=== PATIENT | male | born 1940 | race Caucasian/White ===

== ENCOUNTER 2016-07-31 13:30 | Inpatient (IN) | payer MEDICARE, OTHER ==
[~2016-07-31] VITALS: Ht 175.3 cm; Wt 94.3 kg
[2016-07-31] VITALS (17 sets, daily range): BP systolic 104–137; BP diastolic 43–94; BMI 30.2
--- NOTE | 2016-07-31 00:45 | NUR ---
ASSISTED PT TO BEDSIDE COMMODE. GAIT STEADY. MODERATE AMOUNT OF LIQUID BROWN/MAROON STOOL. FEW CLOTS. WILL CONTINUE TO MONITOR.
[2016-07-31 14:35] LABS: BASOPHILS 0.3 % (0.0-2.0); EOSINOPHILS 0.5 % (0-7); IMMATURE GRANULOCYTES 0.2 % (0-5); LYMPHOCYTES 7.8 % (15-50); MCH 29.3 pg (26.0-34.0); MCHC 32.2 g/dL (31.0-37.0); MEAN PLATELET VOLUME 11.2 fL (7.4-10.4); MONOCYTES 7.1 % (2-11); NEUTROPHILS 84.1 % (40-80); PLATELET COUNT 126 10x3/uL (130-400); RDW 16.4 % (11.5-14.5); WBC 8.8 10x3/uL (4.8-10.8)
[2016-07-31 14:45] LABS: HEMOGLOBIN 3.9 g/dL (13.5-17.5); RBC 1.33 10x6/uL (4.20-6.10)
[2016-07-31 14:46] LABS: HEMATOCRIT 12.1 % (42.0-54.0)
[2016-07-31 14:52] LABS: APPEARANCE CLEAR (CLEAR); BILIRUBIN NEGATIVE (NEGATIVE); COLOR YELLOW (YELLOW); GLUCOSE NEGATIVE (NEGATIVE); KETONE NEGATIVE (NEGATIVE); LEUKOCYTE ESTERASE NEGATIVE (NEGATIVE); NITRITE NEGATIVE (NEGATIVE); PROTEIN TRACE mg/dL (NEGATIVE); SPECIFIC GRAVITY 1.015 (1.005-1.020); UROBILINOGEN NORMAL (NORMAL)
[2016-07-31 14:54] LABS: ALBUMIN 2.8 g/dL (3.4-5.0); ANION GAP 20.2 mmol/L (8-16); BILIRUBIN - TOTAL 0.22 mg/dL (0.2-1.3); CALCIUM 8.6 mg/dL (8.5-10.1); CARBON DIOXIDE 16.5 mmol/L (21.0-32.0); CREATININE - SERUM 5.4 mg/dL (0.6-1.3); POTASSIUM - SERUM 4.7 mmol/L (3.5-5.1); PROTEIN - SERUM 4.7 g/dL (6.4-8.2)
[2016-07-31 15:00] LABS: APTT 26.8 SECONDS (22.8-39.4); INR 1.24 (0.85-1.17); PROTIME 15.5 SECONDS (11.6-15.0)
[2016-07-31] MEDS ORDERED: BAYER CHEWABLE81 MG PO (16:27)
[2016-07-31] MEDS ORDERED: NORVASC5 MG PO (16:27)
[2016-07-31] MEDS ORDERED: ZYLOPRIM300 MG PO (16:27)
[2016-07-31] MEDS ORDERED: DIPHEDRYL25 MG PO (16:29)
[2016-07-31] MEDS ORDERED: FLUTICASONE PRO16 GM NASAL (16:31)
[2016-07-31] MEDS ORDERED: GABAPENTIN100 MG PO (16:32)
[2016-07-31] MEDS ORDERED: HCTZ25 MG PO (16:33)
[2016-07-31] MEDS ORDERED: COZAAR100 MG PO (16:34)
[2016-07-31] MEDS ORDERED: SAW PALMETTO450 MG PO (16:34)
[2016-07-31] MEDS ORDERED: HYTRIN1 MG PO (16:35)
--- NOTE | 2016-07-31 19:30 | NUR ---
ASSESSMENT COMPLETE. NSR SHOWING ON MONITOR. RR CLEAR; EQUAL; NON LABORED. PT FULL ROM. PAINTER PLATE STRENGTH EQUAL. PALE DISCOLORATION TO MUCOUS MEMBRANES. PT HAS BLOOD INFUSING. FISTUAL TO LEFT FOREARM; BRUIT AND THRILL PRESENT. PIV TO RIGHT WRIST; 18 GAUGE; PATENT. PT INCONTINENT OF URINE. PT ABLE TO MAKE POSITION CHANGES INDEPENDENTLY. AAO. ANSWERS QUESTIONS APPROPRIATELY.
--- NOTE | 2016-07-31 22:00 | NUR ---
ASSISTED PT ON BEDPAN. SMALL AMOUNT LIQUID MAROON STOOL; FEW SMALL CLOTS. PT CLEANED; LINENS CHANGED.
--- NOTE | 2016-07-31 22:50 | NUR ---
PT ASSISTED TO BEDPAN. SCANT AMOUNT OF MAROON STOOL; WITH FEW CLOTS.
--- NOTE | 2016-07-31 23:20 | NUR ---
REASSESSMENT COMPLETE. NO CHANGES FROM PREVIOUS ASSESSMENT. CALL LIGHT IN REACH. WILL CONTINUE TO MONITOR.
[2016-08-01] VITALS (26 sets, daily range): BP systolic 123–161; BP diastolic 50–79; Ht 175.3 cm; Wt 94.3 kg
--- NOTE | 2016-08-01 00:45 | NUR ---
ASSISTED PT TO BEDSIDE COMMODE; GAIT STEADY. MODERATE AMOUNT OF LIQUID BROWN/MAROON STOOL; FEW CLOTS. WILL CONTINUE TO MONITOR.
[2016-08-01 00:52] LABS: HEMOGLOBIN 5.6 g/dL (13.5-17.5)
--- NOTE | 2016-08-01 01:30 | NUR ---
HGB 5.6. HCT 17.0. ORDERS TO TRANSFUSE 2 UNITS. 1ST UNIT OF 2 PRBC STARTED.
--- NOTE | 2016-08-01 03:15 | NUR ---
REASSESSMENT COMPLETE. NO CHANGES FROM PREVIOUS ASSESSMENT. WILL CONTINUE TO MONITOR.
--- NOTE | 2016-08-01 04:00 | NUR ---
2ND UNIT OF PRBC STARTED. VSS. NO SIGNS OF REACTION. WILL CONTINUE TO MONITOR.
[2016-08-01 08:28] LABS: BASOPHILS 0.2 % (0.0-2.0); EOSINOPHILS 0.8 % (0-7); IMMATURE GRANULOCYTES 0.2 % (0-5); LYMPHOCYTES 14.6 % (15-50); MCH 29.8 pg (26.0-34.0); MCHC 35.2 g/dL (31.0-37.0); MEAN PLATELET VOLUME 10.5 fL (7.4-10.4); MONOCYTES 9.9 % (2-11); NEUTROPHILS 74.3 % (40-80); WBC 8.9 10x3/uL (4.8-10.8)
--- NOTE | 2016-08-01 08:39 | NUR ---
Is the patient Alert and Oriented? Yes 0 * How many steps to enter\exit or inside your home? 1 0 * PCP DR. ZULETA 0 * Pharmacy [facility] ON [facility]. 0 * Preadmission Environment Home with Family 0 * ADLs Independent 0 * Equipment None 0 * List name and contact numbers for known caregivers / representatives who currently or will assist patient after discharge: SPOUSE: HUE BATISTA [phone] * Community resources currently utilized None 0 * Additional services required to return to the preadmission environment? No 0 * Can the patient safely return to the preadmission environment? Yes 0 * Has this patient been hospitalized within the prior 30 days at any hospital? No PATIENT IS AWAKE AND ALERT. HE STATES HE LIVES AT HOME WITH HIS , HUE. SHE WILL BE AVAILABLE TO DRIVE HIM HOME AT DISCHARGE. PATIENT STATES HE WAS INDEPENDENT IN ALL ADLS PRIOR TO ADMIT. PATIENT STATES HIS PCP IS DR ZULETA. HE GETS HIS MEDS FROM [facility] [address]. HE DENIES USE OF ANY DME. PATIENT DENIES EVER HAVING HOME HEALTH CARE. THERE IS ONLY 1 STEP TO ENTER HIS HOME. NO DISCHARGE NEEDS IDENTIFIED AT THIS TIME.
[2016-08-01 08:44] LABS: ANION GAP 17.9 mmol/L (8-16); CALCIUM 9.1 mg/dL (8.5-10.1); CARBON DIOXIDE 18.4 mmol/L (21.0-32.0); CREATININE - SERUM 4.8 mg/dL (0.6-1.3); MAGNESIUM - SERUM 2.2 mg/dL (1.8-2.4); PHOSPHOROUS 4.1 mg/dL (2.5-4.9); POTASSIUM - SERUM 4.3 mmol/L (3.5-5.1)
[2016-08-01 09:02] LABS: HEMATOCRIT 21.6 % (42.0-54.0); HEMOGLOBIN 7.6 g/dL (13.5-17.5); RBC 2.55 10x6/uL (4.20-6.10)
[2016-08-01 09:03] LABS: MCV 84.7 fL (80.0-100.0); PLATELET COUNT 98 10x3/uL (130-400)
[2016-08-01 10:32] LABS: PLATELET ESTIMATE DECREASED
--- NOTE | 2016-08-01 11:15 | NUR ---
EGD COMPLETE BY DR SCOTT, DISCUSSED TRANSFUSION PARAMETERS.
[2016-08-01 16:07] LABS: CREATININE - URINE 35.6 mg/dL (30-125); PROTEIN - URINE 45.5 mg/dL (0.0-11.9)
[2016-08-01 16:23] LABS: HEMATOCRIT 25.3 % (42.0-54.0); HEMOGLOBIN 8.4 g/dL (13.5-17.5)
--- NOTE | 2016-08-01 19:30 | NUR ---
ASSESSMENT COMPLETE. RR CLEAR. PT AAO. PT FULL ROM; MOVES INDEPENDENTLY. DENIES PAIN. RADIAL AND PEDAL PULSES PALPATED. PERRLA. VSS. CALL LIGHT IN REACH. SEE FLOW SHEET FOR DETAILS.
--- NOTE | 2016-08-01 21:45 | NUR ---
PT WATCHING TV. DENIES ANY FURTHER NEEDS AT THIS TIME. CALL LIGHT IN REACH. VSS. WILL CONTINUE TO MONITOR.
--- NOTE | 2016-08-01 23:05 | NUR ---
REASSESSMENT COMPLETE. NO CHANGES FROM PREVIOUS ASSESSMENT. CALL LIGHT IN REACH. WILL CONTINUE TO MONITOR.
[2016-08-02] VITALS (16 sets, daily range): BP systolic 129–165; BP diastolic 43–88
--- NOTE | 2016-08-02 00:40 | NUR ---
COMPLETE BEDBATH. ISBELL CARE. COMPLETE LINEN CHANGE. PT AMBULATED TO BEDSIDE COMMODE; GAIT STEADY; SLIGHT WEAKNESS IN LOWER EXTREMITIES. WILL CONTINUE TO MONITOR.
--- NOTE | 2016-08-02 03:00 | NUR ---
REASSESSMENT COMPLETE. NO CHANGES FROM PREVIOUS ASSESSMENT. CALL LIGHT IN REACH. VSS. NO DISTRESS NOTED. SEE FLOW SHEET FOR DETAILS. WILL CONTINUE TO MONITOR.
[2016-08-02 04:35] LABS: BASOPHILS 0.2 % (0.0-2.0); EOSINOPHILS 1.9 % (0-7); HEMATOCRIT 24.5 % (42.0-54.0); HEMOGLOBIN 8.3 g/dL (13.5-17.5); IMMATURE GRANULOCYTES 0.3 % (0-5); LYMPHOCYTES 16.1 % (15-50); MCH 28.7 pg (26.0-34.0); MCHC 33.9 g/dL (31.0-37.0); MCV 84.8 fL (80.0-100.0); MEAN PLATELET VOLUME 10.7 fL (7.4-10.4); MONOCYTES 10.1 % (2-11); NEUTROPHILS 71.4 % (40-80); PLATELET COUNT 92 10x3/uL (130-400); RBC 2.89 10x6/uL (4.20-6.10); RDW 16.9 % (11.5-14.5); WBC 8.8 10x3/uL (4.8-10.8)
[2016-08-02 04:46] LABS: ANION GAP 16.3 mmol/L (8-16); CALCIUM 9.2 mg/dL (8.5-10.1); CARBON DIOXIDE 18.5 mmol/L (21.0-32.0); CREATININE - SERUM 3.9 mg/dL (0.6-1.3); MAGNESIUM - SERUM 2.1 mg/dL (1.8-2.4); PHOSPHOROUS 3.5 mg/dL (2.5-4.9); POTASSIUM - SERUM 3.8 mmol/L (3.5-5.1)
--- NOTE | 2016-08-02 07:15 | NUR ---
REPORT RECIEVED FROM WINDOWS DESKTOP ENGINEER NURSE. PT RESTING IN BED QUIETLY. NO S/SX OF ACUTE DISTRESS NOTED AT THIS TIME. CALL LIGHT IN REACH. BED IN LOW POSITION. ASSESSMENT COMPLETE PER FLOWSHEET.
[2016-08-02 08:28] LABS: HEMATOCRIT 26.3 % (42.0-54.0); HEMOGLOBIN 8.8 g/dL (13.5-17.5)
--- NOTE | 2016-08-02 08:30 | NUR ---
ASSISTED TO BSC. SMALL AMOUNT OF FORMED DARK STOOL NOTED. NO SIGNS OF ACTIVE BLEEDING.
--- NOTE | 2016-08-02 11:00 | NUR ---
ASSISTED TO BSC. MOD AMOUNT OF DARK STOOL NOTED. WILL CONT TO ASSESS FOR SIGNS OF BLEEDING.
--- NOTE | 2016-08-02 12:00 | NUR ---
ASSISTED TO SIDE OF BED FOR MEAL TRAY. DENIES FURTHER NEEDS. CALL LIGHT IN REACH. BED ALARM ON.
--- NOTE | 2016-08-02 13:45 | NUR ---
DR. SCOTT AT BEDSIDE. ORDER RECIEVED TO TRANSFER TO THE FLOOR.
--- NOTE | 2016-08-02 15:30 | NUR ---
PATIENT RECEIVED TO FLOOR FROM ICU VIA WHEELCHAIR. NO SIGNS OF DISTRESS NOTED. SITTING UP IN CHAIR ALERT WITH FAMILY PRESENT. ORIENTED TO ROOM. DENIES NEEDS. CALL LIGHT IN REACH.
--- NOTE | 2016-08-02 18:15 | NUR ---
SITTING UP IN CHAIR AT BEDSIDE ALERT. DENIES NEEDS. FAMILY PRESENT. CALL LIGHT IN REACH.
[2016-08-02 22:22] LABS: HEMATOCRIT 24.8 % (42.0-54.0); HEMOGLOBIN 8.5 g/dL (13.5-17.5)
[2016-08-03] VITALS: BP 150/63
--- NOTE | 2016-08-03 01:52 | NUR ---
EYES CLOSED. RESP EVEN AND UNLABORED. CL IN REACH. AT BEDSIDE.
--- NOTE | 2016-08-03 03:15 | NUR ---
RN NOTE: PT LYING ON RIGHT SIDE WITH EYES CLOSED AND EASY RESPIRATIONS. ISBELL CATHETER DRAINING TO GRAVITY WITY YELLOW URINE IN COLLECTION BAG. FAMILY MEMBER AT BEDSIDE. SIDE RAILS UP X2 FOR SAFETY.
[2016-08-03 04:00] VITALS: BP 160/86
--- NOTE | 2016-08-03 05:49 | NUR ---
AROUSES EASILY. NO COMPLAINTS VOICED. CL IN REACH. AT BEDSIDE
[2016-08-03 06:01] LABS: APTT 27.9 SECONDS (22.8-39.4); BASOPHILS 0.3 % (0.0-2.0); EOSINOPHILS 3.7 % (0-7); HEMATOCRIT 24.6 % (42.0-54.0); HEMOGLOBIN 8.3 g/dL (13.5-17.5); IMMATURE GRANULOCYTES 0.1 % (0-5); INR 1.12 (0.85-1.17); LYMPHOCYTES 18.1 % (15-50); MCH 29.2 pg (26.0-34.0); MCHC 33.7 g/dL (31.0-37.0); MCV 86.6 fL (80.0-100.0); MEAN PLATELET VOLUME 10.4 fL (7.4-10.4); MONOCYTES 13.3 % (2-11); NEUTROPHILS 64.5 % (40-80); PLATELET COUNT 110 10x3/uL (130-400); PROTIME 14.3 SECONDS (11.6-15.0); RBC 2.84 10x6/uL (4.20-6.10); RDW 16.8 % (11.5-14.5); WBC 7.6 10x3/uL (4.8-10.8)
[2016-08-03 06:35] LABS: % SATURATION 8 % (15-55); IRON 28 ug/dl (35-150); TOTAL IRON BIND CAPACITY 314 ug/dl (260-445); UNSAT IRON BIND CAPACITY 286 ug/dl (150-375)
[2016-08-03 06:44] LABS: ANION GAP 14.7 mmol/L (8-16); CALCIUM 9.1 mg/dL (8.5-10.1); CARBON DIOXIDE 19.8 mmol/L (21.0-32.0); CREATININE - SERUM 3.3 mg/dL (0.6-1.3); PHOSPHOROUS 3.8 mg/dL (2.5-4.9); POTASSIUM - SERUM 3.5 mmol/L (3.5-5.1)
[2016-08-03 06:45] LABS: MAGNESIUM - SERUM 1.8 mg/dL (1.8-2.4)
[2016-08-03] MEDS ORDERED: PROCRIT/EP10000 UNIT SC (08:18)
[2016-08-03] MEDS ORDERED: PROTONIX40 MG PO (08:19)
[2016-08-03 08:30] VITALS: BP 153/68
--- NOTE | 2016-08-03 09:45 | NUR ---
D/C ISBELL CATHETER. PATIENT TOLERATED WELL. EMPTIED 1800ML FROM ISBELL CATHETER.
--- NOTE | 2016-08-03 10:50 | NUR ---
CM REASSESSMENT NOTE: PATIENT IS DISCHARGING HOME TODAY WITH [facility] / PT AND PATIENTS SIGNED THE EBONY FORM. PATIENTS WALKER IS BEING DELIVERED TO HOSPITAL BEFORE DISCHARGE. PATIENTS WILL DRIVE HIM HOME AT DISCHARGE.
[2016-08-03 12:28] VITALS: BP 112/71
--- NOTE | 2016-08-04 08:17 | DS ---
PATIENT:Tien BATISTA :36 MEDICAL RECORD: [id number] DISCHARGE SUMMARY ADMISSION DATE: 07/31/16 DISCHARGE DATE: 08/03/16 DATE OF ADMISSION: 07/31/2016 DATE OF DISCHARGE: 08/03/2016 ADMISSION DIAGNOSES: Acute to acute gastrointestinal bleed, [id number] renal failure. DISCHARGE DIAGNOSES: Acute gastrointestinal bleed, zxmih-eq-ttenush renal failure. HOSPITAL COURSE: The patient was admitted to the Emergency Room, was hypotensive. Hemoglobin was 3.9, hematocrit 12.1, BUN was 117, creatinine was 5.4. The patient was hypotensive. He was admitted to the ICU. GI, Dr. Watson consulted and nephrology was consulted. The patient was typed and crossed and transfused a total of 6 units packed red blood cells. Underwent EGD, no significant findings. Renal function normalized with fluids and transfusion. H&H has been stable for 48 hours. The patient is anxious to go home. Vital signs are stable. Temperature 98.4, heart rate 66, respirations 18, blood pressure 160/86, O2 sat 96% room air. He is alert, oriented, no distress. H&H is significantly improved. Again, has remained stable for 48 hours. Presently at 8.3 and 24.6. The patient has been cleared for discharge by GI and nephrology. He will follow up in the clinic in 1 week and he will return immediately to the Emergency Room with worsening symptoms. DISCHARGE MEDICATIONS: Per med rec. Please see chart for further details of this case, also referred to agree with assessment by consulting physicians. TRANSINT:[id number] Voice Confirmation ID: [id number] DOCUMENT ID: [id number] CHRISTY CONTRERAS DO at 0817 CC: [id number] DICTATION DATE: 08/03/16826 [employer] OPERATIONS SUPERINTENDENT: 08/03/16 2317 DIS IN 08/03/16 [place] [id number] [place] [id number]
== END 2016-08-03 14:08 | disposition home health service (06) | DRG 377 ==
LOC: D.ER 13:30 → EDBD 13:30 → D.MS 15:46 → D.ICU 15:46 → D.MS 08-02 15:38
PROVIDERS: Emergency Medicine; Family Medicine; Internal Medicine Gastroenterology; Internal Medicine Nephrology; ADMIT Family Medicine
PROC: 0DJ08ZZ Inspection of Upper Intestinal Tract, Via Natural or Artificial Opening Endoscopic (ICD-10-PCS; principal; 2016-08-01 11:00)
DX: K92.2 Gastrointestinal hemorrhage, unspecified (principal); N17.0 Acute kidney failure with tubular necrosis; N18.4 Chronic kidney disease, stage 4 (severe); D62 Acute posthemorrhagic anemia; I12.9 Hypertensive chronic kidney disease with stage 1 through stage 4 chronic kidney disease, or unspecified chronic kidney disease; Z87.891 Personal history of nicotine dependence

== ENCOUNTER 2018-10-18 07:20 | Inpatient (IN) | payer MEDICARE, OTHER ==
[2018-10-18] VITALS (8 sets, daily range): BP systolic 93–145; BP diastolic 45–82; BMI 26.7
[~2018-10-18 07:20] MED LIST: BAYER CHEWABLE81 MG PO; COZAAR100 MG PO; DIPHEDRYL25 MG PO; FLUTICASONE PRO16 GM NASAL; GABAPENTIN100 MG PO; HCTZ25 MG PO; HYTRIN1 MG PO; NORVASC5 MG PO; PROCRIT/EP10000 UNIT SC; PROTONIX40 MG PO; SAW PALMETTO450 MG PO; ZYLOPRIM300 MG PO
[2018-10-18 07:52] LABS: APPEARANCE CLEAR (CLEAR); BACTERIA FEW /hpf (NONE SEEN); BILIRUBIN NEGATIVE (NEGATIVE); COLOR YELLOW (YELLOW); EPITHELIAL CELLS 0-5 /hpf (0-5); GLUCOSE NEGATIVE (NEGATIVE); KETONE NEGATIVE (NEGATIVE); MUCUS <1+ /lpf (NONE SEEN); NITRITE NEGATIVE (NEGATIVE); PROTEIN 2+ mg/dL (NEGATIVE); RED CELLS - URINE OCC /hpf (0-5); SPECIFIC GRAVITY 1.015 (1.005-1.020); UROBILINOGEN NORMAL (NORMAL); WHITE CELLS - URINE OCC /hpf (0-5)
[2018-10-18 07:53] LABS: GRANULAR CAST RARE /lpf (NONE SEEN)
[2018-10-18 07:55] LABS: BASOPHILS 0.2 % (0-2); EOSINOPHILS 0.4 % (0-7); HEMATOCRIT 28.5 % (42.0-54.0); HEMOGLOBIN 9.1 g/dL (13.5-17.5); IMMATURE GRANULOCYTES 0.2 % (0-5); LYMPHOCYTES 10.6 % (15-50); MCHC 31.9 g/dL (31.0-37.0); MCV 87.7 fL (80.0-100.0); MEAN PLATELET VOLUME 10.1 fL (7.4-10.4); NEUTROPHILS 77.6 % (40-80); PLATELET COUNT 123 10x3/uL (130-400); RBC 3.25 10x6/uL (4.20-6.10); RDW 15.5 % (11.5-14.5); WBC 10.4 10x3/uL (4.8-10.8)
[2018-10-18 08:10] LABS: ALBUMIN 3.5 g/dL (3.4-5.0); ANION GAP 19.5 mmol/L (8-16); BILIRUBIN - TOTAL 0.58 mg/dL (0.2-1.3); CALCIUM 9.8 mg/dL (8.5-10.1); CARBON DIOXIDE 23.8 mmol/L (21.0-32.0); CREATININE - SERUM 6.7 mg/dL (0.6-1.3); POTASSIUM - SERUM 3.3 mmol/L (3.5-5.1); PROTEIN - SERUM 7.3 g/dL (6.4-8.2)
[2018-10-18] MEDS ORDERED: LASIX80 MG PO (08:17)
[2018-10-18] MEDS ORDERED: SODIUM BICARBO650 MG PO (08:17)
[2018-10-18] MEDS ORDERED: BAYER CHEWABLE81 MG PO (08:18)
[2018-10-18] MEDS ORDERED: VITAMIN D250000 UNIT PO (08:18)
[2018-10-18] MEDS ORDERED: ZYLOPRIM300 MG PO (08:19)
[2018-10-18] MEDS ORDERED: NORVASC5 MG PO (08:19)
[2018-10-18] MEDS ORDERED: ULTRAM50 MG PO (08:20)
[2018-10-18] MEDS ORDERED: ROCALTROL0.25 MCG PO (08:20)
[2018-10-18] MEDS ORDERED: [UNRECOGNIZED DRUG - CODE] PO (08:21)
[2018-10-18] MEDS ORDERED: BIOFREEZE118 ML TOPICAL (08:21)
--- NOTE | 2018-10-18 09:46 | NUR ---
PT RESTING WITH EYES CLOSED, AT BEDSIDE.
--- NOTE | 2018-10-18 11:50 | NUR ---
NEW PATIENT ADMIT TO ROOM ACCOMPANIED BY . PATIENT TO ROOM VIA AND HOSPITAL PERSONNEL. PATIENT CHANGED INTO GOWN , NON SLIP SOCKS AND RESTING IN BED. PATIENT AND FAMILY ORIENTED TO ROOM, TV,AND CALL LIGHT. PATIENT IS STABLE AND VSS. NO ACUTE DISTRESS NOTED. PT ON RA. IV 20G SL TO RT WRIST. WILL PROCEED WITH PLAN OF CARE. BED IN LOW POSITION SR UP X 2 AND CALL LIGHT IN REACH.
--- NOTE | 2018-10-18 14:35 | NUR ---
PATIENT LAYING IN BED WITH EYES CLOSED AND BREATHING EVENLY. AT BS. WILL CONTINUE TO MONITOR. SR UP X 2 BED IN LOW POSITION AND CALL LIGHT IN REACH.
--- NOTE | 2018-10-18 17:30 | NUR ---
PER V/O DR MCCORMACK, BLADDER SCAN PATIENT. IF MORE THAN 300 CC'S, PLACE ISBELL CATHETER. SCANNED PATIENT WITH 264. DR MCCORMACK STILL ON UNIT AND REPORTED RESULTS. INSTRUCTED TO HAVE PUBLIC TRANSIT TROLLEY DRIVER REPEAT DURING SHIFT AND FOLLOW SAME ORDER. WILL GIVE INSTRUCTIONS IN PUBLIC TRANSIT TROLLEY DRIVER.
--- NOTE | 2018-10-18 19:33 | NUR ---
RECEIVED REPORT, WILL ASSUME CARE OF PT, AT BEDSIDE, BED IS LOW, SRX2, CALL LIGHT IN REACH, WILL CONTINUE PLAN OF CARE
--- NOTE | 2018-10-18 21:19 | NUR ---
PM MEDS GIVEN, PROVIDED URINAL FOR I&O, PROVIDED ICE WATER, CALL LIGHT IN REACH, WILL CONTINUE PLAN OF CARE
[2018-10-19] VITALS: BP 134/57
--- NOTE | 2018-10-19 02:52 | NUR ---
I have reviewed this patient and I concur with the Shift Assessment completed by the Licensed Practical Nurse today this shift.
[2018-10-19 04:00] VITALS: BP 94/58
[2018-10-19 05:54] LABS: BASOPHILS 0.1 % (0-2); EOSINOPHILS 0.6 % (0-7); HEMATOCRIT 27.4 % (42.0-54.0); HEMOGLOBIN 8.8 g/dL (13.5-17.5); IMMATURE GRANULOCYTES 0.3 % (0-5); LYMPHOCYTES 7.9 % (15-50); MCH 27.8 pg (26.0-34.0); MCHC 32.1 g/dL (31.0-37.0); MCV 86.7 fL (80.0-100.0); MEAN PLATELET VOLUME 11.4 fL (7.4-10.4); MONOCYTES 10.5 % (2-11); NEUTROPHILS 80.6 % (40-80); PLATELET COUNT 130 10x3/uL (130-400); RBC 3.16 10x6/uL (4.20-6.10); RDW 15.2 % (11.5-14.5)
[2018-10-19 06:23] LABS: ALBUMIN 3.1 g/dL (3.4-5.0); ANION GAP 18.6 mmol/L (8-16); BILIRUBIN - TOTAL 0.57 mg/dL (0.2-1.3); CALCIUM 9.6 mg/dL (8.5-10.1); CARBON DIOXIDE 25.5 mmol/L (21.0-32.0); CREATININE - SERUM 6.7 mg/dL (0.6-1.3); MAGNESIUM - SERUM 1.8 mg/dL (1.8-2.4); POTASSIUM - SERUM 3.1 mmol/L (3.5-5.1); PROTEIN - SERUM 7.1 g/dL (6.4-8.2)
--- NOTE | 2018-10-19 07:48 | NUR ---
PT RESTING IN BED WITH AT BEDSIDE, SHIFT ASSESSMENT PERFORMED. PT STATES HIS NAME AND WITHOUT HESITATION, BUT WHEN ASKED THE YEAR HE STATES IT IS 1921. HIS TELLS HIM NO AND ASKS AGAIN WHAT YEAR IT IS. THE PT STATES 1921 ONCE AGAIN. THE PT STATES HE IS IN [place] AND AT A HOSPITAL. NURSE ADVISED THE PT THAT HE WAS IN [place] AT [facility]. THE PT LOOKS CONFUSED AND NURSE ASKED PT IF HE REMEMBERS BEING IN [place]. THE PT SHAKES HIS HEAD NO. THE IS CONCERNED AND STATES THE PT HAS BEEN CONFUSED BUT NOT THIS BAD. WILL DISCUSS WITH MD. AM MEDICATIONS GIVEN ORDERED. PT TOLERATED WELL. CALL LIGHT WITHIN REACH. WILL CONT TO FOLLOW POC
[2018-10-19 08:00] VITALS: BP 149/61
[2018-10-19 12:00] VITALS: BP 140/57
--- NOTE | 2018-10-19 12:20 | NUR ---
PT RESTING IN BED, AT BEDSIDE. DENIES ANY NEEDS AT THIS TIME, WILL CONT TO FOLLOW POC
--- NOTE | 2018-10-19 16:25 | NUR ---
CALLED WITH PT BLADDER SCAN RESULTS. PT HAD 248 IN HIS BLADDER. PER PLACE ISBELL CATHETER. CALLED RAND BUTTER AND OBTAINED KUDAY CATHETER SINCE THE PT PROSTATE IS ENLARGED ON IMAGING. 16FR KUDAY ISBELL CATHETER INSERTED X1 ATTEMPT. PT TOLERATED WELL. WILL CONT TO FOLLOW POC
[2018-10-19 16:30] VITALS: BP 138/62
--- NOTE | 2018-10-19 19:28 | NUR ---
RECEIVED REPORT, WILL ASSUME CARE OF PT, SLEEPING, NO DISTRESS NOTICED AT THIS TIME, AT BEDSIDE, BED IS LOW, SRX2, CALL LIGHT IN REACH, WILL CONTINUE PLAN OF CARE
[2018-10-19 20:18] VITALS: BP 118/59
[2018-10-20] VITALS (7 sets, daily range): BP systolic 126–147; BP diastolic 62–73
--- NOTE | 2018-10-20 00:45 | NUR ---
I have reviewed this patient and I concur with the Shift Assessment completed by the Licensed Practical Nurse today this shift.
--- NOTE | 2018-10-20 01:00 | NUR ---
PT COMPLAINS OF PAIN, GAVE TRAMADOL ORDERED
[2018-10-20 06:34] LABS: BASOPHILS 0.2 % (0-2); EOSINOPHILS 0.7 % (0-7); HEMATOCRIT 26.8 % (42.0-54.0); HEMOGLOBIN 8.8 g/dL (13.5-17.5); IMMATURE GRANULOCYTES 0.7 % (0-5); LYMPHOCYTES 8.3 % (15-50); MCH 28.2 pg (26.0-34.0); MCHC 32.8 g/dL (31.0-37.0); MCV 85.9 fL (80.0-100.0); MEAN PLATELET VOLUME 12.1 fL (7.4-10.4); MONOCYTES 9.6 % (2-11); NEUTROPHILS 80.5 % (40-80); PLATELET COUNT 145 10x3/uL (130-400); RBC 3.12 10x6/uL (4.20-6.10); RDW 15.2 % (11.5-14.5); WBC 12.5 10x3/uL (4.8-10.8)
[2018-10-20 06:43] LABS: ANION GAP 19.3 mmol/L (8-16); BILIRUBIN - TOTAL 0.52 mg/dL (0.2-1.3); CALCIUM 9.5 mg/dL (8.5-10.1); CARBON DIOXIDE 25.7 mmol/L (21.0-32.0); CREATININE - SERUM 6.2 mg/dL (0.6-1.3); MAGNESIUM - SERUM 1.6 mg/dL (1.8-2.4); PROTEIN - SERUM 6.5 g/dL (6.4-8.2)
--- NOTE | 2018-10-20 08:30 | NUR ---
PT RESTING IN BED, SHIFT ASSESSMENT PERFORMED. AT BEDSIDE. HEMATURIA NOTED IN ISBELL CATHETER. ASKED PT IF THE CATHETER HURTS, PT STATES IT HURTS A LITTLE AND THE STATED THAT THE PT GOT UP TO THE COMMODE AND FORGOT TO CARRY THE BAG. DENIES NEEDS AT THIS TIME. CALL LIGHT WITHIN REACH. WILL CONT TO FOLLOW POC
--- NOTE | 2018-10-20 12:30 | NUR ---
PT RESTING IN BED, DENIES ANY NEEDS AT THIS TIME. CALL LIGHT WITHIN REACH. WILL CONT TO FOLLOW POC
--- NOTE | 2018-10-20 18:13 | NUR ---
PT RESTING IN BED, AT BEDSIDE. DENIES ANY NEEDS AT THIS TIME. WILL CONT TO FOLLOW POC
--- NOTE | 2018-10-20 20:08 | NUR ---
EVENING ROUNDS COMPLETED. REPORT RECEIVED. PT SITTING UP IN BED WITH EYES OPEN, RR EVEN AND UNLABORED. AT BEDSIDE. INTRODUCED SELF TO PT. PT DENIES FURTHER NEEDS AT THIS TIME. CALL LIGHT IN REACH. WILL CTM.
--- NOTE | 2018-10-21 01:42 | NUR ---
I have reviewed this patient and I concur with the Shift Assessment completed by the Licensed Practical Nurse today this shift.
[2018-10-21 03:45] VITALS: BP 134/68
[2018-10-21 06:27] LABS: BASOPHILS 0.2 % (0-2); EOSINOPHILS 1.8 % (0-7); HEMATOCRIT 26.9 % (42.0-54.0); HEMOGLOBIN 8.7 g/dL (13.5-17.5); IMMATURE GRANULOCYTES 0.2 % (0-5); LYMPHOCYTES 7.6 % (15-50); MCH 28.2 pg (26.0-34.0); MCHC 32.3 g/dL (31.0-37.0); MCV 87.1 fL (80.0-100.0); MEAN PLATELET VOLUME 12.2 fL (7.4-10.4); MONOCYTES 9.4 % (2-11); NEUTROPHILS 80.8 % (40-80); PLATELET COUNT 158 10x3/uL (130-400); RBC 3.09 10x6/uL (4.20-6.10); RDW 15.3 % (11.5-14.5); WBC 12.5 10x3/uL (4.8-10.8)
[2018-10-21 06:34] LABS: ANION GAP 18.6 mmol/L (8-16); BILIRUBIN - TOTAL 0.46 mg/dL (0.2-1.3); CALCIUM 9.4 mg/dL (8.5-10.1); CARBON DIOXIDE 25.7 mmol/L (21.0-32.0); CREATININE - SERUM 5.7 mg/dL (0.6-1.3); MAGNESIUM - SERUM 1.8 mg/dL (1.8-2.4); PHOSPHOROUS 7.2 mg/dL (2.5-4.9); POTASSIUM - SERUM 3.3 mmol/L (3.5-5.1); PROTEIN - SERUM 6.4 g/dL (6.4-8.2)
--- NOTE | 2018-10-21 07:23 | NUR ---
ALERT AND ORIENTED TO SELF. LUNGS CLEAR BILATERALLY IN ALL RODRIGUEZ. HEART SOUNDS S1 AND S2 HEARD IN ALL RODRIGUEZ. BOWEL SOUNDS ACTIVE X 4. STATES LAST HAD 2 BMS THURSDAY 10/19. SKIN INTACT WITHOUT REDNESS. IV TO RIGHT WRIST PATENT WITHOUT REDNESS. DENIES PAIN. DENIES NEEDS. BED LOW. FALL PRECAUTIONS IN PLACE. CALL ARAUJO AND PERSONAL ITEMS IN REACH. WILL CONTINUE TO MONITOR.
[2018-10-21 07:55] VITALS: BP 137/69
--- NOTE | 2018-10-21 09:00 | NUR ---
MEDICATIONS GIVEN WITHOUT DIFFICULTY. AT BEDSIDE. DENIES NEEDS.
--- NOTE | 2018-10-21 11:01 | NUR ---
SLEEPING. AT BEDSIDE.
[2018-10-21 12:06] VITALS: BP 139/68
--- NOTE | 2018-10-21 12:11 | NUR ---
LUNCH AT BEDSIDE. ADJUSTED IN BED PER STAFF. DENIES NEEDS.
--- NOTE | 2018-10-21 13:59 | NUR ---
RESTING IN BED. DENIES NEEDS.
[2018-10-21 16:30] VITALS: BP 111/60
--- NOTE | 2018-10-21 17:34 | NUR ---
DINNER AT BEDSIDE. DENIES NEEDS.
--- NOTE | 2018-10-21 18:16 | NUR ---
RESTING IN BED. DENIES NEEDS.
--- NOTE | 2018-10-21 19:20 | NUR ---
RECEIVED REPORT, WILL ASSUME CARE OF PT, SLEEPING, AT BEDSIDE, BED IS LOW, SRX2, CALL LIGHT IN REACH, WILL CONTINUE PLAN OF CARE
[2018-10-21 21:24] VITALS: BP 133/67
[2018-10-22 00:36] VITALS: BP 146/66
--- NOTE | 2018-10-22 05:29 | NUR ---
I have reviewed this patient and I concur with the Shift Assessment completed by the Licensed Practical Nurse today this shift.
--- NOTE | 2018-10-22 05:30 | NUR ---
I have reviewed this patient and I concur with the Shift Assessment completed by the Licensed Practical Nurse today this shift.
[2018-10-22 05:37] VITALS: BP 135/69
[2018-10-22 05:43] LABS: BASOPHILS 0.1 % (0-2); EOSINOPHILS 3.5 % (0-7); HEMATOCRIT 27.5 % (42.0-54.0); HEMOGLOBIN 8.8 g/dL (13.5-17.5); IMMATURE GRANULOCYTES 0.4 % (0-5); LYMPHOCYTES 7.3 % (15-50); MCV 87.6 fL (80.0-100.0); MEAN PLATELET VOLUME 10.6 fL (7.4-10.4); MONOCYTES 8.6 % (2-11); NEUTROPHILS 80.1 % (40-80); PLATELET COUNT 140 10x3/uL (130-400); RBC 3.14 10x6/uL (4.20-6.10); RDW 15.3 % (11.5-14.5); WBC 10.7 10x3/uL (4.8-10.8)
[2018-10-22 06:03] LABS: ALBUMIN 2.8 g/dL (3.4-5.0); ANION GAP 17.5 mmol/L (8-16); BILIRUBIN - TOTAL 0.52 mg/dL (0.2-1.3); CALCIUM 9.6 mg/dL (8.5-10.1); CARBON DIOXIDE 26.7 mmol/L (21.0-32.0); CREATININE - SERUM 5.4 mg/dL (0.6-1.3); MAGNESIUM - SERUM 1.8 mg/dL (1.8-2.4); POTASSIUM - SERUM 3.2 mmol/L (3.5-5.1); PROTEIN - SERUM 7.1 g/dL (6.4-8.2)
--- NOTE | 2018-10-22 07:45 | NUR ---
ALERT AND ORIENTED TO SELF WITH CONFUSION. LUNGS CLEAR BILATERALLY IN ALL RODRIGUEZ. HEART SOUNDS S1 AND S2 HEARD IN ALL RODRIGUEZ. BOWEL SOUNDS ACTIVE X 4. IV TO RIGHT WRIST PATENT WITHOUT REDNESS. LEFT AV FISTULA PATENT. ISBELL IN PLACE WITH HEMATURIA. STATES PATIENT TRIED TO PULL OUT ISBELL LAST NIGHT. NO SWELLING OR SIGNS OF TRAUMA NOTED. DENIES PAIN. DENIES NEEDS. BED LOW. CALL ARAUJO AND PERSONAL ITEMS IN REACH. WILL CONTINUE TO MONITOR.
[2018-10-22 07:56] VITALS: BP 132/61
--- NOTE | 2018-10-22 10:12 | NUR ---
RESTING IN BED. AT BEDSIDE. DENIES PAIN. DENIES NEEDS.
--- NOTE | 2018-10-22 11:59 | NUR ---
LUNCH AT BEDSIDE. AT BEDSIDE. DENIES NEEDS.
[2018-10-22 12:03] VITALS: BP 124/76
[2018-10-22 13:39] VITALS: BMI 27.1
[2018-10-22 14:11] LABS: HEPATITIS C ANTIBODY 0.1 S/CO RAT (0.0-0.9)
--- NOTE | 2018-10-22 15:13 | NUR ---
Rehab Note- Acute Inpatient Rehab prescreen order received. The patient has a pending PT Eval- will await & see the patient's functional mobililty. Will continue to follow. Thank you for this referral! Rae Keenan RN CLinical Liaison, [facility] Rehab
--- NOTE | 2018-10-22 15:39 | NUR ---
RESTING IN BED. AT BEDSIDE. DENIES NEEDS.
--- NOTE | 2018-10-22 15:54 | MORECARE ---
CASE MANAGEMENT DISCHARGE SUMMARY PATIENT: Tien BATISTA UNIT: [id number] ADM DATE: 10/18/18 AGE: 77 : 38 SEX: M ROOM[facility]BED: D.[facility] AUTHOR: NISHANT VICK PHYSICIAN: REFERRING PHYSICIAN: PAO PATEL MD DATE OF SERVICE: 10/22/18 Discharge Plan Patient Name: Tien BATISTA Facility: [facility]:[place] : 1940 Planned Disposition: Inpatient Rehab Anticipated Discharge Date: 10/23/18 Discharge Date: Expected LOS: 5 Initial Reviewer: [email or web address] Initial Review Date: 10/22/2018 Generated: 10/22/18 4:54 pm DCPIA - Discharge Planning Initial Assessment Updated by ASPEN: Ambrosio Lynn on 10/22/18 3:51 pm * Is the patient Alert and Oriented? Yes * How many steps to enter\exit or inside your home? * PCP DR. ZULETA * [facility]acy [facility] [address] * Preadmission Environment Home with Family * ADLs Independent * Equipment Walker * Other Equipment NO MEDICAL EQUIPMENT PROVIDER PREFERENCE * List name and contact numbers for known caregivers / representatives who currently or will assist patient after discharge: HUE BATISTA, SPOUSE, * Verbal permission to speak to the caregivers and representatives has been obtained from the patient. Yes * Community resources currently utilized None * Please name any agencies selected above. NONE * Additional services required to return to the preadmission environment? Yes * Can the patient safely return to the preadmission environment? Yes * Has this patient been hospitalized within the prior 30 days at any hospital? No Coverage Notice Reviewer: [id number] - Ambrosio Lynn Notice Issued Date-Time: 10/22/2018 15:40 Notice Type: IM Discharge Notice Notice Delivered To: Family Member Relationship to Patient: Spouse Caster Investment Casting Name: HUE BATISTA Delivery Method: HAND - Hand Delivered Nadine Days: Prior Verbal Notification: Recipient Understood Notice: Yes Recipient Signature: Yes Med Rec Note Co-signed by Attending: Coverage Notice Comment: Patient Name: Tien BATISTA Page [id number] at 1554 All edits/amendments must be made on the electronic document DICTATION DATE: 10/22/181552 SALES SUPPORT ASSOCIATE: KIMBERLY 10/22/181552 RPT#: [id number] DC DATE: STATUS: ADM IN [facility] [address] [place] [address] END OF REPORT
[2018-10-22 15:55] VITALS: BP 141/63
--- NOTE | 2018-10-22 16:03 | MORECARE ---
CASE MANAGEMENT DISCHARGE SUMMARY PATIENT: Tien BATISTA UNIT: [id number] ADM DATE: 10/18/18 AGE: 77 : 38 SEX: M ROOM/BED: D.2139 AUTHOR: NICANORDOC PHYSICIAN: REFERRING PHYSICIAN: PAO PATEL MD DATE OF SERVICE: 10/22/18 Discharge Plan Patient Name: Tien BATISTA [facility] [facility] 1940 Planned Disposition: Inpatient Rehab Anticipated Discharge Date: 10/23/18 Discharge Date: Expected LOS: 5 Initial Reviewer: [email or web address] Initial Review Date: 10/22/2018 Generated: 10/22/18 5:03 pm Comments DCP- Discharge Planning Updated by [email or web address]: Ambrosio Lynn on 10/22/18 2:[address] Patient Name: Tien BATISTA Admission Status: ER Accout number: [id number] Admission Date: 10-18-2018 : 1940 Admission Diagnosis: Attending: PABLO PATEL Current LOS: 4 Anticipated DC Date: 10-23-2018 Planned Disposition: Inpatient Rehab Primary Insurance: MEDICARE A & B PLANNED EXTERNAL PROVIDER: [facility] INPATIENT REHAB Discharge Planning Comments: CM RECEIVED ORDER FOR INPATIENT REHAB PRESCREENING. CM MET WITH PT AND SPOUSE IN ROOM TO DISCUSS DISCHARGE PLANNING AND NEEDS. Tien BATISTA provided verbal consent to discuss current and ongoing needs with/in the presence of: SPOUSE, JOESharifa. PT REPORTS LIVING AT HOME INDEPENDENTLY WITH SPOUSE; PT REPORTS SHE HELPS PT WASH HIS BACK AT HOME, PT HAS OTHERWISE BEEN INDEPENDENT UNTIL GETTING SICK. PT HAS WALKER WITH NO MEDICAL EQUIPMENT PROVIDER PREFERNECE. PT HAS NO OUTSIDE SERVICES ASSISTING IN THE HOME. CM DISCUSSED AVAILABILITY OF HOME HEALTH, REHAB SERVICES AND MEDICAL EQUIPMENT. PT AND SPOUSE WOULD CONSIDER REHAB AT [place], NO WHERE ELSE, WITH PLAN TO DISCHARGE HOME WITH SPOUSE AFTER REHAB. IMPORTANT MESSAGE FROM MEDICARE PROVIDED AND EXPLAINED. PT AND SPOUSE WOULD LIKE TO CONSIDER REHAB AT [facility]. CM WAITING PHYSICAL THERAPY EVALUATION AND INPATIENT REHAB PRESCREENING RESULTS FROM [facility] INPATIENT REHAB. Associate Juvenile Court Judge: Ambrosio Lynn DCPIA - Discharge Planning Initial Assessment Updated by [email or web address]: Ambrosio Lynn on 10/22/18 3:51 pm * Is the patient Alert and Oriented? Yes * How many steps to enter\exit or inside your home? * PCP DR. ZULETA * Pharmacy [facility] [address] * Preadmission Environment Home with Family * ADLs Independent * Equipment Walker * Other Equipment NO MEDICAL EQUIPMENT PROVIDER PREFERENCE * List name and contact numbers for known caregivers / representatives who currently or will assist patient after discharge: HUE BATISTA, SPOUSE, * Verbal permission to speak to the caregivers and representatives has been obtained from the patient. Yes * Community resources currently utilized None * Please name any agencies selected above. NONE * Additional services required to return to the preadmission environment? Yes * Can the patient safely return to the preadmission environment? Yes * Has this patient been hospitalized within the prior 30 days at any hospital? No Coverage Notice Reviewer: [id number] - Ambrosio Castañedawell Notice Issued Date-Time: 10/22/2018 15:40 Notice Type: IM Discharge Notice Notice Delivered To: Family Member Relationship to Patient: Spouse Plaster Patternmaker Name: HUE BATISTA Delivery Method: HAND - Hand Delivered Nadine Days: Prior Verbal Notification: Recipient Understood Notice: Yes Recipient Signature: Yes Med Rec Note Co-signed by Attending: Coverage Notice Comment: Last DP export: 10/22/18 2:54 p Patient Name: Tien BATISTA Page [phone] at 1603 All edits/amendments must be made on the electronic document DICTATION DATE: 10/22/181601 HEALTH CARE AIDE: KIMBERLY 10/22/18 160 RPT#: [id number] DC DATE: STATUS: ADM IN [facility] [address] [place] [address] END OF REPORT
--- NOTE | 2018-10-22 17:21 | NUR ---
DINNER AT BEDSIDE. AT BEDSIDE. DENIES NEEDS.
--- NOTE | 2018-10-22 18:14 | NUR ---
RESTING IN BED. DENIES PAIN. DENIES NEEDS.
--- NOTE | 2018-10-22 19:02 | NUR ---
PT IN BED RESTING QUIETLY. AT BEDSIDE.
[2018-10-22 20:28] VITALS: BP 141/66
[2018-10-23 00:14] VITALS: BP 151/77
[2018-10-23 04:46] VITALS: BP 148/81
[2018-10-23 06:10] LABS: BASOPHILS 0 % (0-2); EOSINOPHILS 0 % (0-7); HEMATOCRIT 28.4 % (42.0-54.0); IMMATURE GRANULOCYTES 0.4 % (0-5); LYMPHOCYTES 4.2 % (15-50); MCHC 31.7 g/dL (31.0-37.0); MCV 88.2 fL (80.0-100.0); MEAN PLATELET VOLUME 11.5 fL (7.4-10.4); MONOCYTES 5.7 % (2-11); NEUTROPHILS 89.7 % (40-80); PLATELET COUNT 162 10x3/uL (130-400); RBC 3.22 10x6/uL (4.20-6.10); RDW 15.4 % (11.5-14.5)
[2018-10-23 06:40] LABS: ALBUMIN 3.1 g/dL (3.4-5.0); ANION GAP 20.6 mmol/L (8-16); BILIRUBIN - TOTAL 0.42 mg/dL (0.2-1.3); CARBON DIOXIDE 24.7 mmol/L (21.0-32.0); CREATININE - SERUM 5.2 mg/dL (0.6-1.3); PHOSPHOROUS 6.2 mg/dL (2.5-4.9); POTASSIUM - SERUM 3.3 mmol/L (3.5-5.1); PROTEIN - SERUM 6.9 g/dL (6.4-8.2)
[2018-10-23 08:15] VITALS: BP 104/74
[2018-10-23 11:40] VITALS: BP 130/67
[2018-10-23 15:24] VITALS: BP 136/70
--- NOTE | 2018-10-23 16:27 | NUR ---
Rehab Note- Continue to follow at this time. The is having gross hematuria and requiring hitchcock irrigation d/t clots and causing urinary obstruction. Will continue to follow at this time. Thank you for this referral! Rae Keenan RN Clinical Liaision, [facility] Rehab
--- NOTE | 2018-10-23 19:28 | NUR ---
PT IN BED. AT BEDSIDE. PT DENIES NEEDS AT THIS TIME.
[2018-10-23 22:50] VITALS: BP 107/65
[2018-10-24 05:14] VITALS: BP 118/66
[2018-10-24 06:33] LABS: BASOPHILS 0.1 % (0-2); EOSINOPHILS 1.4 % (0-7); HEMATOCRIT 27.1 % (42.0-54.0); HEMOGLOBIN 8.7 g/dL (13.5-17.5); IMMATURE GRANULOCYTES 0.3 % (0-5); LYMPHOCYTES 8.3 % (15-50); MCH 28.3 pg (26.0-34.0); MCHC 32.1 g/dL (31.0-37.0); MCV 88.3 fL (80.0-100.0); MEAN PLATELET VOLUME 11.4 fL (7.4-10.4); MONOCYTES 10.6 % (2-11); NEUTROPHILS 79.3 % (40-80); PLATELET COUNT 167 10x3/uL (130-400); RBC 3.07 10x6/uL (4.20-6.10); RDW 15.7 % (11.5-14.5); WBC 10.4 10x3/uL (4.8-10.8)
[2018-10-24 06:52] LABS: ANION GAP 15.6 mmol/L (8-16); CALCIUM 10.3 mg/dL (8.5-10.1); CARBON DIOXIDE 26.5 mmol/L (21.0-32.0); CREATININE - SERUM 5.5 mg/dL (0.6-1.3); POTASSIUM - SERUM 3.1 mmol/L (3.5-5.1)
[2018-10-24 07:27] VITALS: BP 123/72
--- NOTE | 2018-10-24 07:32 | NUR ---
ROUNDING DONE WITH PATIENT NEEDING TO USE THE RESTROOM PAST ISBELL CATH REMOVAL. ASSISTED PATIENT TO RESTROOM WITH URINAL TO VOID, UNABLE TO GO. ISEBLL CATH WAS JUST REMOVED AT 0630. AT BEDSIDE. ON ROOM AIR. RIGHT WIRST PIV SEEN WITH SALINE LOCK. RESE. LEFT ARM WITH AVF, + BRUIT AND THRILL. ON EP, K+ IS 3.1, WILL COVER WITH ORAL SUPPLEMENTS.
--- NOTE | 2018-10-24 08:24 | NUR ---
PATIENT HAS USED URINAL TO VOID 100 CC.
[2018-10-24 11:10] VITALS: BP 123/68
--- NOTE | 2018-10-24 12:40 | NUR ---
RE-DRAW OF POTASSIUM WITH RESULTS OF 3.5. WOULD COVER WITH ADDITIONAL ORAL SUPPLEMENT BUT WAS STARTED ON ORAL TODAY.
--- NOTE | 2018-10-24 13:48 | NUR ---
BLADDER SCAN DONE ORDERED PER DR MCCORMACK. [address] MCCORMACK WANTS ME TO SCAN AGAIN AT [phone] THEN [address] JOEL.
--- NOTE | 2018-10-24 14:04 | NUR ---
Nutrition follow-up: Diet: Renal PO intake 75-100% of meals Labs reviewed Wt:210# RDN following.
[2018-10-24 15:22] VITALS: BP 135/62
--- NOTE | 2018-10-24 15:33 | NUR ---
ASSSITED PATIENT TO BATHROOM TO VOID AGAIN. POST VOID BLADDER SCAN SHOWS 33 ML.
--- NOTE | 2018-10-24 19:20 | NUR ---
PT SEEMS CONFUSED NOT FOLLOWING COMANDS WELL. LUNGS CLEAR BOWEL SOUNDS X4 AND NO BLADDER DISTENTION. BED IS LOW AND LOCKED IV PATENT AT 75/HR IS WITH PT AND DENIES NEEDS AT THIS TIME
[2018-10-24 20:00] VITALS: BP 135/75
--- NOTE | 2018-10-25 00:38 | NUR ---
ASSESTED TO STAND AND USE URINAL...PT WAS NOT ABLE TO FOLLOW COMANDS BUT SUCESSFULLY VOIDED 150 CC
[2018-10-25 04:30] VITALS: BP 122/69
--- NOTE | 2018-10-25 04:33 | NUR ---
I have reviewed this patient and I concur with the Shift Assessment completed by the Licensed Practical Nurse today this shift.
--- NOTE | 2018-10-25 07:33 | NUR ---
ROUNDING DONE WITH AT BEDSIDE. ISAÍAS MAT ALARM IS ON. PATIENT IS CONFUSED BUT ALERT. ON ROOM AIR. RIGHT WRIST PIV SEEN WITH D5W INFUSING AT 75 CC/HR. RESE. LEFT ARM WITH AVF, + BRUIT AND THRILL. ON EP, NO LAB VALUSE BACK YET. WILL MONITOR.
[2018-10-25 08:18] LABS: BASOPHILS 0.2 % (0-2); HEMATOCRIT 28.4 % (42.0-54.0); IMMATURE GRANULOCYTES 0.4 % (0-5); LYMPHOCYTES 7.5 % (15-50); MCHC 31.7 g/dL (31.0-37.0); MCV 88.5 fL (80.0-100.0); MEAN PLATELET VOLUME 10.8 fL (7.4-10.4); MONOCYTES 11.1 % (2-11); NEUTROPHILS 78.8 % (40-80); PLATELET COUNT 175 10x3/uL (130-400); RBC 3.21 10x6/uL (4.20-6.10); RDW 15.4 % (11.5-14.5)
[2018-10-25 08:30] VITALS: BP 143/78
[2018-10-25 08:38] LABS: ANION GAP 17.1 mmol/L (8-16); CALCIUM 9.8 mg/dL (8.5-10.1); CARBON DIOXIDE 24.3 mmol/L (21.0-32.0); CREATININE - SERUM 5.9 mg/dL (0.6-1.3); PHOSPHOROUS 6.3 mg/dL (2.5-4.9); POTASSIUM - SERUM 3.4 mmol/L (3.5-5.1)
--- NOTE | 2018-10-25 10:28 | NUR ---
DR MCCORMACK HERE TO SEE PATIENT AND . HE REQUESTS A BLADDER SCAN TO BE DONE. DONE WITH RESIDUAL OF 24 ML. AWAITING NEW ORDERS.
--- NOTE | 2018-10-25 11:18 | NUR ---
[address] WITH NO DIFFICULTY. RETURN OF 100 CC CLEAR YELLOW URINE.
--- NOTE | 2018-10-25 11:38 | NUR ---
LARGE BRUISE SEEN TO LEFT HIP AREA, THIS WAS ALSO THERE YESTERDAY DURING ASSESSMENT.
[2018-10-25 12:30] VITALS: BP 129/90
--- NOTE | 2018-10-25 13:51 | NUR ---
COMPLETE BATH AND LINEN CHANGE DONE WITH SHAVE. ISAÍAS MAT ALARM IS ON AND IN USE. AT BEDSIDE.
--- NOTE | 2018-10-25 14:07 | NUR ---
RESULTS OF POTASSIUM REDRAW IS 4.3. NO NEED FOR FURTHER COVER TODAY OF SUPPLEMENTS.
[2018-10-25 16:30] VITALS: BP 156/82
--- NOTE | 2018-10-25 19:25 | NUR ---
WAKE BUT CONFUSED ...NOT ANSWERING QUESTIONS PICKING SOME AT AIR WITH FINGERS... ABD DISTENDED BUT BOWEL SOUNDS X4 NO BLADDER DISTENSION...ISBELL IN PLACE TO GRAVITY ...BED IS LOW AND LOCKED FAMILY ARE PRESENT WITH PT AND ISAÍAS ALARM IS ON
[2018-10-25 20:08] VITALS: BP 131/72
--- NOTE | 2018-10-25 21:05 | NUR ---
I have reviewed this patient and I concur with the Shift Assessment completed by the Licensed Practical Nurse today this shift.
[2018-10-26 00:45] VITALS: BP 138/79
[2018-10-26 03:37] LABS: BASOPHILS 0.1 % (0-2); EOSINOPHILS 1.1 % (0-7); HEMOGLOBIN 8.9 g/dL (13.5-17.5); IMMATURE GRANULOCYTES 0.4 % (0-5); LYMPHOCYTES 6.1 % (15-50); MCHC 31.8 g/dL (31.0-37.0); MCV 88.1 fL (80.0-100.0); MEAN PLATELET VOLUME 10.8 fL (7.4-10.4); MONOCYTES 12.5 % (2-11); NEUTROPHILS 79.8 % (40-80); PLATELET COUNT 186 10x3/uL (130-400); RBC 3.18 10x6/uL (4.20-6.10); RDW 15.6 % (11.5-14.5); WBC 10.4 10x3/uL (4.8-10.8)
[2018-10-26 03:43] LABS: ANION GAP 18.2 mmol/L (8-16); CARBON DIOXIDE 23.2 mmol/L (21.0-32.0); POTASSIUM - SERUM 4.4 mmol/L (3.5-5.1)
[2018-10-26 03:49] VITALS: BP 146/76
--- NOTE | 2018-10-26 07:05 | NUR ---
REC'D PT LYING IN BED WITH AT BEDSIDE. PT IS CONTINOUSLY CONFUSED. PT IS BED BOUND AT THIS TIME. RESP EVEN AND UNLABORED LUNG SOUNDS COARSE BILATERAL. PT AWAKENS EASILY TO VERBAL STIMULI, AND DRIFTING QUICKLY OFF TO SLEEP. PT REPORTS PT MORE CONFUSED TODAY. PT INCONTINENT OF BOWEL AND HAS INDWELLING ISBELL CATH PATENT AND INTACT AT THIS TIME WITH CLEAR YELLOW URINE IN ISBELL BAG. SKIN PINK WARM AND DRY WITH GOOD TURGOR. WILL CONTINUE TO MONITOR
[2018-10-26 08:31] VITALS: BP 144/81
[2018-10-26 11:30] VITALS: BP 110/65
[2018-10-26 16:34] VITALS: BP 134/74
--- NOTE | 2018-10-26 18:25 | NUR ---
REPORTED PT DAUGHTER- MANDO HYLTON'S CONCERNS TO AT THIS TIME, PHONE NUMBER [phone] GIVEN TO HIM FOR HIM TO MAKE CONTACT WITH HER.
--- NOTE | 2018-10-26 18:55 | NUR ---
AWAKE WITH FAMILY PRESENT BED LOW AND LOCKED SRX2 AND CALL LIGHT IS IN PLACE LCTA IV TO RT FA PATENT INFUSINF AT 50/HR...BOWEL SOUNDS X4 AND ISBELL TO GRAVITY WITH LITTLE URIN PRESENT..BED ALARM FUNCTIONING
[2018-10-26 20:14] VITALS: BP 117/75
[2018-10-27 03:49] VITALS: BP 134/76
--- NOTE | 2018-10-27 04:26 | NUR ---
I have reviewed this patient and I concur with the Shift Assessment completed by the Licensed Practical Nurse today this shift.
[2018-10-27 04:45] LABS: BASOPHILS 0.1 % (0-2); EOSINOPHILS 1.2 % (0-7); HEMATOCRIT 28.2 % (42.0-54.0); HEMOGLOBIN 8.8 g/dL (13.5-17.5); IMMATURE GRANULOCYTES 0.4 % (0-5); LYMPHOCYTES 4.6 % (15-50); MCH 27.5 pg (26.0-34.0); MCHC 31.2 g/dL (31.0-37.0); MCV 88.1 fL (80.0-100.0); MEAN PLATELET VOLUME 10.8 fL (7.4-10.4); NEUTROPHILS 81.7 % (40-80); PLATELET COUNT 193 10x3/uL (130-400); RDW 15.6 % (11.5-14.5); WBC 10.6 10x3/uL (4.8-10.8)
[2018-10-27 05:00] LABS: ANION GAP 19.7 mmol/L (8-16); CALCIUM 10.1 mg/dL (8.5-10.1); CREATININE - SERUM 6.3 mg/dL (0.6-1.3); POTASSIUM - SERUM 4.7 mmol/L (3.5-5.1)
[2018-10-27 05:01] LABS: PHOSPHOROUS 8.1 mg/dL (2.5-4.9)
[2018-10-27 10:00] VITALS: BP 165/70
--- NOTE | 2018-10-27 14:00 | NUR ---
ALERT AND ORIENTED X4. REQUESTING CASE MANAGEMENT. NOTIFY ANISA WITH CASE MANAGEMENT PATIENT REQUEST. DENIES ANY FURTHER NEEDS. DENIES SOB OR PAIN. CONTINUE PLAN OF CARE AND SAFETY PRECAUTIONS.
--- NOTE | 2018-10-27 17:00 | NUR ---
CONFUSED. SPEECH GARBLED. SPOUSE AT BEDSIDE REQUESTING UPDATE ON WHEN DIALYSIS WILL BE. INFORM SPOUSE DIALYSIS NURSE IN ICU GIVING TREATMENT. AFTER TREATMENT COMPLETE NURSE WILL INITIATE DIALYSIS ON PATIENT. ISBELL DRAINING BY GRAVITY. DENIES ANY FURTHER NEEDS. CONTINUE PLAN OF CARE AND SAFETY PRECAUTIONS.
[2018-10-27 17:14] VITALS: BP 147/87
[2018-10-27 19:55] VITALS: BP 129/63
--- NOTE | 2018-10-27 20:00 | NUR ---
RECIEVED BEDSIDE REPORT. VSS, ALERT BUT CONFUSED. @ BESIDE. STATES DR. GARCIA WANTED PT TO HAVE DIALYSIS IN THE ROOM. DR. GARCIA STATES IT IS FINE TO HAVE DIALYSIS DONE IN DIALYSIS UNIT. PT CURRENTLY OUT FOR DIALYSIS. WILL CPOC.
[2018-10-27 23:49] VITALS: BP 127/88
[2018-10-28 03:43] VITALS: BP 139/72
[2018-10-28 05:56] LABS: BASOPHILS 0.2 % (0-2); EOSINOPHILS 1.3 % (0-7); HEMATOCRIT 28.3 % (42.0-54.0); IMMATURE GRANULOCYTES 0.4 % (0-5); MCH 27.9 pg (26.0-34.0); MCHC 31.8 g/dL (31.0-37.0); MCV 87.6 fL (80.0-100.0); MEAN PLATELET VOLUME 10.7 fL (7.4-10.4); MONOCYTES 5.7 % (2-11); NEUTROPHILS 85.4 % (40-80); PLATELET COUNT 197 10x3/uL (130-400); RBC 3.23 10x6/uL (4.20-6.10); RDW 15.6 % (11.5-14.5); WBC 10.2 10x3/uL (4.8-10.8)
[2018-10-28 07:38] VITALS: BP 138/74
[2018-10-28 07:54] LABS: ANION GAP 18.8 mmol/L (8-16); CALCIUM 9.5 mg/dL (8.5-10.1); CARBON DIOXIDE 23.3 mmol/L (21.0-32.0); CREATININE - SERUM 4.8 mg/dL (0.6-1.3); POTASSIUM - SERUM 4.1 mmol/L (3.5-5.1)
[2018-10-28 11:56] VITALS: BP 116/67
--- NOTE | 2018-10-28 15:30 | NUR ---
TAKEN TO DIALYSIS VIA BED. CONTINUE PLAN OF CARE AND SAFETY PRECAUTIONS.
--- NOTE | 2018-10-28 19:10 | NUR ---
PT AROUSES EASILY LUNGS CLEAR AND SKIN WARM AND DRY BANDAGE COVERS FISTULA BED IS LOW AND LOCKED SR X2 STAYING AT BED SIDE ISBELL TO GRAVITY.
[2018-10-28 20:00] VITALS: BP 116/60
[2018-10-29] VITALS: BP 136/73
--- NOTE | 2018-10-29 03:34 | NUR ---
REPORTED TO ME SPO2 84...I CHECKED ANOTHER FINGER AND IT WAS 90...RESP A BIT SHALLOW BUT NOT USEING ACCESSORY MUSCLES AIR FLOW IN LUNGS CLEAR 02 AT 2L APPLIED AND SPO2 UP TO 95%..SKIN WARM AND DRY
[2018-10-29 04:00] VITALS: BP 123/72
[2018-10-29 06:36] LABS: ALBUMIN 2.6 g/dL (3.4-5.0); ANION GAP 16.6 mmol/L (8-16); BILIRUBIN - TOTAL 0.44 mg/dL (0.2-1.3); CALCIUM 9.3 mg/dL (8.5-10.1); CARBON DIOXIDE 26.9 mmol/L (21.0-32.0); CREATININE - SERUM 4.1 mg/dL (0.6-1.3); PHOSPHOROUS 6.7 mg/dL (2.5-4.9); POTASSIUM - SERUM 4.5 mmol/L (3.5-5.1); PROTEIN - SERUM 6.7 g/dL (6.4-8.2)
[2018-10-29 06:58] LABS: HEMATOCRIT 27.7 % (42.0-54.0); HEMOGLOBIN 9.2 g/dL (13.5-17.5); LYMPHOCYTES 6.6 % (15-50); MCH 29.8 pg (26.0-34.0); MCHC 33.2 g/dL (31.0-37.0); NEUTROPHILS 78.4 % (40-80); PLATELET COUNT 193 10x3/uL (130-400); RBC 3.09 10x6/uL (4.20-6.10); RDW 15.7 % (11.5-14.5); WBC 9.2 10x3/uL (4.8-10.8)
[2018-10-29 07:09] LABS: MCV 89.6 fL (80.0-100.0)
[2018-10-29 07:54] VITALS: BP 132/64
[2018-10-29 11:55] VITALS: BP 113/62
--- NOTE | 2018-10-29 16:47 | NUR ---
LETHARGIC. AROUSES TO DEEP STIMULI. TAKEN TO DIALYSIS VIA BED. CONTINUE PLAN OF CARE AND SAFETY PRECAUTIONS.
--- NOTE | 2018-10-29 19:25 | NUR ---
BROUGHT UP FROM DIALYSIS PT IS AWAKE SPEAK IS NON COHERANT. SKIN WARM AND DRY LCTA IV SL BANDAGE TI FISTULA INTACT TO ROOM IS THERE AND CALL LIGHT IS IN PLACE
[2018-10-29 20:00] VITALS: BP 118/56
[2018-10-30] VITALS: BP 138/75
--- NOTE | 2018-10-30 02:38 | NUR ---
I have reviewed this patient and I concur with the Shift Assessment completed by the Licensed Practical Nurse today this shift.
[2018-10-30 04:00] VITALS: BP 144/69
[2018-10-30 05:21] LABS: BASOPHILS 0.1 % (0-2); EOSINOPHILS 0.7 % (0-7); HEMATOCRIT 27.5 % (42.0-54.0); HEMOGLOBIN 8.9 g/dL (13.5-17.5); MCH 28.4 pg (26.0-34.0); MCHC 32.4 g/dL (31.0-37.0); MCV 87.9 fL (80.0-100.0); MEAN PLATELET VOLUME 10.8 fL (7.4-10.4); MONOCYTES 13.6 % (2-11); NEUTROPHILS 78.6 % (40-80); PLATELET COUNT 203 10x3/uL (130-400); RBC 3.13 10x6/uL (4.20-6.10); RDW 15.4 % (11.5-14.5); WBC 9.7 10x3/uL (4.8-10.8)
[2018-10-30 05:54] LABS: ALBUMIN 2.7 g/dL (3.4-5.0); ANION GAP 12.6 mmol/L (8-16); BILIRUBIN - TOTAL 0.47 mg/dL (0.2-1.3); CALCIUM 9.4 mg/dL (8.5-10.1); CARBON DIOXIDE 27.6 mmol/L (21.0-32.0); CREATININE - SERUM 3.9 mg/dL (0.6-1.3); POTASSIUM - SERUM 4.2 mmol/L (3.5-5.1); PROTEIN - SERUM 6.6 g/dL (6.4-8.2)
--- NOTE | 2018-10-30 07:52 | NUR ---
REPORT RECEIVED. WILL CONTINUE WITH POC. PT CURRENTLY LYING SEMI FOWLERS. CALL LIGHT W/I REACH. PT IS RESTING AT THIS TIME. FAMILY AT BEDSIDE. RR EVEN AND UNLABORED ON 2L 02. D5NS INFUSING @50ML/HR VIA R.FOR PIV. NO S/S OF DISTRESS NOTED. WILL CTM.
[2018-10-30 07:55] LABS: APPEARANCE SL CLDY (CLEAR); COLOR YELLOW (YELLOW); GLUCOSE NEGATIVE (NEGATIVE); KETONE NEGATIVE (NEGATIVE); NITRITE NEGATIVE (NEGATIVE); PROTEIN 3+ mg/dL (NEGATIVE); SPECIFIC GRAVITY 1.025 (1.005-1.020); UROBILINOGEN NORMAL (NORMAL)
[2018-10-30 07:56] LABS: BACTERIA MODERATE /hpf (NONE SEEN); BILIRUBIN NEGATIVE (NEGATIVE); EPITHELIAL CELLS 0-5 /hpf (0-5); GRANULAR CAST RARE /lpf (NONE SEEN); MUCUS <1+ /lpf (NONE SEEN); WHITE CELLS - URINE 0-5 /hpf (0-5)
[2018-10-30 08:07] VITALS: BP 145/77
[2018-10-30 11:59] VITALS: BP 126/65
--- NOTE | 2018-10-30 13:41 | NUR ---
Nutrition follow-up: Visited with pts ; pt sound asleep. reports she has been trying to force feed pt because he is just not eating. Noted speech path recommend puree with honey thick liquids. Pt still with very poor po intake. Pt in dialysis at this time. Labs reviewed Wt: 187# May need to consider nutrition support (NGT vs PEG tube placement) and TF started. Nepro at goal rate of 50 ml/hr RDN following.
--- NOTE | 2018-10-30 14:08 | NUR ---
I have reviewed this patient and I concur with the Shift Assessment completed by the Licensed Practical Nurse today this shift.
--- NOTE | 2018-10-30 19:28 | NUR ---
RPEORT RECIEVED AND ROUNDING COMPLETE. PT LAYING IN BED, AND SON AT BEDSIDE. PT HAS RIGHT FOREARM PIV RUNNING, NO S/SX OF INFILTRATION OR INFECTION. PT IS WEARING NC AND RECEIVING O2 AT 2L. PT AND FAMILY STATES NO NEEDS AT THIS TIME. CALL LIGHT WITHIN REACH AND BED IN LOWEST POSITION.
[2018-10-30 20:00] VITALS: BP 127/71
[2018-10-31] VITALS: BP 148/68
--- NOTE | 2018-10-31 02:40 | NUR ---
I have reviewed this patient and I concur with the Shift Assessment completed by the Licensed Practical Nurse today this shift.
[2018-10-31 04:00] VITALS: BP 132/72
--- NOTE | 2018-10-31 04:20 | NUR ---
PT LAYING IN BED EYES CLOSED BREATHING EVEN AND UNLABORED, NO S/SX OF DISTRESS. AT BED SIDE. CALL LIGHT WITHIN REACH BED IN LOWEST POSITION AND LOCKED.
[2018-10-31 05:22] LABS: BASOPHILS 0.2 % (0-2); EOSINOPHILS 0.4 % (0-7); HEMATOCRIT 29.6 % (42.0-54.0); HEMOGLOBIN 9.2 g/dL (13.5-17.5); IMMATURE GRANULOCYTES 0.9 % (0-5); LYMPHOCYTES 4.8 % (15-50); MCH 27.5 pg (26.0-34.0); MCHC 31.1 g/dL (31.0-37.0); MCV 88.6 fL (80.0-100.0); MEAN PLATELET VOLUME 10.2 fL (7.4-10.4); MONOCYTES 12.6 % (2-11); NEUTROPHILS 81.1 % (40-80); PLATELET COUNT 201 10x3/uL (130-400); RBC 3.34 10x6/uL (4.20-6.10); RDW 15.4 % (11.5-14.5)
[2018-10-31 05:49] LABS: ALBUMIN 2.8 g/dL (3.4-5.0); ANION GAP 15.4 mmol/L (8-16); BILIRUBIN - TOTAL 0.68 mg/dL (0.2-1.3); CALCIUM 9.8 mg/dL (8.5-10.1); CARBON DIOXIDE 27.2 mmol/L (21.0-32.0); CREATININE - SERUM 3.8 mg/dL (0.6-1.3); POTASSIUM - SERUM 4.6 mmol/L (3.5-5.1)
[2018-10-31 07:34] VITALS: BP 124/69
--- NOTE | 2018-10-31 11:14 | NUR ---
Rehab Note- The patient is too low at this time for acute inpatient rehab, unable to tolerate sitting at side of bed due to being too lethargic. The patient has to be able to tolerate the required 3hrs/day of therapy per Medicare guidelines. Thank you for this referral! Rae Keenan RN CLinical Liaison, [facility] Rehab
[2018-10-31 11:52] VITALS: BP 144/67
[2018-10-31 16:22] VITALS: BP 136/68
--- NOTE | 2018-10-31 19:17 | NUR ---
PT IN BED RESTING. SON AT BEDSIDE. NO ACUTE DISTRESS NOTED AT THIS TIME.
[2018-10-31 20:00] VITALS: BP 106/65
[2018-11-01] VITALS: BP 120/71
[2018-11-01 04:00] VITALS: BP 116/59
[2018-11-01 05:40] LABS: BASOPHILS 0.1 % (0-2); EOSINOPHILS 0.3 % (0-7); HEMATOCRIT 29.7 % (42.0-54.0); HEMOGLOBIN 9.2 g/dL (13.5-17.5); IMMATURE GRANULOCYTES 0.7 % (0-5); LYMPHOCYTES 5.2 % (15-50); MCH 27.5 pg (26.0-34.0); MCV 88.7 fL (80.0-100.0); MEAN PLATELET VOLUME 10.8 fL (7.4-10.4); NEUTROPHILS 82.7 % (40-80); PLATELET COUNT 226 10x3/uL (130-400); RBC 3.35 10x6/uL (4.20-6.10); RDW 15.5 % (11.5-14.5); WBC 13.1 10x3/uL (4.8-10.8)
[2018-11-01 05:56] LABS: CARBON DIOXIDE 25.8 mmol/L (21.0-32.0); POTASSIUM - SERUM 4.8 mmol/L (3.5-5.1)
[2018-11-01 06:13] LABS: ALBUMIN 2.8 g/dL (3.4-5.0); BILIRUBIN - TOTAL 0.68 mg/dL (0.2-1.3); CALCIUM 9.8 mg/dL (8.5-10.1); CREATININE - SERUM 4.8 mg/dL (0.6-1.3); PROTEIN - SERUM 6.8 g/dL (6.4-8.2)
--- NOTE | 2018-11-01 07:45 | NUR ---
REPORT RECEIVED. WILL CONTINUE WITH POC. PT CURRENTLY LYING SEMI FOWLERS. CALL LIGHT W/I REACH. FAMILY AT BEDSIDE. RR EVEN AND UNLABORED ON 2L 02. D5NS INFUSING @25ML/HR VIA R.FOR PIV. NO S/S OF DISTRESS NOTED. PT DENIES ANY NEEDS. WILL CTM.
[2018-11-01 08:12] VITALS: BP 122/50
--- NOTE | 2018-11-01 11:31 | NUR ---
CALLED AND SPOKE WITH HEAVEN FROM DIALYSIS WHO STATED THAT SHE DID USE THE UPPER LEFT ARM FOR AN ACCESS. PT WAS CONCERENED BECAUSE THERE WAS A BANDAGE ON HIS UPPER LEFT ARM. HEAVEN STATED THAT THE FISUTLA IN THE PT LOWER LEFT ARM WAS RED AND SWOLLEN THEREFORE EXPLAINING WHY THEY WENT SOMEWHERE ELSE. REASSURED THE FAMILY THAT IT WAS NORMAL FOR A PT TO BE AT A HIGHER RISK FOR BLEEDING EVEN THOUGH THE UPPER LEFT ARM WAS C/D/I WITH NO S/S OF HEMATOMA OR OTHER ISSUE. WILL CTM.
--- NOTE | 2018-11-01 11:49 | NUR ---
PT TAKEN TO DIALYSIS. WILL CTM.
[2018-11-01 12:12] VITALS: BP 122/67
--- NOTE | 2018-11-01 12:12 | MORECARE ---
CASE MANAGEMENT DISCHARGE SUMMARY PATIENT: Tien BATISTA UNIT: [id number] ADM DATE: 10/18/18 AGE: 78 : 38 SEX: M ROOM/BED: D.2131 AUTHOR: NISHANT VICK PHYSICIAN: REFERRING PHYSICIAN: PAO PATEL MD DATE OF SERVICE: 11/01/18 Discharge Plan Patient Name: Tien BATISTA [facility] [facility] 1940 Planned Disposition: Inpatient Rehab Anticipated Discharge Date: 11/01/18 Discharge Date: Expected LOS: 14 Initial Reviewer: [id number] Initial Review Date: 10/22/2018 Generated: 11/01/18 1:12 pm Comments DCP- Discharge Planning Updated by [email or web address]: Ambrosio Lynn on 11/01/18 11:[address] Patient Name: Tien BATISTA Encounter No: [id number] : 1940 Primary Insurance: MEDICARE A & B Anticipated DC Date: 11-01-2018 Planned Disposition: Inpatient Rehab External Planned Provider: [facility] DCP follow-up note: CM MET WITH PT AND SPOUSE IN ROOM TO DISCUSS DISCHARGE NEEDS AND PLANNING. CM REVIEWED THERAPY NOTES AND DISCUSSED ORDER FOR OUTPATIENT DIALYSIS CLINIC ARRANGMENT AND NEED FOR [facility]. PT'S SPOUSE IS HOPEFUL THAT SINCE THEY WILL BE DOING DIALYSIS 3 DAYS WEEKLY INSTEAD OF DAILY, AND THEY HAVE SLOWED ON THE NIGHTTIME MEDICATION, THAT PT WILL BE MORE ABLE TO PARTICIPATE IN THERAPY AND CAN GO TO INPATIENT REHAB AT [place]. CM MENTIONED [facility] SECOND OPTION, PT'S SPOUSE WANTS PT TO BE CONSIDERED FOR INPATIENT REHAB AT [place]. CM SPOKE TO JACY RASCON WHO ADVISED THAT IN THE MORNING MEETING, REHAB MENTIONED THEY ARE STILL EVALUATING PT FOR REHAB ADMISSION. CM WAITING MEDICAL STABILITY, OUTPATIENT DIALYSIS UNIT ARRANGEMENT WELL ADMISSION DETERMINATION FROM [facility]. GEORGE Hensley DCP- Discharge Planning Updated by [id number]: Ambrosio Lynn on 10/22/18 2:[address] Patient Name: Tien BATISTA Admission Status: ER Accout number: [id number] Admission Date: 10-18-2018 : 1940 Admission Diagnosis: Attending: PABLO PATEL Current LOS: 4 Anticipated DC Date: 10-23-2018 Planned Disposition: Inpatient Rehab Primary Insurance: MEDICARE A & B PLANNED EXTERNAL PROVIDER: [facility] Discharge Planning Comments: CM RECEIVED ORDER FOR INPATIENT REHAB PRESCREENING. CM MET WITH PT AND SPOUSE IN ROOM TO DISCUSS DISCHARGE PLANNING AND NEEDS. Tien BATISTA provided verbal consent to discuss current and ongoing needs with/in the presence of: SPOUSE, HUE. PT REPORTS LIVING AT HOME INDEPENDENTLY WITH SPOUSE; PT REPORTS SHE HELPS PT WASH HIS BACK AT HOME, PT HAS OTHERWISE BEEN INDEPENDENT UNTIL GETTING SICK. PT HAS WALKER WITH NO MEDICAL EQUIPMENT PROVIDER PREFERNECE. PT HAS NO OUTSIDE SERVICES ASSISTING IN THE HOME. CM DISCUSSED AVAILABILITY OF HOME HEALTH, REHAB SERVICES AND MEDICAL EQUIPMENT. PT AND SPOUSE WOULD CONSIDER REHAB AT [place], NO WHERE ELSE, WITH PLAN TO DISCHARGE HOME WITH SPOUSE AFTER REHAB. IMPORTANT MESSAGE FROM MEDICARE PROVIDED AND EXPLAINED. PT AND SPOUSE WOULD LIKE TO CONSIDER REHAB AT [facility]. CM WAITING PHYSICAL THERAPY EVALUATION AND INPATIENT REHAB PRESCREENING RESULTS FROM [facility] INPAT[facility]. Gas Line Servicer: Ambrosio Lynn DCPIA - Discharge Planning Initial Assessment Updated by [id number]: Ambrosio Lynn on 10/22/18 3:51 pm * Is the patient Alert and Oriented? Yes * How many steps to enter\exit or inside your home? * PCP DR. ZULETA * Pharmacy [facility] [address] * Preadmission Environment Home with Family * ADLs Independent * Equipment Walker * Other Equipment NO MEDICAL EQUIPMENT PROVIDER PREFERENCE * List name and contact numbers for known caregivers / representatives who currently or will assist patient after discharge: HUE BATISTA, SPOUSE, * Verbal permission to speak to the caregivers and representatives has been obtained from the patient. Yes * Community resources currently utilized None * Please name any agencies selected above. NONE * Additional services required to return to the preadmission environment? Yes * Can the patient safely return to the preadmission environment? Yes * Has this patient been hospitalized within the prior 30 days at any hospital? No Coverage Notice Reviewer: [id number] - Ambrosio Lynn Notice Issued Date-Time: 10/22/2018 15:40 Notice Type: IM Discharge Notice Notice Delivered To: Family Member Relationship to Patient: Spouse Program Services Assistant Name: HUE BATISTA Delivery Method: HAND - Hand Delivered Nadine Days: Prior Verbal Notification: Recipient Understood Notice: Yes Recipient Signature: Yes Med Rec Note Co-signed by Attending: Coverage Notice Comment: Last DP export: 10/22/18 3:03 p Patient Name: Tien BATISTA Page [id number] at 1212 All edits/amendments must be made on the electronic document DICTATION DATE: 11/01/18 121 HOSPITAL ADMISSIONS OFFICER: KIMBERLY 11/01/18 1211 RPT#: [id number] DC DATE: STATUS: ADM IN [facility] [address] [place] [address] END OF REPORT
--- NOTE | 2018-11-01 12:21 | MORECARE ---
CASE MANAGEMENT DISCHARGE SUMMARY PATIENT: Tien BATISTA UNIT: [id number] ADM DATE: 10/18/18 AGE: 78 : 38 SEX: M ROOM/BED: D.2131 AUTHOR: NISHANT VICK PHYSICIAN: REFERRING PHYSICIAN: PAO PATEL MD DATE OF SERVICE: 11/01/18 Discharge Plan Patient Name: Tien BATISTA [facility] [facility] 1940 Planned Disposition: Inpatient Rehab Anticipated Discharge Date: 11/01/18 Discharge Date: Expected LOS: 14 Initial Reviewer: [id number] Initial Review Date: 10/22/2018 Generated: 11/01/18 1:21 pm Comments DCP- Discharge Planning Updated by [email or web address]: Ambrosio Lynn on 11/01/18 11:[address] Patient Name: Tien BATISTA Encounter No: [id number] : 1940 Primary Insurance: MEDICARE A & B Anticipated DC Date: 11-01-2018 Planned Disposition: Inpatient Rehab External Planned Provider: [facility] DCP follow-up note: CM MET WITH PT AND SPOUSE IN ROOM TO DISCUSS DISCHARGE NEEDS AND PLANNING. CM REVIEWED THERAPY NOTES AND DISCUSSED ORDER FOR OUTPATIENT DIALYSIS CLINIC ARRANGMENT AND NEED FOR [facility] D[facility]. PT'S SPOUSE IS HOPEFUL THAT SINCE THEY WILL BE DOING DIALYSIS 3 DAYS WEEKLY INSTEAD OF DAILY, AND THEY HAVE SLOWED ON THE NIGHTTIME MEDICATION, THAT PT WILL BE MORE ABLE TO PARTICIPATE IN THERAPY AND CAN GO TO INPATIENT REHAB AT [place]. CM MENTIONED [facility] FACILITY REHAB SECOND OPTION, PT'S SPOUSE WANTS PT TO BE CONSIDERED FOR INPATIENT REHAB AT [place]. CM SPOKE TO RN ALE RASCON WHO ADVISED THAT IN THE MORNING MEETING, REHAB MENTIONED THEY ARE STILL EVALUATING PT FOR REHAB ADMISSION. CM LEFT MESSAGE FOR ESTHELA OF PATIENT PATHWAYS, NOTIFYING OF ORDER FOR OUTPATIENT DIALYSIS ARRANGEMENT CLINIC. CM WAITING MEDICAL STABILITY, OUTPATIENT DIALYSIS UNIT ARRANGEMENT WELL ADMISSION DETERMINATION FROM [facility]. Ambrosio Lynn CASE MANAGEMENT DCP- Discharge Planning Updated by [id number]: Ambrosio Lynn on 10/22/18 2:[address] Patient Name: Tien BATISTA Admission Status: ER Accout number: [id number] Admission Date: 10-18-2018 : 1940 Admission Diagnosis: Attending: PABLO PATEL Current LOS: 4 Anticipated DC Date: 10-23-2018 Planned Disposition: Inpatient Rehab Primary Insurance: MEDICARE A & B PLANNED EXTERNAL PROVIDER: [facility] Discharge Planning Comments: CM RECEIVED ORDER FOR INPATIENT REHAB PRESCREENING. CM MET WITH PT AND SPOUSE IN ROOM TO DISCUSS DISCHARGE PLANNING AND NEEDS. Tien BATISTA provided verbal consent to discuss current and ongoing needs with/in the presence of: SPOUSE, HUE. PT REPORTS LIVING AT HOME INDEPENDENTLY WITH SPOUSE; PT REPORTS SHE HELPS PT WASH HIS BACK AT HOME, PT HAS OTHERWISE BEEN INDEPENDENT UNTIL GETTING SICK. PT HAS WALKER WITH NO MEDICAL EQUIPMENT PROVIDER PREFERNECE. PT HAS NO OUTSIDE SERVICES ASSISTING IN THE HOME. CM DISCUSSED AVAILABILITY OF HOME HEALTH, REHAB SERVICES AND MEDICAL EQUIPMENT. PT AND SPOUSE WOULD CONSIDER REHAB AT [place], NO WHERE ELSE, WITH PLAN TO DISCHARGE HOME WITH SPOUSE AFTER REHAB. IMPORTANT MESSAGE FROM MEDICARE PROVIDED AND EXPLAINED. PT AND SPOUSE WOULD LIKE TO CONSIDER REHAB AT [facility]. CM WAITING PHYSICAL THERAPY EVALUATION AND INPATIENT REHAB PRESCREENING RESULTS FROM [facility]. Catalyst Supervisor: Ambrosio Lynn DCPIA - Discharge Planning Initial Assessment Updated by [id number]: Ambrosio Lynn on 10/22/18 3:51 pm * Is the patient Alert and Oriented? Yes * How many steps to enter\exit or inside your home? * PCP DR. ZULETA * Pharmacy [facility] [address] * Preadmission Environment Home with Family * ADLs Independent * Equipment Walker * Other Equipment NO MEDICAL EQUIPMENT PROVIDER PREFERENCE * List name and contact numbers for known caregivers / representatives who currently or will assist patient after discharge: HUE BATISTA, SPOUSE, * Verbal permission to speak to the caregivers and representatives has been obtained from the patient. Yes * Community resources currently utilized None * Please name any agencies selected above. NONE * Additional services required to return to the preadmission environment? Yes * Can the patient safely return to the preadmission environment? Yes * Has this patient been hospitalized within the prior 30 days at any hospital? No Coverage Notice Reviewer: [id number] - Ambrosio Lynn Notice Issued Date-Time: 10/22/2018 15:40 Notice Type: IM Discharge Notice Notice Delivered To: Family Member Relationship to Patient: Spouse President Ceo & Founder Name: HUE BATISTA Delivery Method: HAND - Hand Delivered Nadine Days: Prior Verbal Notification: Recipient Understood Notice: Yes Recipient Signature: Yes Med Rec Note Co-signed by Attending: Coverage Notice Comment: Last DP export: 11/01/18 11:12 a Patient Name: Tien BATISTA Page [id number] at 1221 All edits/amendments must be made on the electronic document DICTATION DATE: 11/01/18 122 [facility] DRIVER: KIMBERLY 11/01/18 1220 RPT#: [id number] DC DATE: STATUS: ADM IN [facility] [address] [place] [address] END OF REPORT
--- NOTE | 2018-11-01 13:46 | NUR ---
PT BROUGHT BACK FROM DIALYSIS. DIALYSIS NURSE STATED THAT HE BECAME COMBATIVE WHEN TRYING TO GAIN ACCESS AND WOULD JERK HIS ARM AWAY IN SPITE OF TRYING TO CALM HIM DOWN. PT IS BACK IN THE ROOM. LYING SEMI FOWLERS. CALL LIGHT W/I REACH. WILL CTM.
--- NOTE | 2018-11-01 15:24 | NUR ---
I have reviewed this patient and I concur with the Shift Assessment completed by the Licensed Practical Nurse today this shift.
[2018-11-01 16:30] VITALS: BP 115/64
--- NOTE | 2018-11-01 19:18 | NUR ---
EVENING ROUNDS MADE. PT LAYING IN BED RESTING COMFORTABLY. FAMILY AT BEDSIDE. BREATHING SHALLOW, O2 2L VIA NC. FAMILY DENIES CONCERNS AT THIS TIME. FALL PRECAUTIONS IN PLACE. WILL CTM.
[2018-11-01 20:00] VITALS: BP 124/63
--- NOTE | 2018-11-02 01:03 | NUR ---
DAUGHTER TO NURSES STATION. STATED THAT PT WONT LEAVE NC IN NOSE. DAUGHTER STATES " I WANTED TO LET YOU KNOW BECAUSE I DIDNT KNOW IF IT WAS NECESSARY FOR HIM TO KEEP IT ON" AFTER INFORMING HER THAT IT WAS VERY CRITICAL FOR PT TO KEEP NC ON, CHECK O2 SAT, SAT 85%. ATTEMPTED TO GET PT TO KEEP NC IN PLACE. PT SWUNG ARMS SEVERAL TIMES AND STATED "STOP, IT" AFTER SEVERAL ATTEMPS TO GET PT TO WEAR OXYGEN, INFORMED MY CHARGE NURSE MIRLANDE LOUIE. MIRLANDE STATED TO LET RESPIRATORY KNOW. RESPIRATORY STATED THEY COULDNT DO ANYTHING AT THIS TIME DUE TO PT WAS ONLY ON 2L VIA NC, AND TO JUST TRY TO GET HIM TO WEAR HIS NC. DAUGHTER BACK AT NURSES STATION AND STATED "I HAVE NEVER SEEN HIM LIKE THIS, IS THERE ANYTHING YOU CAN GIVE HIM" I INFORMED DAUGHTER "YOU DIDNT WANT HIM TO HAVE GEODON" AFTER DISCUSSING WITH MY CHARGE NURSE MIRLANDE, PT DAUGHTER STATES SHE WAS OKAY WITH PT HAVE HALF DOSE OF GEODON. UPON ENTERING PT ROOM, ASSISTED BY MARINA LOUIE, PT AGREED TO PUT NC BACK IN NOSE BEFORE TAKING SHOT OF GEODON. PT 02 BACK UP TO 92% AT AFTER REAPPLYING OXYGEN. PT AND FAMILY DENY FURTHER CONCERNS AT THIS TIME. FALL PRECAUTIONS IN PLACE. YELLOW GOWN ON. NON SKID SOCKS ON. BED LOWERED AND LOCKED. CL IN REACH. WILL CTM.
--- NOTE | 2018-11-02 03:22 | NUR ---
I have reviewed this patient and I concur with the Shift Assessment completed by the Licensed Practical Nurse today this shift.
--- NOTE | 2018-11-02 05:07 | NUR ---
PT NOTED TO HAVE NC OFF UPON ENTERING RM. DAUGHTER AT BEDSIDE STATES "HE JUST TOOK THAT OFF" PT WILLINGLY PUT NC BACK ON, SPO2 WNL. DENIES FURTHER CONCERNS AT THIS TIME. FALL PRECAUTIONS IN PLACE. WILL CTM.
[2018-11-02 06:00] VITALS: BP 132/70
--- NOTE | 2018-11-02 07:05 | NUR ---
LYING IN BED. RESP EVEN WITHOUT LABOR O2 ON DAUGHTER AT BEDSIDE STATES HE HAD A ROUGH NIGHT. SAID HE WAS RESTLESS AND TALKING AND MOVING ALL NIGHT LONG. RESPONDS TO VERBAL STIMULI BUT IS GROGGY. CL IN REACH.
[2018-11-02 08:10] VITALS: BP 132/71
[2018-11-02 08:56] LABS: BASOPHILS 0.1 % (0-2); EOSINOPHILS 0.1 % (0-7); HEMATOCRIT 29.3 % (42.0-54.0); HEMOGLOBIN 9.1 g/dL (13.5-17.5); IMMATURE GRANULOCYTES 0.4 % (0-5); LYMPHOCYTES 5.9 % (15-50); MCH 27.8 pg (26.0-34.0); MCHC 31.1 g/dL (31.0-37.0); MCV 89.6 fL (80.0-100.0); MEAN PLATELET VOLUME 11.4 fL (7.4-10.4); MONOCYTES 6.6 % (2-11); NEUTROPHILS 86.9 % (40-80); PLATELET COUNT 219 10x3/uL (130-400); RBC 3.27 10x6/uL (4.20-6.10); RDW 15.5 % (11.5-14.5); WBC 14.2 10x3/uL (4.8-10.8)
[2018-11-02 09:13] LABS: ALBUMIN 2.7 g/dL (3.4-5.0); ANION GAP 16.7 mmol/L (8-16); BILIRUBIN - TOTAL 0.78 mg/dL (0.2-1.3); CALCIUM 9.6 mg/dL (8.5-10.1); CARBON DIOXIDE 25.2 mmol/L (21.0-32.0); CREATININE - SERUM 5.3 mg/dL (0.6-1.3); POTASSIUM - SERUM 4.9 mmol/L (3.5-5.1); PROTEIN - SERUM 6.6 g/dL (6.4-8.2)
--- NOTE | 2018-11-02 09:20 | NUR ---
PO MEDS GIVEN IN PUDDING WITH THICK LIQUIDS ALANA WELL. SWALLOW ON COMMAND. MEPILEX DRESSING APPLIED TO HIS COCCYX AT THIS TIME. T/R Q 2 HOURS AND PRN. FAMILY AT BEDSIDE.
--- NOTE | 2018-11-02 11:00 | NUR ---
TRANSPORTED TO DIALYSIS PER TWO STAFF MEMBERS. HE WAS AWAKING UP MORE AND OPENING HIS EYES. GEODON SHOT WAS NOT GIVEN DUE TO FAMILY AT BEDSIDE DID NOT WANT IT GIVEN HOWEVER THEY WANTED HIS DIALYSIS DONE AND UNDERSTOOD THEY WERE UNABLE TO COMPLETE IT YESTERDAY DUE TO HIS BEHAVIORS. WILL GIVE IT IF DIALYSIS CALLS AND IS UNABLE TO DO DIALYSIS.
--- NOTE | 2018-11-02 14:10 | NUR ---
RETURN FROM DIALYSIS WITH AT BEDSIDE. HE IS AWAKE BUT COOPERATIVE. NOTED TO BE HOARSE. TAKING THICK LIQUIDS WELL. EATING HIS LUNCH WITH ASSIST. NO DISTRESS NOTED. NO BLEEDING NOTED.
[2018-11-02 16:08] VITALS: BP 130/69
--- NOTE | 2018-11-02 19:44 | NUR ---
PT IN BED RESTING QUIELY WITH EYES CLOSED. AND DAUGHTER AT BEDSIDE.
[2018-11-02 20:10] VITALS: BP 101/56
[2018-11-02 23:41] VITALS: BP 116/57
[2018-11-03 03:43] VITALS: BP 134/69
[2018-11-03 06:40] LABS: BASOPHILS 0.2 % (0-2); EOSINOPHILS 0.7 % (0-7); HEMATOCRIT 28.2 % (42.0-54.0); HEMOGLOBIN 8.8 g/dL (13.5-17.5); IMMATURE GRANULOCYTES 0.5 % (0-5); LYMPHOCYTES 6.7 % (15-50); MCH 27.4 pg (26.0-34.0); MCHC 31.2 g/dL (31.0-37.0); MCV 87.9 fL (80.0-100.0); MEAN PLATELET VOLUME 10.9 fL (7.4-10.4); MONOCYTES 10.7 % (2-11); NEUTROPHILS 81.2 % (40-80); PLATELET COUNT 193 10x3/uL (130-400); RBC 3.21 10x6/uL (4.20-6.10); RDW 15.1 % (11.5-14.5); WBC 11.9 10x3/uL (4.8-10.8)
[2018-11-03 06:52] LABS: ALBUMIN 2.6 g/dL (3.4-5.0); ANION GAP 15.8 mmol/L (8-16); BILIRUBIN - TOTAL 0.87 mg/dL (0.2-1.3); CALCIUM 9.1 mg/dL (8.5-10.1); CARBON DIOXIDE 26.7 mmol/L (21.0-32.0); CREATININE - SERUM 4.7 mg/dL (0.6-1.3); POTASSIUM - SERUM 4.5 mmol/L (3.5-5.1); PROTEIN - SERUM 6.5 g/dL (6.4-8.2); VANCOMYCIN - RANDOM 14.4 ug/mL (10.0-20.0)
[2018-11-03 08:28] VITALS: BP 104/54
--- NOTE | 2018-11-03 10:29 | NUR ---
ALERT. ORIENTED X2. SITUATIONAL CONFUSION. PHYSICAL THERAPY INITIATING THERAPY TREATMENT. DENIES ANY NEEDS AT THIS TIME. FAMILY AT BEDSIDE. CONTINUE PLAN OF CARE AND SAFETY PRECAUTIONS.
[2018-11-03 11:18] VITALS: BP 116/58
[2018-11-03 15:45] VITALS: BP 113/51
--- NOTE | 2018-11-03 16:00 | NUR ---
ALERT AND ORIENTED X2. FAMILY AT BEDSIDE. BED BATH AND LINEN CHANGE COMPLETE. ASSIST UP TO BEDSIDE COMMODE FOR BOWEL MOVEMENT.
[2018-11-03 19:49] VITALS: BP 144/63
--- NOTE | 2018-11-03 22:06 | NUR ---
INITIAL ROUNDS COMPLETED AT 1915 HRS. STATES PT HAS C/O CONSTIPATION. [facility]. ASSESSMENT COMPLETED AT 20 10 HRS. VSS. PT ALERT; ORIENTED TO PERSON AND PLACE ONLY. REORIENTED TO SITUATION AND TIME. BRUISE NOTED TO UPPER L FA. L ARM FISTULA WITH GOOD BRUIT AND THRILL. IV TO R FA WITH NS AT TKO. IV PATENT. LUNGS DIMINISHED IN BASES BILAT. O2 3LNC. ISBELL DRAINING SCANT URINE. SCRAPE NOTED TO RAFFY JAIME. MEPILEX TO COCCYX CLEAN AND DRY. PT CURRENTLY RESTING WITH EYES CLOSED. RESP EVEN AND REGULAR. SR UP X2, CALL LIGHT WITHIN REACH AND AT BEDSIDE.
[2018-11-03 23:18] VITALS: BP 116/60
--- NOTE | 2018-11-04 00:09 | NUR ---
PT RESTING WITH EYES CLOSED. RESP EVEN AND REGULAR. AT BEDSIDE. SR UP X2, CALL LIGHT WITHIN REACH.
--- NOTE | 2018-11-04 02:20 | NUR ---
PT RESTING WITH EYES CLOSED. RESP EVEN AND REGULAR. SR UP X2, CALL LIGHT WITHIN REACH AND AT BEDSIDE.
[2018-11-04 04:14] VITALS: BP 108/44; BP 127/66
--- NOTE | 2018-11-04 04:50 | NUR ---
PT REPOSITONED IN BED FOR COMFORT. AT BEDSIDE.
[2018-11-04 06:26] LABS: BASOPHILS 0.2 % (0-2); EOSINOPHILS 0.7 % (0-7); HEMATOCRIT 27.6 % (42.0-54.0); HEMOGLOBIN 8.8 g/dL (13.5-17.5); IMMATURE GRANULOCYTES 0.4 % (0-5); LYMPHOCYTES 5.5 % (15-50); MCH 27.8 pg (26.0-34.0); MCHC 31.9 g/dL (31.0-37.0); MCV 87.3 fL (80.0-100.0); MEAN PLATELET VOLUME 10.8 fL (7.4-10.4); MONOCYTES 11.6 % (2-11); NEUTROPHILS 81.6 % (40-80); PLATELET COUNT 184 10x3/uL (130-400); RBC 3.16 10x6/uL (4.20-6.10); RDW 15.1 % (11.5-14.5); WBC 12.4 10x3/uL (4.8-10.8)
--- NOTE | 2018-11-04 06:34 | NUR ---
VSS THROUGHOUT NIGHT. PT DENIED ANY DISCOMFORT. NEEDS MET; WILL CONTINUE TO MONITOR.
[2018-11-04 06:37] LABS: ALBUMIN 2.5 g/dL (3.4-5.0); ANION GAP 18.1 mmol/L (8-16); BILIRUBIN - TOTAL 0.78 mg/dL (0.2-1.3); CALCIUM 9.2 mg/dL (8.5-10.1); CARBON DIOXIDE 26.4 mmol/L (21.0-32.0); CREATININE - SERUM 5.5 mg/dL (0.6-1.3); PHOSPHOROUS 8.7 mg/dL (2.5-4.9); POTASSIUM - SERUM 4.5 mmol/L (3.5-5.1); PROTEIN - SERUM 6.3 g/dL (6.4-8.2)
[2018-11-04 07:40] VITALS: BP 121/64
[2018-11-04 11:29] VITALS: BP 117/64
--- NOTE | 2018-11-04 12:01 | NUR ---
TAKEN TO DIALYSIS VIA BED.
--- NOTE | 2018-11-04 14:30 | MORECARE ---
CASE MANAGEMENT DISCHARGE SUMMARY PATIENT: Tien BATISTA UNIT: [id number] ADM DATE: 10/18/18 AGE: 78 : 38 SEX: M ROOM/BED: D.2131 AUTHOR: NISHANT VICK PHYSICIAN: REFERRING PHYSICIAN: PAO PATEL MD DATE OF SERVICE: 11/04/18 Discharge Plan Patient Name: [facility]ien BATISTA [facility] [facility] 1940 Planned Disposition: Inpatient Rehab Anticipated Discharge Date: 11/05/18 Discharge Date: Expected LOS: 18 Initial Reviewer: [id number] Initial Review Date: 10/22/2018 Generated: 11/04/18 3:29 pm DCP- Discharge Planning Updated by [id number]: Ambrosio Lynn on 11/01/18 11:[address] Patient Name: Tien BATISTA Encounter No: [id number] : 1940 Primary Insurance: MEDICARE A & B Anticipated DC Date: 11-01-2018 Planned Disposition: Inpatient Rehab External Planned Provider: [facility] INPATIENT RE[facility] DCP follow-up note: CM MET WITH PT AND SPOUSE IN ROOM TO DISCUSS DISCHARGE NEEDS AND PLANNING. CM REVIEWED THERAPY NOTES AND DISCUSSED ORDER FOR OUTPATIENT DIALYSIS CLINIC ARRANGMENT AND NEED FOR CHONIC DIALYSIS. PT'S SPOUSE IS HOPEFUL THAT SINCE THEY WILL BE DOING DIALYSIS 3 DAYS WEEKLY INSTEAD OF DAILY, AND THEY HAVE SLOWED ON THE NIGHTTIME MEDICATION, THAT PT WILL BE MORE ABLE TO PARTICIPATE IN THERAPY AND CAN GO TO INPATIENT REHAB AT [place]. CM MENTIONED NURSING HOME FACILITY REHAB SECOND OPTION, PT'S SPOUSE WANTS PT TO BE CONSIDERED FOR INPATIENT REHAB AT [place]. CM SPOKE TO RN ALE RASCON WHO ADVISED THAT IN THE MORNING MEETING, REHAB MENTIONED THEY ARE STILL EVALUATING PT FOR REHAB ADMISSION. CM LEFT MESSAGE FOR ESTHELA OF [facility], NOTIFYING OF ORDER FOR OUTPATIENT DIALYSIS ARRANGEMENT CLINIC. CM WAITING MEDICAL STABILITY, OUTPATIENT DIALYSIS UNIT ARRANGEMENT WELL ADMISSION DETERMINATION FROM [facility] INPATIENT RE[facility]. Ambrosio Lynn CASE TAMERA DCP- Discharge Planning Updated by [id number]: Ambrosio Lynn on 10/22/18 2:[address] Patient Name: Tien BATISTA Admission Status: ER Accout number: [id number] Admission Date: 10-18-2018 : 1940 Admission Diagnosis: Attending: PABLO PATEL Current LOS: 4 Anticipated DC Date: 10-23-2018 Planned Disposition: Inpatient Rehab Primary Insurance: MEDICARE A & B PLANNED EXTERNAL PROVIDER: [facility] INPATIENT REHAB Discharge Planning Comments: CM RECEIVED ORDER FOR INPATIENT REHAB PRESCREENING. CM MET WITH PT AND SPOUSE IN ROOM TO DISCUSS DISCHARGE PLANNING AND NEEDS. Tien BATISTA provided verbal consent to discuss current and ongoing needs with/in the presence of: SPOUSE, HUE. PT REPORTS LIVING AT HOME INDEPENDENTLY WITH SPOUSE; PT REPORTS SHE HELPS PT WASH HIS BACK AT HOME, PT HAS OTHERWISE BEEN INDEPENDENT UNTIL GETTING SICK. PT HAS WALKER WITH NO MEDICAL EQUIPMENT PROVIDER [facility]ENJ[facility]. PT HAS NO OUTSIDE SERVICES ASSISTING IN THE HOME. CM DISCUSSED AVAILABILITY OF HOME HEALTH, REHAB SERVICES AND MEDICAL EQUIPMENT. PT AND SPOUSE WOULD CONSIDER REHAB AT [place], NO WHERE ELSE, WITH PLAN TO DISCHARGE HOME WITH SPOUSE AFTER REHAB. IMPORTANT MESSAGE FROM MEDICARE PROVIDED AND EXPLAINED. PT AND SPOUSE WOULD LIKE TO CONSIDER REHAB AT [facility]. CM WAITING PHYSICAL THERAPY EVALUATION AND INPATIENT REHAB PRESCREENING RESULTS FROM [facility] INPATIENT RE[facility]. Marketing Operations Assistant: Ambrosio Lynn DCPIA - Discharge Planning Initial Assessment Updated by [id number]: Ambrosio Lynn on 10/22/18 3:51 pm * Is the patient Alert and Oriented? Yes * How many steps to enter\exit or inside your home? * PCP DR. ZULETA * Pharmacy [facility] [address] * Preadmission Environment Home with Family * ADLs Independent * Equipment Walker * Other Equipment NO MEDICAL EQUIPMENT PROVIDER PREFERENCE * List name and contact numbers for known caregivers / representatives who currently or will assist patient after discharge: HUE BATISTA, SPOUSE, * Verbal permission to speak to the caregivers and representatives has been obtained from the patient. Yes * Community resources currently utilized None * Please name any agencies selected above. NONE * Additional services required to return to the preadmission environment? Yes * Can the patient safely return to the preadmission environment? Yes * Has this patient been hospitalized within the prior 30 days at any hospital? No External Providers External Provider: [facility] Next Contact Date: 11/04/2018 Service Request Date: Service Type: Resolution: Reviewer: Comments: Coverage Notice Reviewer: [id number] - Ambrosio Lynn Notice Issued Date-Time: 10/22/2018 15:40 Notice Type: IM Discharge Notice Notice Delivered To: Family Member Relationship to Patient: Spouse Termite Helper Name: HUE BATISTA Delivery Method: HAND - Hand Delivered Nadine Days: Prior Verbal Notification: Recipient Understood Notice: Yes Recipient Signature: Yes Med Rec Note Co-signed by Attending: Coverage Notice Comment: Last DP export: 11/01/18 11:21 a Patient Name: Tien BATISTA Page 58911 at 1430 All edits/amendments must be made on the electronic document DICTATION DATE: 11/04/181428 FIELD REIMBURSEMENT MANAGER: KIMBERLY 11/04/181428 RPT#: [id number] DC DATE: STATUS: ADM IN [facility] [address] [place] [address] END OF REPORT
--- NOTE | 2018-11-04 14:38 | NUR ---
Nutrition follow-up: Diet: Renal PO intake has improved to ~25-50% of most meals Labs reviewed Started dialysis last week +BM RDN following.
--- NOTE | 2018-11-04 15:14 | MORECARE ---
CASE MANAGEMENT DISCHARGE SUMMARY PATIENT: Tien BATISTA UNIT: [id number] ADM DATE: 10/18/18 AGE: 78 : 38 SEX: M ROOM/BED: D.2131 AUTHOR: NICANOR,DOC PHYSICIAN: REFERRING PHYSICIAN: PAO PATEL MD DATE OF SERVICE: 11/04/18 Discharge Plan Patient Name: [facility]ien BATISTA [facility] [facility] 1940 Planned Disposition: Inpatient Rehab Anticipated Discharge Date: 11/05/18 Discharge Date: Expected LOS: 18 Initial Reviewer: [id number] Initial Review Date: 10/22/2018 Generated: 11/04/18 4:13 pm Comments DCP- Discharge Planning Updated by [email or web address]: Ambrosio Lynn on 11/04/18 2:[address] Patient Name: Tien BATISTA Encounter No: [id number] : 1940 Primary Insurance: MEDICARE A & B Anticipated DC Date: 11-05-2018 Planned Disposition: Inpatient Rehab External Planned Provider: : [facility] DCP follow-up note: CM MET WITH PT, SPOUSE AND DAUGHTER IN ROOM. PT SLEPT THROUGH MEETING. CM ADVISED THAT PT HAS BEEN DECLINED BY INPATIENT REHAB AT [facility] DUE TO THEIR EVALUATION THAT PT CANNOT PARTICIPATE FULLY WITH THREE HOURS OF THERAPY PER DAY. CM DISCUSSED [facility] OPTIONS, PROVIDED LOCAL LISTING. PT'S SPOUSE AND DAUGHTER WOULD LIKE TO HAVE PT CONSIDERED BY INPATIENT REHAB AT [facility] AND IF DECLINED THERE ALSO, THEN THEY WILL CONSENT TO REHAB AT THE [facility]. CHOICE LETTER SIGNED. IMPORTANT MESSAGE FROM MEDICARE PROVIDED AND EXPLAINED. PT'S SPOUSE ASKED CM TO SPEAK TO PT'S OTHER DAUGHTER OUT OF STATE VIA PHONE; CM SPOKE TO MANDO HYLTON, . CM PROVIDED SAME UPDATE ABOVE. ALL FAMILY IN AGREEMENT WITH PLAN STATED ABOVE. CM COMPLETED SHU ASSESSMENT IN EVENT PT IS IN NEED OF REHAB AT [facility] AND REQUIRES A SHU ASSESSMENT. CM CALLED CROW OF [facility], , INFORMED OF REHAB EVALUATION. CM FAXED REHAB REFERRAL TO [facility] AT [phone]. CM WAITING ADMISSION DETERMINATION FROM [facility]. IF DECLINED FOR INPATIENT AT [facility], CM WILL REFER PT TO THE [facility] NURSING AND REH[facility]. GEORGE Hensley MANAGEMENT DCP- Discharge Planning Updated by [id number]: Ambrosio Lynn on 11/01/18 11:[address] Patient Name: Tien BATISTA Encounter No: [id number] : 1940 Primary Insurance: MEDICARE A & B Anticipated DC Date: 11-01-2018 Planned Disposition: Inpatient Rehab External Planned Provider: [facility] INPATIENT REH[facility] DCP follow-up note: CM MET WITH PT AND SPOUSE IN ROOM TO DISCUSS DISCHARGE NEEDS AND PLANNING. CM REVIEWED THERAPY NOTES AND DISCUSSED ORDER FOR OUTPATIENT DIALYSIS CLINIC ARRANGMENT AND NEED FOR CHONIC DIALYSIS. PT'S SPOUSE IS HOPEFUL THAT SINCE THEY WILL BE DOING DIALYSIS 3 DAYS WEEKLY INSTEAD OF DAILY, AND THEY HAVE SLOWED ON THE NIGHTTIME MEDICATION, THAT PT WILL BE MORE ABLE TO PARTICIPATE IN THERAPY AND CAN GO TO INPATIENT REHAB AT [facility]. CM MENTIONED [facility] REHAB SECOND OPTION, PT'S SPOUSE WANTS PT TO BE CONSIDERED FOR INPATIENT REHAB AT [facility]. CM SPOKE TO RN ALE HOUSE WHO ADVISED THAT IN THE MORNING MEETING, REHAB MENTIONED THEY ARE STILL EVALUATING PT FOR REHAB ADMISSION. CM LEFT MESSAGE FOR ESTHELA OF [facility], NOTIFYING OF ORDER FOR OUTPATIENT DIALYSIS ARRANGEMENT CLINIC. CM WAITING MEDICAL STABILITY, OUTPATIENT DIALYSIS UNIT ARRANGEMENT WELL ADMISSION DETERMINATION FROM [facility] INPATIENT REH[facility]. GEORGE Hensley DCP- Discharge Planning Updated by [id number]: Ambrosio Lynn on 10/22/18 2:[address] Patient Name: Tien BATISTA Admission Status: ER Accout number: [id number] Admission Date: 10-18-2018 : 1940 Admission Diagnosis: Attending: PABLO PATEL Current LOS: 4 Anticipated DC Date: 10-23-2018 Planned Disposition: Inpatient Rehab Primary Insurance: MEDICARE A & B PLANNED EXTERNAL PROVIDER: [facility] INPATIENT REH[facility] Discharge Planning Comments: CM RECEIVED ORDER FOR INPATIENT REHAB PRESCREENING. CM MET WITH PT AND SPOUSE IN ROOM TO DISCUSS DISCHARGE PLANNING AND NEEDS. Tien BATISTA provided verbal consent to discuss current and ongoing needs with/in the presence of: SPOUSE, HUE. PT REPORTS LIVING AT HOME INDEPENDENTLY WITH SPOUSE; PT REPORTS SHE HELPS PT WASH HIS BACK AT HOME, PT HAS OTHERWISE BEEN INDEPENDENT UNTIL GETTING SICK. PT HAS WALKER WITH NO MEDICAL EQUIPMENT PROVIDER PREFERNECE. PT HAS NO OUTSIDE SERVICES ASSISTING IN THE HOME. CM DISCUSSED AVAILABILITY OF HOME HEALTH, REHAB SERVICES AND MEDICAL EQUIPMENT. PT AND SPOUSE WOULD CONSIDER REHAB AT [facility], NO WHERE ELSE, WITH PLAN TO DISCHARGE HOME WITH SPOUSE AFTER REHAB. IMPORTANT MESSAGE FROM MEDICARE PROVIDED AND EXPLAINED. PT AND SPOUSE WOULD LIKE TO CONSIDER REHAB AT [facility]. CM WAITING PHYSICAL THERAPY EVALUATION AND INPATIENT REHAB PRESCREENING RESULTS FROM [facility] INPATIENT REHAB. Stunt Man: Ambrosio Lynn DCPIA - Discharge Planning Initial Assessment Updated by ASPEN: Ambrosio Lynn on 10/22/18 3:51 pm * Is the patient Alert and Oriented? Yes * How many steps to enter\exit or inside your home? * PCP DR. ZULETA * Pharmacy [facility] [address] * Preadmission Environment Home with Family * ADLs Independent * Equipment Walker * Other Equipment NO MEDICAL EQUIPMENT PROVIDER PREFERENCE * List name and contact numbers for known caregivers / representatives who currently or will assist patient after discharge: HUE BATISTA, SPOUSE, * Verbal permission to speak to the caregivers and representatives has been obtained from the patient. Yes * Community resources currently utilized None * Please name any agencies selected above. NONE * Additional services required to return to the preadmission environment? Yes * Can the patient safely return to the preadmission environment? Yes * Has this patient been hospitalized within the prior 30 days at any hospital? No Coverage Notice Reviewer: [id number] Lynn Notice Issued Date-Time: 10/22/2018 15:40 Notice Type: IM Discharge Notice Notice Delivered To: Family Member Relationship to Patient: Spouse Field Service Coordinator Name: HUE BATISTA Delivery Method: HAND - Hand Delivered Nadine Days: Prior Verbal Notification: Recipient Understood Notice: Yes Recipient Signature: Yes Med Rec Note Co-signed by Attending: Coverage Notice Comment: Reviewer: [id number] Lynn Notice Issued Date-Time: 11/04/2018 11:50 Notice Type: Patient Choice Letter Notice Delivered To: Family Member Relationship to Patient: Spouse Field Service Coordinator Name: HUE BATISTA Delivery Method: HAND - Hand Delivered Nadine Days: Prior Verbal Notification: Recipient Understood Notice: Yes Recipient Signature: Yes Med Rec Note Co-signed by Attending: Coverage Notice Comment: 1- BRANDT AUSTIN, 2 - RUBEN CARLIN Reviewer: [id number] - Ambrosio Lynn Notice Issued Date-Time: 11/04/2018 11:50 Notice Type: IM Discharge Notice Notice Delivered To: Family Member Relationship to Patient: Spouse Field Service Coordinator Name: HUE BATISTA Delivery Method: HAND - Hand Delivered Nadine Days: Prior Verbal Notification: Recipient Understood Notice: Yes Recipient Signature: Yes Med Rec Note Co-signed by Attending: Coverage Notice Comment: Last DP export: 11/04/18 1:30 pm Patient Name: Tien BATISTA Page 54043 at 1514 All edits/amendments must be made on the electronic document DICTATION DATE: 11/04/181512 CLINICAL ADMINISTRATOR: KIMBERLY 11/04/181512 RPT#: [id number] DC DATE: STATUS: ADM IN [facility] [address] [place] [address] END OF REPORT
--- NOTE | 2018-11-04 17:01 | MORECARE ---
CASE MANAGEMENT DISCHARGE SUMMARY PATIENT: Tien BATISTA UNIT: [id number] ADM DATE: 10/18/18 AGE: 78 : 38 SEX: M ROOM/BED: D.2131 AUTHOR: NICANORDOC PHYSICIAN: REFERRING PHYSICIAN: PAO PATEL MD DATE OF SERVICE: 11/04/18 Discharge Plan Patient Name: Tien BATISTA [facility] [facility] 1940 Planned Disposition: Inpatient Rehab Anticipated Discharge Date: 11/05/18 Discharge Date: Expected LOS: 18 Initial Reviewer: [id number] Initial Review Date: 10/22/2018 Generated: 11/04/18 6:01 pm Comments DCP- Discharge Planning Updated by [id number]: Ambrosio Lynn on 11/04/18 3:[address] Patient Name: Tien BATISTA Encounter No: [id number] : 1940 Primary Insurance: MEDICARE A & B Anticipated DC Date: 11-05-2018 Planned Disposition: Inpatient Rehab External Planned Provider: [facility] INPATIENT REH[facility] DCP follow-up note: CM RECEIVED MESSAGE FROM [facility] OF INPATIENT REHAB, THEY PLAN TO ACCEPT PT TOM[place], 11-05-18, FOR REHAB. PT'S SPOUSE NOTIFIED, IN AGREEMENT WITH DISCHARGE TO INPATIENT REHAB. NOTIFY [place] INPATIENT [facility] WHEN DISCHARGE ORDER IS RECEIVED. [facility] IN[facility] TO CONTACT MED 2 NURSE WITH ROOM NUMBER WHEN READY TO ACCEPT PT AND NURSE REPORT. Ambrosio Lynn, GEORGE PHILIP DCP- Discharge Planning Updated by [email or web address]: Ambrosio Lynn on 11/04/18 2:[address] Patient Name: Tien BATISTA Encounter No: [id number] : 1940 Primary Insurance: MEDICARE A & B Anticipated DC Date: 11-05-2018 Planned Disposition: Inpatient Rehab External Planned Provider: : [facility] DCP follow-up note: CM MET WITH PT, SPOUSE AND DAUGHTER IN ROOM. PT SLEPT THROUGH MEETING. CM ADVISED THAT PT HAS BEEN DECLINED BY INPATIENT REHAB AT [place] DUE TO THEIR EVALUATION THAT PT CANNOT PARTICIPATE FULLY WITH THREE HOURS OF THERAPY PER DAY. CM DISCUSSED LONGTERM REHAB OPTIONS, PROVIDED LOCAL LISTING. PT'S SPOUSE AND DAUGHTER WOULD LIKE TO HAVE PT CONSIDERED BY INPATIENT REHAB AT [facility] AND IF DECLINED THERE ALSO, THEN THEY WILL CONSENT TO REHAB AT THE [facility]. CHOICE LETTER SIGNED. IMPORTANT MESSAGE FROM MEDICARE PROVIDED AND EXPLAINED. PT'S SPOUSE ASKED CM TO SPEAK TO PT'S OTHER DAUGHTER OUT OF STATE VIA PHONE; CM SPOKE TO MANDO HYLTON, . CM PROVIDED SAME UPDATE ABOVE. ALL FAMILY IN AGREEMENT WITH PLAN STATED ABOVE. CM COMPLETED SHU ASSESSMENT IN EVENT PT IS IN NEED OF REHAB AT LONGTERM FACILITY AND REQUIRES A SHU ASSESSMENT. CM CALLED CROW OF [facility], , INFORMED OF REHAB EVALUATION. CM FAXED REHAB REFERRAL TO [facility] AT [phone]. CM WAITING ADMISSION DETERMINATION FROM [facility]. IF DECLINED FOR INPATIENT AT [facility], CM WILL REFER PT TO THE [facility] AND REHAB. GEORGE Hensley DCP- Discharge Planning Updated by [id number]: Ambrosio Lynn on 11/01/18 11:[address] Patient Name: Tien BATISTA Encounter No: [id number] : 1940 Primary Insurance: MEDICARE A & B Anticipated DC Date: 11-01-2018 Planned Disposition: Inpatient Rehab External Planned Provider: [facility] DCP follow-up note: CM MET WITH PT AND SPOUSE IN ROOM TO DISCUSS DISCHARGE NEEDS AND PLANNING. CM REVIEWED THERAPY NOTES AND DISCUSSED ORDER FOR OUTPATIENT DIALYSIS CLINIC ARRANGMENT AND NEED FOR CHONIC DIALYSIS. PT'S SPOUSE IS HOPEFUL THAT SINCE THEY WILL BE DOING DIALYSIS 3 DAYS WEEKLY INSTEAD OF DAILY, AND THEY HAVE SLOWED ON THE NIGHTTIME MEDICATION, THAT PT WILL BE MORE ABLE TO PARTICIPATE IN THERAPY AND CAN GO TO INPATIENT REHAB AT [place]. CM MENTIONED LONGTERM FACILITY REHAB SECOND OPTION, PT'S SPOUSE WANTS PT TO BE CONSIDERED FOR INPATIENT REHAB AT [place]. CM SPOKE TO JACY RASCON WHO ADVISED THAT IN THE MORNING MEETING, REHAB MENTIONED THEY ARE STILL EVALUATING PT FOR REHAB ADMISSION. CM LEFT MESSAGE FOR ESTHELA OF [facility], NOTIFYING OF ORDER FOR OUTPATIENT DIALYSIS ARRANGEMENT CLINIC. CM WAITING MEDICAL STABILITY, OUTPATIENT DIALYSIS UNIT ARRANGEMENT WELL ADMISSION DETERMINATION FROM [facility] INPAT[facility] RE[facility]. Ambrosio Shane, CASE MANAGEMENT DCP- Discharge Planning Updated by [id number]: Ambrosio Lynn on 10/22/18 2:[address] Patient Name: Tien BATISTA Admission Status: ER Accout number: [id number] Admission Date: 10-18-2018 : 1940 Admission Diagnosis: Attending: PABLO PATEL Current LOS: 4 Anticipated DC Date: 10-23-2018 Planned Disposition: Inpatient Rehab Primary Insurance: MEDICARE A & B PLANNED EXTERNAL PROVIDER: [facility] INPATIENT REHAB Discharge Planning Comments: CM RECEIVED ORDER FOR INPATIENT REHAB PRESCREENING. CM MET WITH PT AND SPOUSE IN ROOM TO DISCUSS DISCHARGE PLANNING AND NEEDS. Tien BATISTA provided verbal consent to discuss current and ongoing needs with/in the presence of: SPOUSE, HUE. PT REPORTS LIVING AT HOME INDEPENDENTLY WITH SPOUSE; PT REPORTS SHE HELPS PT WASH HIS BACK AT HOME, PT HAS OTHERWISE BEEN INDEPENDENT UNTIL GETTING SICK. PT HAS WALKER WITH NO MEDICAL EQUIPMENT PROVIDER PREFERNECE. PT HAS NO OUTSIDE SERVICES ASSISTING IN THE HOME. CM DISCUSSED AVAILABILITY OF HOME HEALTH, REHAB SERVICES AND MEDICAL EQUIPMENT. PT AND SPOUSE WOULD CONSIDER REHAB AT [place], NO WHERE ELSE, WITH PLAN TO DISCHARGE HOME WITH SPOUSE AFTER REHAB. IMPORTANT MESSAGE FROM MEDICARE PROVIDED AND EXPLAINED. PT AND SPOUSE WOULD LIKE TO CONSIDER REHAB AT [facility]. CM WAITING PHYSICAL THERAPY EVALUATION AND INPATIENT REHAB PRESCREENING RESULTS FROM [facility] INPATIENT REH[facility]. Mining Machinery Assembler: Ambrosio Lynn DCPIA - Discharge Planning Initial Assessment Updated by [id number]: Ambrosio Lynn on 10/22/18 3:51 pm * Is the patient Alert and Oriented? Yes * How many steps to enter\exit or inside your home? * PCP DR. ZULETA * Pharmacy [facility] [address] * Preadmission Environment Home with Family * ADLs Independent * Equipment Walker * Other Equipment NO MEDICAL EQUIPMENT PROVIDER PREFERENCE * List name and contact numbers for known caregivers / representatives who currently or will assist patient after discharge: HUE BATISTA, SPOUSE, * Verbal permission to speak to the caregivers and representatives has been obtained from the patient. Yes * Community resources currently utilized None * Please name any agencies selected above. NONE * Additional services required to return to the preadmission environment? Yes * Can the patient safely return to the preadmission environment? Yes * Has this patient been hospitalized within the prior 30 days at any hospital? No Coverage Notice Reviewer: [id number] Lynn Notice Issued Date-Time: 10/22/2018 15:40 Notice Type: IM Discharge Notice Notice Delivered To: Family Member Relationship to Patient: Spouse Director Client Services Name: HUE BATISTA Delivery Method: HAND - Hand Delivered Nadine Days: Prior Verbal Notification: Recipient Understood Notice: Yes Recipient Signature: Yes Med Rec Note Co-signed by Attending: Coverage Notice Comment: Reviewer: ASPEN Lynn Notice Issued Date-Time: 11/04/2018 11:50 Notice Type: Patient Choice Letter Notice Delivered To: Family Member Relationship to Patient: Spouse Director Client Services Name: HUE BATISTA Delivery Method: HAND - Hand Delivered Nadine Days: Prior Verbal Notification: Recipient Understood Notice: Yes Recipient Signature: Yes Med Rec Note Co-signed by Attending: Coverage Notice Comment: 1- BRANDT AUSTIN, 2 - RUBEN CARLIN Reviewer: [id number] Lynn Notice Issued Date-Time: 11/04/2018 11:50 Notice Type: IM Discharge Notice Notice Delivered To: Family Member Relationship to Patient: Spouse Director Client Services Name: HUE BATISTA Delivery Method: HAND - Hand Delivered Nadine Days: Prior Verbal Notification: Recipient Understood Notice: Yes Recipient Signature: Yes Med Rec Note Co-signed by Attending: Coverage Notice Comment: Last DP export: 11/04/18 2:14 pm Patient Name: Tien BATISTA Page 29512 at 1701 All edits/amendments must be made on the electronic document DICTATION DATE: 11/04/181700 FISHING VESSEL CAPTAIN: KIMBERLY 11/04/181700 RPT#: [id number] DC DATE: STATUS: ADM IN [facility] [address] [place] [address] END OF REPORT
--- NOTE | 2018-11-04 19:29 | NUR ---
RECIEVED LAYING IN BED WITH EYES CLOSED AND DTR AT BEDSIDE. DTR REPORTS HE HAD A BIG DAY AND IS VERY TIRED. AROUSES WITH VERBAL STIMULI AND GOES BACK TO SLEEP. LUNG SOUNDS CLEAR DEEPAK.. LEFT ARM RESERVED D/T AVF. FISTULA HAS GOOD BRUIT AND TRILL. F/C IN PLACE WITH SMALL AMT OF CLEAR YELLOW URINE. LARGE BRUISE TO LEFT UPPER ARM AND DSG TO COCCYX. CDI. RECIEVING LOVENOX FOR DVT PROFALAXIS. IV TO RIGHT FA WITH DRIED BLOOD UNDER TAPE. NO S/S OF DISTRESS OBSERVED.
[2018-11-04 19:55] VITALS: BP 104/56
[2018-11-04 23:58] VITALS: BP 102/53
--- NOTE | 2018-11-05 00:55 | NUR ---
PT CONTINUOSLY PULLS O2 OFF AND UNABLE TO KEEP IT ON HIM. DTR AT BEDSIDE HAS ALSO TRIED SEVERAL TIMES. UNSUCESSFULLY. O2 SAT AT 90%. WILL ATTEMPT TO PLACE O2 AGAIN.
[2018-11-05 04:06] VITALS: BP 110/54
[2018-11-05 06:16] LABS: BASOPHILS 0.3 % (0-2); EOSINOPHILS 1.4 % (0-7); IMMATURE GRANULOCYTES 0.3 % (0-5); LYMPHOCYTES 4.5 % (15-50); MCH 27.4 pg (26.0-34.0); MCV 88.1 fL (80.0-100.0); MEAN PLATELET VOLUME 11.4 fL (7.4-10.4); MONOCYTES 11.5 % (2-11); PLATELET COUNT 172 10x3/uL (130-400); RBC 3.29 10x6/uL (4.20-6.10); RDW 14.9 % (11.5-14.5); WBC 11.7 10x3/uL (4.8-10.8)
[2018-11-05 06:37] LABS: ALBUMIN 2.5 g/dL (3.4-5.0); ANION GAP 11.8 mmol/L (8-16); BILIRUBIN - TOTAL 0.74 mg/dL (0.2-1.3); CALCIUM 9.1 mg/dL (8.5-10.1); CARBON DIOXIDE 30.2 mmol/L (21.0-32.0); CREATININE - SERUM 4.6 mg/dL (0.6-1.3); PROTEIN - SERUM 6.5 g/dL (6.4-8.2); VANCOMYCIN - RANDOM 14.3 ug/mL (10.0-20.0)
[2018-11-05 07:28] VITALS: BP 122/60
[2018-11-05] MEDS ORDERED: RENVELA2.4 GM PO (10:26)
--- NOTE | 2018-11-05 11:29 | MORECARE ---
CASE MANAGEMENT DISCHARGE SUMMARY PATIENT: Tien BATISTA UNIT: [id number] ADM DATE: 10/18/18 AGE: 78 : 38 SEX: M ROOM/BED: D.[facility] AUTHOR: NISHANT VICK PHYSICIAN: REFERRING PHYSICIAN: PAO PATEL MD DATE OF SERVICE: 11/05/18 Discharge Plan Patient Name: Tien BATISTA Facility: [facility]:[place] : 1940 Planned Disposition: Inpatient Rehab Anticipated Discharge Date: 11/05/18 Discharge Date: Expected LOS: 18 Initial Reviewer: [id number] Initial Review Date: 10/22/2018 Generated: 11/05/18 12:29 pm Comments DCP- Discharge Planning Updated by [id number]: Ambrosio Lynn on 11/05/18 10:[address] Patient Name: Tien BATISTA Encounter No: [id number] : 1940 Primary Insurance: MEDICARE A & B Anticipated DC Date: 11-05-2018 Planned Disposition: Inpatient Rehab External Planned Provider: [facility] INPATIENT FOOD SERVICE TECHNICIAN [employer]LE [employer]SE SPOKE TO CARLOS VERDUZCO, THEY PLAN TO DISCHARGE PT TODAY TO REHAB AT [facility] TODAY. CM SPOKE TO ARCHANA OF INPATIENT REHAB AT [facility], THEY PLAN TO ACCEPT PT TODAY FOR REHAB. CM NOTIFIED [facility] OF PT/FAMILY DECISION TO ADMIT TO [facility] INPATIENT REHAB. [facility] INPATIENT REHAB TO CONTACT MED 2 NURSE WITH ROOM NUMBER WHEN READY TO ACCEPT PT AND NURSE REPORT. Ambrosio Lynn, CASE MANAGEMENT DCP- Discharge Planning Updated by [id number]: Ambrosio Lynn on 11/04/18 3:[address] Patient Name: Tien BATISTA Encounter No: [id number] : 1940 Primary Insurance: MEDICARE A & B Anticipated DC Date: 11-05-2018 Planned Disposition: Inpatient Rehab External Planned Provider: [facility] INPATIENT REHAB DCP follow-up note: CM RECEIVED MESSAGE FROM HONORIO OF INPATIENT REHAB, THEY PLAN TO ACCEPT PT TOMORRO, 11-05-18, FOR REHAB. PT'S SPOUSE NOTIFIED, IN AGREEMENT WITH DISCHARGE TO INPATIENT REHAB. NOTIFY [facility] IN[facility]IENT [facility] WHEN DISCHARGE ORDER IS RECEIVED. [facility] INPATIENT REHAB TO CONTACT MED 2 NURSE WITH ROOM NUMBER WHEN READY TO ACCEPT PT AND NURSE REPORT. GEORGE Hensley MANAGEMENT DCP- Discharge Planning Updated by [id number]: Ambrosio Lynn on 11/04/18 2:[address] Patient Name: Tien BATISTA Encounter No: [id number] : 1940 Primary Insurance: MEDICARE A & B Anticipated DC Date: 11-05-2018 Planned Disposition: Inpatient Rehab External Planned Provider: : [facility] DCP follow-up note: CM MET WITH PT, SPOUSE AND DAUGHTER IN ROOM. PT SLEPT THROUGH MEETING. CM ADVISED THAT PT HAS BEEN DECLINED BY INPATIENT REHAB AT [facility] DUE TO THEIR EVALUATION THAT PT CANNOT PARTICIPATE FULLY WITH THREE HOURS OF THERAPY PER DAY. CM DISCUSSED PRISON REHAB OPTIONS, PROVIDED LOCAL LISTING. PT'S SPOUSE AND DAUGHTER WOULD LIKE TO HAVE PT CONSIDERED BY INPATIENT REHAB AT [facility] AND IF DECLINED THERE ALSO, THEN THEY WILL CONSENT TO REHAB AT THE [facility] AND REHAB. CHOICE LETTER SIGNED. IMPORTANT MESSAGE FROM MEDICARE PROVIDED AND EXPLAINED. PT'S SPOUSE ASKED CM TO SPEAK TO PT'S OTHER DAUGHTER OUT OF STATE VIA PHONE; CM SPOKE TO MANDO WARNER, . CM PROVIDED SAME UPDATE ABOVE. ALL FAMILY IN AGREEMENT WITH PLAN STATED ABOVE. CM COMPLETED SHU ASSESSMENT IN EVENT PT IS IN NEED OF REHAB AT PRISON FACILITY AND REQUIRES A SHU ASSESSMENT. CM CALLED [facility] OF [facility], , INFORMED OF REHAB EVALUATION. CM FAXED REHAB REFERRAL TO [facility] AT [phone]. CM WAITING ADMISSION DETERMINATION FROM [facility]. IF DECLINED FOR INPATIENT AT [facility], CM WILL REFER PT TO THE [facility] AND REHAB. Ambrosio Lynn CASE TAMERA DCP- Discharge Planning Updated by [email or web address]: Ambrosio Lynn on 11/01/18 11:[address] Patient Name: Tien BATISTA Encounter No: [id number] : 1940 Primary Insurance: MEDICARE A & B Anticipated DC Date: 11-01-2018 Planned Disposition: Inpatient Rehab External Planned Provider: [facility] INPAT[facility] DCP follow-up note: CM MET WITH PT AND SPOUSE IN ROOM TO DISCUSS DISCHARGE NEEDS AND PLANNING. CM REVIEWED THERAPY NOTES AND DISCUSSED ORDER FOR OUTPATIENT DIALYSIS CLINIC ARRANGMENT AND NEED FOR [facility]. PT'S SPOUSE IS HOPEFUL THAT SINCE THEY WILL BE DOING DIALYSIS 3 DAYS WEEKLY INSTEAD OF DAILY, AND THEY HAVE SLOWED ON THE NIGHTTIME MEDICATION, THAT PT WILL BE MORE ABLE TO PARTICIPATE IN THERAPY AND CAN GO TO INPATIENT REHAB AT [facility]. CM MENTIONED PRISON FACILITY REHAB SECOND OPTION, PT'S SPOUSE WANTS PT TO BE CONSIDERED FOR INPATIENT REHAB AT [facility]. CM SPOKE TO RN ALE ARSCON WHO ADVISED THAT IN THE MORNING MEETING, REHAB MENTIONED THEY ARE STILL EVALUATING PT FOR REHAB ADMISSION. CM LEFT MESSAGE FOR ESTHELA OF PATIENT PATHWAYS, NOTIFYING OF ORDER FOR OUTPATIENT DIALYSIS ARRANGEMENT CLINIC. CM WAITING MEDICAL STABILITY, OUTPATIENT DIALYSIS UNIT ARRANGEMENT WELL ADMISSION DETERMINATION FROM [facility] INPATIENT RE[facility]. Ambrosio Lynn, CASE MANAGEMENT DCP- Discharge Planning Updated by [id number]: Ambrosio Lynn on 10/22/18 2:[address] Patient Name: Tien BATISTA Admission Status: ER Accout number: [id number] Admission Date: 10-18-2018 : 1940 Admission Diagnosis: Attending: PABLO PATEL Current LOS: 4 Anticipated DC Date: 10-23-2018 Planned Disposition: Inpatient Rehab Primary Insurance: MEDICARE A & B PLANNED EXTERNAL PROVIDER: [facility] INPATIENT REHAB Discharge Planning Comments: CM RECEIVED ORDER FOR INPATIENT REHAB PRESCREENING. CM MET WITH PT AND SPOUSE IN ROOM TO DISCUSS DISCHARGE PLANNING AND NEEDS. Tien BATISTA provided verbal consent to discuss current and ongoing needs with/in the presence of: SPOUSE, HUE. PT REPORTS LIVING AT HOME INDEPENDENTLY WITH SPOUSE; PT REPORTS SHE HELPS PT WASH HIS BACK AT HOME, PT HAS OTHERWISE BEEN INDEPENDENT UNTIL GETTING SICK. PT HAS WALKER WITH NO MEDICAL EQUIPMENT PROVIDER PREFERNECE. PT HAS NO OUTSIDE SERVICES ASSISTING IN THE HOME. CM DISCUSSED AVAILABILITY OF HOME HEALTH, REHAB SERVICES AND MEDICAL EQUIPMENT. PT AND SPOUSE WOULD CONSIDER REHAB AT [facility], NO WHERE ELSE, WITH PLAN TO DISCHARGE HOME WITH SPOUSE AFTER REHAB. IMPORTANT MESSAGE FROM MEDICARE PROVIDED AND EXPLAINED. PT AND SPOUSE WOULD LIKE TO CONSIDER REHAB AT [facility]. CM WAITING PHYSICAL THERAPY EVALUATION AND INPATIENT REHAB PRESCREENING RESULTS FROM [facility] INPATIENT RE[facility]. Underwriting Service Representative: Ambrosio Lynn DCPIA - Discharge Planning Initial Assessment Updated by [email or web address]: Ambrosio Lynn on 10/22/18 3:51 pm * Is the patient Alert and Oriented? Yes * How many steps to enter\exit or inside your home? * PCP DR. ZULETA * Pharmacy [facility] [address] * Preadmission Environment Home with Family * ADLs Independent * Equipment Walker * Other Equipment NO MEDICAL EQUIPMENT PROVIDER PREFERENCE * List name and contact numbers for known caregivers / representatives who currently or will assist patient after discharge: HUE BATISTA, SPOUSE, * Verbal permission to speak to the caregivers and representatives has been obtained from the patient. Yes * Community resources currently utilized None * Please name any agencies selected above. NONE * Additional services required to return to the preadmission environment? Yes * Can the patient safely return to the preadmission environment? Yes * Has this patient been hospitalized within the prior 30 days at any hospital? No Coverage Notice Reviewer: [id number] Anjali Lynn Notice Issued Date-Time: 10/22/2018 15:40 Notice Type: IM Discharge Notice Notice Delivered To: Family Member Relationship to Patient: Spouse Mission Manager Name: HUE BATISTA Delivery Method: HAND - Hand Delivered Nadine Days: Prior Verbal Notification: Recipient Understood Notice: Yes Recipient Signature: Yes Med Rec Note Co-signed by Attending: Coverage Notice Comment: Reviewer: [id number] Lynn Notice Issued Date-Time: 11/04/2018 11:50 Notice Type: Patient Choice Letter Notice Delivered To: Family Member Relationship to Patient: Spouse Mission Manager Name: HUE BATISTA Delivery Method: HAND - Hand Delivered Nadine Days: Prior Verbal Notification: Recipient Understood Notice: Yes Recipient Signature: Yes Med Rec Note Co-signed by Attending: Coverage Notice Comment: 1- [facility], 2 - [facility] Reviewer: [id number] Anjali Lynn Notice Issued Date-Time: 11/04/2018 11:50 Notice Type: IM Discharge Notice Notice Delivered To: Family Member Relationship to Patient: Spouse Mission Manager Name: HUE BATISTA Delivery Method: HAND - Hand Delivered Nadine Days: Prior Verbal Notification: Recipient Understood Notice: Yes Recipient Signature: Yes Med Rec Note Co-signed by Attending: Coverage Notice Comment: Last DP export: 11/04/18 4:01 pm Patient Name: LESTER, R Page [phone] at 1129 All edits/amendments must be made on the electronic document DICTATION DATE: 11/05/181128 MEETING FACILITATOR: KIMBERLY 11/05/181128 RPT#: [id number] DC DATE: STATUS: ADM IN [facility] [address] [place] [address] END OF REPORT
[2018-11-05 11:39] VITALS: BP 119/57
[2018-11-05] MEDS ORDERED: ZOSYN 2.25 GM2.25 G1 IV (12:36)
--- NOTE | 2018-11-05 14:02 | NUR ---
REPORT GIVEN TO WILMAN IN REHAB. DELROY ISBELL. DEFLATE BULB 9ml OF AIR. BULB INTACT. IV LEFT RT FA FOR IV ANTIBIOTICS ORDERED. ESCORT TO ROOM 1118B. REMAINS FREE FORM INJURY.
== END 2018-11-05 14:29 | DRG 682 ==
LOC: D.ER 07:20 → D.M2 10:23
PROVIDERS: Emergency Medicine; Family Medicine; Internal Medicine; Internal Medicine Nephrology; ADMIT Emergency Medicine; ATTEND Emergency Medicine
PROC: 5A1D70Z Performance of Urinary Filtration, Intermittent, Less than 6 Hours Per Day (ICD-10-PCS; principal; 2018-10-28)
DX: N17.9 Acute kidney failure, unspecified (principal); A41.9 Sepsis, unspecified organism; G92 Toxic encephalopathy; J18.9 Pneumonia, unspecified organism; I12.0 Hypertensive chronic kidney disease with stage 5 chronic kidney disease or end stage renal disease; N13.8 Other obstructive and reflux uropathy; N30.90 Cystitis, unspecified without hematuria; N18.6 End stage renal disease; N41.9 Inflammatory disease of prostate, unspecified; D63.1 Anemia in chronic kidney disease; E87.6 Hypokalemia; N40.1 Benign prostatic hyperplasia with lower urinary tract symptoms; N28.1 Cyst of kidney, acquired; Z87.891 Personal history of nicotine dependence

== ENCOUNTER 2018-11-05 14:34 | Inpatient (IN) | payer MEDICARE, OTHER ==
[~2018-11-05] VITALS: Ht 175.3 cm; Wt 75.6 kg
[~2018-11-05 14:34] MED LIST changes: +BIOFREEZE118 ML TOPICAL; +LASIX80 MG PO; +RENVELA2.4 GM PO; +ROCALTROL0.25 MCG PO; +SODIUM BICARBO650 MG PO; +ULTRAM50 MG PO; +VITAMIN D250000 UNIT PO; +ZOSYN 2.25 GM2.25 G1 IV; +[UNRECOGNIZED DRUG - CODE] PO
--- NOTE | 2018-11-05 14:40 | NUR ---
ADMITTED TO REHAB ROOM 1118B FROM ACUTE UNIT. ALERT WITH CONFUSION. THINKS IT IS 2000. OF 5 YEARS AT BS. PATIENT HAS A RED UNBLANCHABLE AREA ON COCCYX. L ARM FISTULA WITH BRUIT/THRILL PRESENT. SL R ARM. CL IN REACH. INSTRUCTED /PATIENT TO USE FOR ASSIST. EXPLAINED THERAPY, SAFETY AND ADMIT INFORMATION.
[2018-11-05 14:47] VITALS: BP 125/60
--- NOTE | 2018-11-06 00:03 | NUR ---
PT IN BED LOWEST POSITION, EYES CLOSED AROUSES EASILY TO VOICE, BREATHS EVEN AND UNLABORED, NO NEEDS NOTED, FLUIDS AND CALL LIGHT WITHIN REACH
--- NOTE | 2018-11-06 02:39 | NUR ---
PT IN BED LOWEST POSITION, EYES CLOSED AROUSES EASILY TO VOICE, BREATHS EVEN AND UNLABORED, NO NEEDS NOTED, FLUIDS AND CALL LIGHT WITHIN REACH
[2018-11-06 03:39] VITALS: BP 125/59
[2018-11-06 06:38] VITALS: BP 115/64
--- NOTE | 2018-11-06 08:00 | NUR ---
SHIFT ASSMT COMPLETED.CL IN REACH.
[2018-11-06 08:52] VITALS: Ht 175.3 cm; Wt 75.6 kg
[2018-11-06 11:40] VITALS: BP 124/67
--- NOTE | 2018-11-06 13:10 | RHP ---
PATIENT: Tien BATISTA MEDICAL RECORD: [id number] ACCOUNT: [id number] LOCATION:[facility] : [birth year] ADMISSION DATE: 11/05/18 REHABILITATION HISTORY AND PHYSICAL EXAMINATION POST ADMISSION PHYSICIAN EXAMINATION ADMITTING DIAGNOSIS: Toxic metabolic encephalopathy. HISTORY OF PRESENT ILLNESS: The patient was admitted to the inpatient rehab for toxic metabolic encephalopathy. He is a 77-year-old gentleman who presented with complaints of low back pain to the ED and frequency and pain with voiding. He had a past medical history of stage IV kidney disease. He also had chills, subjective fever. He still makes urine. Denies any other complaints. He had had some dark stools also. He was admitted with pyelonephritis versus prostatitis and chronic kidney disease. He has a matured left upper extremity chuloonawick forearm AV fistula with good bruit and thrill. He was last in clinic on 09/20/2018 for nephrology, his creatinine was 5.34 at that time. He has been in 6 months here and 6 months in [place]. He is followed by Dr. Machado in [place] there. He has got known chronic kidney disease. He was running fever. His creatinine here was 6.7. CT of the abdomen and pelvis showed bilateral perinephric stranding with acute pyelonephritis. He has known inflammatory changes around the pancreatic head, so acute pancreatitis cannot be excluded at that time. He has been having some increasing confusion during his hospital stay. Speech therapy was done. He had oropharyngeal dysphagia and recommended mechanical soft diet and thickened liquids and aspiration precautions. He has had good improvement in his creatinine. He has had a Forman placed. His creatinine was up to 6.3 and BUN 157. He was started on dialysis. He has been having hemodialysis 3 times weekly. He has got acute encephalopathy, which was thought to be a combination of his sundowning and also underlying dementia along with his infection. The patient has been somewhat more alert and will resume PT to improve physically and deconditioned with OT and speech therapy. He currently has a Forman catheter. He is being monitored closely. He has got new onset renal failure with hemodialysis 3 times weekly and increased confusion, but is slowly resolving. He has got IV therapy with antibiotics, electrolyte protocol. He is deconditioned, debility, impaired mobility, high fall risk and self-care deficits. These are all barriers to his discharge home at this time. He was independent with ADLs and mobility prior to this hospitalization. He is currently set up for max assist with ADLs and mod to total assist with his mobility. He and his would like for him to return back home at his prior level of functioning or possibly even better. COMORBIDITIES: In this patient include oropharyngeal dysphagia, hemorrhagic cystitis, chronic kidney disease, anemia, acute renal failure, urinary tract infection, chronic kidney disease, acute bladder outflow obstruction, and cystitis. PAST MEDICAL HISTORY: Significant for cataracts, glasses, hypertension, and chronic kidney disease. PAST SURGICAL HISTORY: Include a skin cancer removal and also an AV fistula. ALLERGIES: No known drug allergies. CURRENT MEDICATIONS: Include Floranex daily. He is on vitamin D 5000 units daily, sodium bicarbonate 650 daily, Protonix 40 mg daily, furosemide 80 mg HISTORY AND PHYSICAL [id number] LESTER,R C daily, Flonase nasal spray daily. He is on erythropoietin 10,000 units on Sunday, Sunday and Sunday. He is on Rocaltrol 0.25 mcg daily. He is on aspirin chewable 81 mg daily, allopurinol 150 mg daily, amlodipine 10 mg daily, hydrochlorothiazide 25 mg b.i.d., tramadol 50 mg b.i.d. p.r.n., Hytrin 1 mg q.h.s., sevelamer. He is on 2.4 grams t.i.d. with meals. He is on Zosyn 2.25 g IV q.8 hours, he is on again a total of 7 days of this. He is on Neurontin 100 mg b.i.d. HABITS: No current alcohol or tobacco use. FAMILY HISTORY: Noncontributory. SOCIAL HISTORY: The patient hopes to return back home with his and get back to his prior level of functioning. REVIEW OF SYSTEMS: GENERAL: Does complain of weakness and fatigue. HEENT: Denies cold, cough, or congestion. CARDIOVASCULAR: He denies chest pain. PHYSICAL EXAMINATION: VITAL SIGNS: Stable, afebrile. GENERAL: An elderly gentleman in no acute distress, alert upon exam. HEENT: Normocephalic and atraumatic. Mucosa moist. NECK: Supple. No lymphadenopathy. LUNGS: Clear at this time with no wheeze, rhonchi, or rales. HEART: Regular rate and rhythm. No murmurs, rubs or gallops. ABDOMEN: Benign. EXTREMITIES: No clubbing, cyanosis or edema. NEUROLOGIC: He is little bit slow to mentate and has proximal muscle weakness. LABORATORY DATA: His white count 11.7, H&H 9 and 29, and platelet count was noted to be 172. His admit chemistry showed sodium 139, potassium 4.0, BUN and creatinine of 54 and 4.6. His admit UA did show trace leukocyte esterase and also protein. His INR is within normal limits. Hepatitis panel was negative. ASSESSMENT: This is an 78-year-old gentleman admitted to the rehab with a working diagnosis of acute toxic encephalopathy. The patient has potential to make improvement. We instituted the following multidisciplinary therapies to include, but not limited to physical, occupational, respiratory, speech, nutritional services, prosthetics and orthotics. Given his complex medical condition and risks of more complications, rehabilitation services cannot be provided at a low level of care such as longterm facility. PLAN: 1. Admit to [facility] for intensive inpatient therapy to include the following disciplines: A. Physical therapy to improve gait, all transfer skills and bed mobility to a modified independent level. B. Occupational therapy to improve activities of daily living to a modified independent level. C. Case management to assist with discharge planning and placement options. D. Nutrition to assist with nutritional needs. E. Rehabilitation nursing to assist in monitoring the patient's underlying medical conditions and to assist with any type of bowel or bladder management. HISTORY AND PHYSICAL [id number] Tien BATISTA 2. The patient's current medication and medical care will be continued. 3. The patient will be placed on standard fall precautions. 4. The patient's estimated length of stay is approximately 7-10 days. 5. We will follow this patient along with nephrology. Continue hemodialysis. TRANSINT:[id number] Voice Confirmation ID: [id number] DOCUMENT ID: [id number] WANDA notes whether there has been none or any medical/functional change since admission: - No change since pre-admission screen. WANDA attests patient continues to be appropriate for IRF: - Continues to be appropriate. PAO PATEL MD at 1310 CC: [id number] DICTATION DATE: 11/06/18822 PIPE INSULATOR: 11/06/18 1141 ADM IN [facility] [address] [id number]
--- NOTE | 2018-11-06 15:26 | NUR ---
CARE TEAM MEETING: SPOUSE ATTENDED MEETING. PATIENT IS NEW TO UNIT AND WILL BE RA AT NEXT MEETING. HER QUESTIONS AND CONCERNS WERE ADDRESSED. WILL CONTINUE TO FOLLOW WITH PATIENT.
[2018-11-06 19:00] VITALS: BP 96/66
--- NOTE | 2018-11-07 00:53 | NUR ---
PT IN BED LOWEST POSITION, EYES CLOSED AROUSES EASILY TO VOICE, BREATHS EVEN AND UNLABORED, NO NEEDS NOTED, FLUIDS AND CALL LIGHT WITHIN REACH
[2018-11-07 06:25] VITALS: BP 121/60
[2018-11-07 06:27] VITALS: BP 132/68
--- NOTE | 2018-11-07 08:00 | NUR ---
SHIFT ASSMT COMPLETED.UP OOB TO WHEELCHAIR FOR BREAKFAST.CL IN REACH.
--- NOTE | 2018-11-07 12:00 | NUR ---
SITTING UP EATING LUNCH.
[2018-11-07 12:15] VITALS: BP 101/57
--- NOTE | 2018-11-07 22:27 | NUR ---
PT IN BED LOWEST POSITION, EYES CLOSED AROUSES EASILY TO VOICE, BREATHS EVEN AND UNLABORED, NO NEEDS NOTED, FLUIDS AND CALL LIGHT WITHIN REACH
[2018-11-08 01:11] VITALS: BP 111/69; BP 76/32
[2018-11-08 01:19] VITALS: BP 125/59
--- NOTE | 2018-11-08 03:17 | NUR ---
PT IN BED LOWEST POSITION, EYES CLOSED AROUSES EASILY TO VOICE, BREATHS EVEN AND UNLABORED, NO NEEDS NOTED, FLUIDS AND CALL LIGHT WITHIN REACH
--- NOTE | 2018-11-08 06:32 | NUR ---
NOTED BLOOD ON PT SHIRT AND BED, PT APPARENTLY HAD HIT ARM ON BED RAIL DURING NIGHT CAUSING PREVIOUS AREA TOBLEED, AREA CLEANED DRIED AND COVERED WITH TRANSPARENT BANDAGE
[2018-11-08 07:29] LABS: BASOPHILS 0.2 % (0-2); EOSINOPHILS 1.7 % (0-7); HEMOGLOBIN 9.3 g/dL (13.5-17.5); IMMATURE GRANULOCYTES 0.4 % (0-5); LYMPHOCYTES 5.8 % (15-50); MCH 26.9 pg (26.0-34.0); MCV 86.7 fL (80.0-100.0); MEAN PLATELET VOLUME 10.6 fL (7.4-10.4); MONOCYTES 9.9 % (2-11); PLATELET COUNT 152 10x3/uL (130-400); RBC 3.46 10x6/uL (4.20-6.10); RDW 15.1 % (11.5-14.5); WBC 11.4 10x3/uL (4.8-10.8)
[2018-11-08 07:39] LABS: ANION GAP 14.1 mmol/L (8-16); CALCIUM 9.6 mg/dL (8.5-10.1); CARBON DIOXIDE 30.7 mmol/L (21.0-32.0); CREATININE - SERUM 6.7 mg/dL (0.6-1.3); POTASSIUM - SERUM 3.8 mmol/L (3.5-5.1)
[2018-11-08 11:51] VITALS: BP 105/54
--- NOTE | 2018-11-08 13:03 | NUR ---
Nutrition Follow Up: Pt did not speak much at the time of RD visit. Pt's stated that his appetite seems to be improving today and he is eating better. He said that he likes to drink Nepro. Diet: Renal ADA Mech Soft; Nepro TID PO Intake: 52% meal avg BM: 11/05/18 Labs reviewed Meds noted including Lasix Will change diet to renal as pt is not diabetic. Will continue Nepro TID. Will honor food preferences within renal diet. RD following.
--- NOTE | 2018-11-08 15:28 | NUR ---
STILL IN DIALYSIS
--- NOTE | 2018-11-08 20:15 | NUR ---
PT RESTING IN BED WITH EYES OPEN. ALERT AND ORIENTED X 3. PT DENIES ACUTE DISCOMFORT AT THIS TIME. NO NEEDS VOICED.
--- NOTE | 2018-11-08 21:30 | NUR ---
PT ASSISTED TO THE BATHROOM WITH MOD ASSIST USING A WC. LARGE FORMED BM NOTED.
[2018-11-08 21:45] VITALS: BP 113/68
--- NOTE | 2018-11-08 23:46 | NUR ---
RESTING QUIETLY IN BED WITH EYES CLOSED. NO ACUTE DISTRESS NOTED.
--- NOTE | 2018-11-09 01:18 | NUR ---
PT RESTING IN BED WITH EYES CLOSED.
--- NOTE | 2018-11-09 02:41 | NUR ---
RESTING IN BED WITH RESPIRATIONS UNLABORED. NO DISTRESS NOTED. CALL LIGHT IN REACH.
--- NOTE | 2018-11-09 06:05 | NUR ---
PT RESTING IN BED WITH EYES CLOSED.
[2018-11-09 12:16] VITALS: BP 102/49
--- NOTE | 2018-11-09 13:47 | NUR ---
HAS BEEN SITTING UP MOST OF MORNING AND AFTERNOON. JUST GOT BACK INTO BED. IN ROOM WITH HIM. HE IS ORIENTED X4. DENIES PAIN OR INCREASED SOB. SLOW TO RESPOND AND ANSWER AT TIMES. CALL LIGHT IN REACH
[2018-11-09 17:56] VITALS: BP 98/50
--- NOTE | 2018-11-09 18:19 | NUR ---
IN ROOM WITH PT. SHE FED, BY HAND, HIM SUPPER. HE CAN FEED HIMSELF BUT SHE DID IT FOR HIM. HE IS VERY UNSTEADY ON HIS FEET. CALL LIGHT IN REACH
--- NOTE | 2018-11-09 19:31 | NUR ---
PT RESTING IN BED WITH EYES OPEN. ALERT AND ORIENTED X 3. DENIES ACUTE PAIN OR DISCOMFORT AT THIS TIME. PTS IS AT BEDSIDE. VSS. O2 IS ON @ 2LPM PER NC. NO SOB NOTED. LEFT ARM FISTULA NOTED WITH GOOD BRUITT AND THRILL. MEPILEX DRESSING TO BUTTOCK IS CDI. SR'S ARE UP X 2 IN BED. CALL LIGHT AND BEDSIDE TABLE ARE WITHIN EASY REACH.
--- NOTE | 2018-11-09 22:11 | NUR ---
PT RESTING IN BED WITH EYES CLOSED. NO ACUTE DISTRESS NOTED.
[2018-11-10 00:18] VITALS: BP 112/64
--- NOTE | 2018-11-10 00:25 | NUR ---
RESTING IN BED WITH EYES CLOSED. IV ABX INFUSING.
--- NOTE | 2018-11-10 05:38 | NUR ---
RESTING IN BED WITH NO DISTRESS NOTED. RESPIRATIONS UNLABORED. CALL LIGHT IN REACH.
--- NOTE | 2018-11-10 08:21 | NUR ---
SLEEPING IN BED, EYES CLOSED, MOUTH OPEN, OXYGEN IN PLACE. NO S/S DISTRESS. IS HARD TO WAKE UP EACH MORNING. IT TAKES A FEW MINUTES FOR HIM TO WAKE UP AND MAKE SENSE WHEN TALKING. HE IS ORIENTED X4. CALL LIGHT IN REACH. FEEDS HIMSELF MEALS
[2018-11-10 12:25] VITALS: BP 125/58
--- NOTE | 2018-11-10 14:12 | NUR ---
SPEEPING QUIETLY IN BED. HEAD OF BED ELEVATED. HAS OXYGEN IN PLACE. SLOW TO ANSWER AND FOLLOW SIMPLE COMMANDS. IN ROOM WITH PT
--- NOTE | 2018-11-10 16:12 | NUR ---
IN ROOM WITH PT. HE IS RESTING IN BED WITH EYES CLOSED. NO S/S DISTRESS. CALL LIGHT IN REACH
[2018-11-10 18:10] VITALS: BP 109/55
[2018-11-10 19:00] VITALS: BP 109/55
--- NOTE | 2018-11-10 19:15 | NUR ---
PT IS RESTING IN BED WITH EYES CLOSED. RESPS ARE SHALLOW, EVEN AND UNLABORED. NO ACUTE DISTRESS NOTED. O2 IS ON @ 2LPM PER NC. RIGHT WRIST SALINE LOCK NOTED. LEFT ARM FISTULA HAS GOOD BRUITT AND THRILL. SR'S ARE UP X 3 IN BED. CALL LIGHT AND BEDSIDE TABLE ARE WITHIN EASY REACH.
--- NOTE | 2018-11-10 21:55 | NUR ---
RESTING IN BED WITH EYES CLOSED.
--- NOTE | 2018-11-10 22:05 | NUR ---
PATIENT SLEEPING AT THIS TIME. WILL CONTINUE TO MONITOR.
--- NOTE | 2018-11-11 02:24 | NUR ---
RESTING IN BED WITH EYES CLOSED.
[2018-11-11 06:07] VITALS: BP 111/60
[2018-11-11 07:38] LABS: BASOPHILS 0.2 % (0-2); EOSINOPHILS 3.6 % (0-7); HEMATOCRIT 27.9 % (42.0-54.0); HEMOGLOBIN 8.7 g/dL (13.5-17.5); IMMATURE GRANULOCYTES 0.7 % (0-5); LYMPHOCYTES 5.7 % (15-50); MCH 27.2 pg (26.0-34.0); MCHC 31.2 g/dL (31.0-37.0); MCV 87.2 fL (80.0-100.0); MEAN PLATELET VOLUME 10.5 fL (7.4-10.4); MONOCYTES 11.7 % (2-11); NEUTROPHILS 78.1 % (40-80); PLATELET COUNT 168 10x3/uL (130-400); RDW 15.5 % (11.5-14.5); WBC 12.1 10x3/uL (4.8-10.8)
[2018-11-11 07:45] LABS: ANION GAP 18.7 mmol/L (8-16); CALCIUM 9.1 mg/dL (8.5-10.1); CARBON DIOXIDE 27.4 mmol/L (21.0-32.0); CREATININE - SERUM 7.5 mg/dL (0.6-1.3); POTASSIUM - SERUM 4.1 mmol/L (3.5-5.1)
--- NOTE | 2018-11-11 10:11 | NUR ---
SITTING IN WC IN ROOM WATCHING TV. NOT WEARING OXYGEN. SATS IN HIGH 90'S. STILL C/O CHEST INCISION PAIN. F/C DRAINING CLOUDY URINE. CALL LIGHT IN REACH
[2018-11-11 11:58] VITALS: BP 106/53
--- NOTE | 2018-11-11 14:32 | NUR ---
LEAVING FLOOR TO GO TO DIALYSIS
--- NOTE | 2018-11-11 19:31 | NUR ---
PT IS RESTING IN WC AT BEDSIDE VISITING WITH HIS . IV ABX ARE INFUSING TO RIGHT WRIST IV WITHOUT DIFFICULTY. PT ASSISTED TO LAY DOWN IN BED WITH MOD ASSIST. PTS GAIT IS VERY UNSTEADY. HE IS ALERT TO SELF, BUT CONFUSED TO TIME AND PLACE. MEPILEX DRESSING TO COCCYX IS CDI. O2 IS ON @ 2LPM PER NC. SR'S ARE UP X 2 IN BED. CALL LIGHT AND BEDSIDE TABLE ARE WITHIN EASY REACH.
[2018-11-11 20:51] VITALS: BP 121/62
--- NOTE | 2018-11-11 21:47 | NUR ---
PT JUST FINISHING UP A SHOWER WITH THE TRAFFIC LAW ATTORNEY. NO NEEDS VOICED.
[2018-11-12 00:01] VITALS: BP 110/57
--- NOTE | 2018-11-12 02:23 | NUR ---
RESTING IN BED WITH RESPIRATIONS UNLABORED. NO DISTRESS NOTED. CALL LIGHT IN REACH.
--- NOTE | 2018-11-12 05:48 | NUR ---
PT RESTING IN BED WITH EYES OPEN. NO NEEDS VOICED.
[2018-11-12 06:18] VITALS: BP 110/59
--- NOTE | 2018-11-12 08:00 | NUR ---
SHIFT ASSMT COMPLETED.BREAKFAST GIVEN.DENIES NEEDS.
[2018-11-12 11:58] VITALS: BP 119/60
--- NOTE | 2018-11-12 12:00 | NUR ---
SITTING UP IN WC FOR LUNCH. AT BEDSIDE.
[2018-11-12 18:00] VITALS: BP 112/52
[2018-11-13 01:49] VITALS: BP 118/62
--- NOTE | 2018-11-13 03:34 | NUR ---
PT IN BED LOWEST POSITION, EYES CLOSED OPENS EASILY TO VOICE, RESPIRATIONS SLOW AND EVEN, NO NEEDS NOTED, FLUIDS AND CALL LIGHT WITHIN REACH
[2018-11-13 07:23] LABS: BASOPHILS 0.3 % (0-2); EOSINOPHILS 2.9 % (0-7); HEMATOCRIT 24.5 % (42.0-54.0); HEMOGLOBIN 7.7 g/dL (13.5-17.5); IMMATURE GRANULOCYTES 0.7 % (0-5); MCH 27.4 pg (26.0-34.0); MCHC 31.4 g/dL (31.0-37.0); MCV 87.2 fL (80.0-100.0); MEAN PLATELET VOLUME 9.9 fL (7.4-10.4); MONOCYTES 10.6 % (2-11); NEUTROPHILS 74.5 % (40-80); PLATELET COUNT 162 10x3/uL (130-400); RBC 2.81 10x6/uL (4.20-6.10); RDW 15.7 % (11.5-14.5); WBC 9.4 10x3/uL (4.8-10.8)
[2018-11-13 07:41] LABS: ANION GAP 16.2 mmol/L (8-16); CALCIUM 9.5 mg/dL (8.5-10.1); CREATININE - SERUM 6.4 mg/dL (0.6-1.3); POTASSIUM - SERUM 4.2 mmol/L (3.5-5.1)
[2018-11-13 08:00] VITALS: BP 108/54
--- NOTE | 2018-11-13 08:00 | NUR ---
SHIFT ASSMT COMPLETED.
[2018-11-13 11:17] LABS: HEPATITIS C ANTIBODY 0.1 S/CO RAT (0.0-0.9)
[2018-11-13 11:54] VITALS: BP 109/52
--- NOTE | 2018-11-13 12:00 | NUR ---
SITTING UP EATING LUNCH.
--- NOTE | 2018-11-13 13:30 | NUR ---
TO HD/WC.
--- NOTE | 2018-11-13 16:30 | NUR ---
BACK FROM HD.CL IN REACH.
[2018-11-13 18:11] VITALS: BP 127/65
--- NOTE | 2018-11-13 23:36 | NUR ---
PT IN BED LOW POSITION, WATCHING TV. RESPIRATIONS EVEN AND UNLABORED, NO NEEDS NOTED, FLUIDS AND CALL LIGHT WITHIN REACH
[2018-11-14] VITALS: BP 115/59
[2018-11-14 03:15] VITALS: BP 115/59
[2018-11-14 06:00] VITALS: BP 115/51
--- NOTE | 2018-11-14 08:21 | NUR ---
WAS SLEEPING DEEPLY. TOOK LOUD VERBAL STEMULI TO WAKE HIM UP FOR BREAKFAST. SPEECH WAS MUMBLING. HE FED HIMSELF A LITTLE BREAKFAST BUT DENIES BEING HUNGRY. OXYGEN IN PLACE AT 2LNC. CALL LIGHT IN REACH
[2018-11-14 12:20] VITALS: BP 107/50
--- NOTE | 2018-11-14 12:31 | NUR ---
SITTING UP IN WC IN ROOM FOR LUNCH. ATE VERY LITTLE. IN ROOM. HE DOES NOT FEEL GOOD TODAY. IS SLUGGISH. OXYGEN IN PLACE. DENIES PAIN.
--- NOTE | 2018-11-14 12:50 | NUR ---
Nutrition Follow Up: Chart reviewed Diet: Renal Mech Soft; Nepro TID PO Intake: 69% meal avg - improving BM: 11/12/18 Labs reviewed Meds noted including Lasix Rec continue current diet, supplement regimen. RD following.
--- NOTE | 2018-11-14 15:13 | NUR ---
SITTING UP IN WC. SLOW TO ANSWER QUESTIONS OR FOLLOW COMMANDS. DENIES NEEDS OR C/O
--- NOTE | 2018-11-14 18:01 | NUR ---
SITTING UP IN WC IN ROOM. IN ROOM WITH HIM. HE ATE VERY LITTLE FOR SUPPER. STILL ACTING SLUGGISH AND TIRED.
[2018-11-14 18:17] VITALS: BP 121/62
[2018-11-15 00:38] VITALS: BP 104/46
--- NOTE | 2018-11-15 00:48 | NUR ---
PT IN BED LOWEST POSITION, EYES CLOSED AROUSES EASILY TO VOICE, RESPIRATIONS EVEN AND UNLABORED, NO NEEDS NOTED, FLUIDS AND CALL LIGHT WITHIN REACH
[2018-11-15 07:45] LABS: BASOPHILS 0.2 % (0-2); EOSINOPHILS 2.3 % (0-7); HEMATOCRIT 24.2 % (42.0-54.0); HEMOGLOBIN 7.6 g/dL (13.5-17.5); IMMATURE GRANULOCYTES 1.2 % (0-5); LYMPHOCYTES 12.1 % (15-50); MCHC 31.4 g/dL (31.0-37.0); MCV 86.1 fL (80.0-100.0); MEAN PLATELET VOLUME 10.4 fL (7.4-10.4); MONOCYTES 10.5 % (2-11); NEUTROPHILS 73.7 % (40-80); PLATELET COUNT 173 10x3/uL (130-400); RBC 2.81 10x6/uL (4.20-6.10); RDW 15.8 % (11.5-14.5); WBC 8.6 10x3/uL (4.8-10.8)
[2018-11-15 07:55] LABS: ANION GAP 16.3 mmol/L (8-16); CALCIUM 10.1 mg/dL (8.5-10.1); CREATININE - SERUM 6.7 mg/dL (0.6-1.3); POTASSIUM - SERUM 4.3 mmol/L (3.5-5.1)
[2018-11-15 12:06] VITALS: BP 108/47
--- NOTE | 2018-11-15 15:04 | NUR ---
PATIENT ADMITTED TO REHAB FROM ACUTE FLOOR. DR. CONTRERAS IS HIS PCP AND DME AT HOME IS A WALKER. DISCHARGE PLANS ARE FOR PATIENT TO RETURN HOME BUT IF UNABLE SPOUSE WOULD LIKE A REFERRAL MADE TO [facility]. WILL CONTINUE TO FOLLOW WITH PATIENT.
--- NOTE | 2018-11-15 16:58 | NUR ---
BACK FROM DIALYSIS.
[2018-11-15 18:00] VITALS: BP 100/53
--- NOTE | 2018-11-15 19:36 | NUR ---
PT IS RESTING IN BED WITH EYES OPEN. ASSISTED TO THE BATHROOM WITH MOD ASSIST. LARGE BM NOTED. PT ASSISTED BACK TO BED. HE IS ORIENTED TO SELF, BUT CONFUSED TO TIME AND PLACE. LEFT AVF FISTULA NOTED WITH GOOD BRUITT AND THRILL. SR'S ARE UP X 2 IN BED. CALL LIGHT AND BEDSIDE TABLE ARE WITHIN EASY REACH.
[2018-11-15 20:00] VITALS: BP 109/46
--- NOTE | 2018-11-15 22:03 | NUR ---
PT IS RESTING QUIETLY IN BED WITH EYES CLOSED. RESPS ARE EVEN AND UNLABORED. NO ACUTE DISTRESS NOTED.
[2018-11-15 23:58] VITALS: BP 108/48
--- NOTE | 2018-11-16 00:49 | NUR ---
RESTING IN BED WITH EYES CLOSED AND RESPIRATIONS UNLABORED. LEFT LEG IMMOBILZER IN PLACE. NO ACUTE DISTRESS NOTED. CALL LIGHT IN REACH.
--- NOTE | 2018-11-16 01:30 | NUR ---
PT RESTING IN BED WITH EYES CLOSED.
--- NOTE | 2018-11-16 05:13 | NUR ---
PT RESTING IN BED WITH EYES CLOSED.
[2018-11-16 06:11] VITALS: BP 120/55
--- NOTE | 2018-11-16 08:00 | NUR ---
SHIFT ASSMT COMPLETED.BREAKFAST GIVEN.CL IN REACH.
--- NOTE | 2018-11-16 12:00 | NUR ---
ALANA SHOWER AND LASHAE.UP IN WC.LUNCH GIVEN.CL IN REACH. VISITING.
[2018-11-16 12:10] VITALS: BP 119/56
[2018-11-16 18:00] VITALS: BP 112/48
--- NOTE | 2018-11-16 19:25 | NUR ---
PT IS RESTING QUIETLY IN BED WITH EYES CLOSED. NO ACUTE DISTRESS NOTED.
--- NOTE | 2018-11-16 21:08 | NUR ---
PATIENT SLEEPING AT THIS TIME. WILL CONTINUE TO MONTIOR.
--- NOTE | 2018-11-16 22:06 | NUR ---
PT IS RESTING IN BED WITH EYES CLOSED.
[2018-11-17 00:26] VITALS: BP 123/75
--- NOTE | 2018-11-17 00:29 | NUR ---
RESTING IN BED WITH EYES CLOSED.
--- NOTE | 2018-11-17 03:30 | NUR ---
RESTING IN BED WITH EYES CLOSED.
[2018-11-17 05:56] VITALS: BP 112/74
--- NOTE | 2018-11-17 06:19 | NUR ---
PT RESTING QUIETLY IN BED WITH EYES CLOSED. RESPS ARE EVEN AND UNLABORED. NO ACUTE DISTRESS NOTED.
--- NOTE | 2018-11-17 08:00 | NUR ---
SHIFT ASSMT COMPLETED.
--- NOTE | 2018-11-17 12:00 | NUR ---
UP IN WC EATING LUNCH.
[2018-11-17 12:29] VITALS: BP 124/49
--- NOTE | 2018-11-17 13:00 | NUR ---
PLACED BACK ON O2@2L/NC D/T SATS DROPPED TO 88% WHILE OFF O2 DURING SLEEP.
[2018-11-17 18:07] VITALS: BP 124/57
--- NOTE | 2018-11-17 19:55 | NUR ---
PT IS RESTING IN BED WITH EYES OPEN. ALERT AND ORIENTED X 2. CONFUSED TO TIME, BUT REORIENTED EASILY. PT DENIES ACUTE PAIN OR DISCOMFORT AT THIS TIME. NO NEEDS VOICED. LEFT AVF HAS GOOD BRUITT AND THRILL. SR'S ARE UP X 2 IN BED. CALL LIGHT AND BEDSIDE TABLE ARE WITHIN EASY REACH.
--- NOTE | 2018-11-17 22:10 | NUR ---
PATIENT RESTING QUIETLY IN BED WATCHING TV. RESPIRATIONS EVEN. NO S/S OF DISTRESS. SR UP X 2. BED IN LOWEST POSITION. CALL LIGHT IN REACH.
[2018-11-18 00:01] VITALS: BP 115/74
--- NOTE | 2018-11-18 02:00 | NUR ---
RESTING QUIETLY IN BED WITH EYES CLOSED. RESPS ARE EVEN AND UNLABORED. NO ACUTE DISTRESS NOTED.
--- NOTE | 2018-11-18 04:30 | NUR ---
RESTING IN BED WITH EYES CLOSED.
[2018-11-18 05:40] VITALS: BP 116/84
[2018-11-18 07:44] LABS: ANION GAP 18.3 mmol/L (8-16); CALCIUM 10.1 mg/dL (8.5-10.1); CARBON DIOXIDE 25.9 mmol/L (21.0-32.0); CREATININE - SERUM 6.4 mg/dL (0.6-1.3); POTASSIUM - SERUM 4.2 mmol/L (3.5-5.1)
[2018-11-18 08:02] LABS: BASOPHILS 0.2 % (0-2); EOSINOPHILS 0.6 % (0-7); HEMATOCRIT 21.3 % (42.0-54.0); IMMATURE GRANULOCYTES 1.1 % (0-5); LYMPHOCYTES 9.2 % (15-50); MCH 27.4 pg (26.0-34.0); MCHC 31.9 g/dL (31.0-37.0); MCV 85.9 fL (80.0-100.0); MEAN PLATELET VOLUME 9.8 fL (7.4-10.4); NEUTROPHILS 80.9 % (40-80); PLATELET COUNT 193 10x3/uL (130-400); RBC 2.48 10x6/uL (4.20-6.10); RDW 16.5 % (11.5-14.5); WBC 9.4 10x3/uL (4.8-10.8)
[2018-11-18 08:08] LABS: HEMOGLOBIN 6.8 g/dL (13.5-17.5)
[2018-11-18 11:42] VITALS: BP 113/43
--- NOTE | 2018-11-18 13:35 | NUR ---
RESTING QUIETLY IN BED. CALL LIGHT IN REACH
--- NOTE | 2018-11-18 17:19 | NUR ---
STILL IN DIALYSIS
[2018-11-18 18:13] VITALS: BP 109/56
--- NOTE | 2018-11-18 20:00 | NUR ---
PT IS RESTING IN BED WITH EYES OPEN. ALERT TO SELF AND ROOM. DENIES ACUTE DISCOMFORT AT THIS TIME. PT ASSISTED TO THE BATHROOM WITH MOD ASSIST STATING HE HAD TO VOID. PT STATED HE HAD A BM WHILE IN THE BATHROOM, BUT IT WAS FLUSHED, SO I WAS UNABLE TO COLLECT GUIAC AT THIS TIME. ASSISTED BACK TO BED. CALL LIGHT AND BEDSIDE TABLE ARE WITHIN EASY REACH. BED ALARM IS ON.
--- NOTE | 2018-11-19 00:01 | NUR ---
PT UP TO BATHROOM. NO FURTHER NEEDS VOICED.
[2018-11-19 00:47] VITALS: BP 115/78
--- NOTE | 2018-11-19 02:10 | NUR ---
RESTING IN BED WITH EYES CLOSED.
[2018-11-19 05:32] VITALS: BP 127/78
--- NOTE | 2018-11-19 06:02 | NUR ---
PT RESTING IN BED WITH EYES OPEN. NO NEEDS VOICED.
[2018-11-19 11:56] VITALS: BP 110/47
[2018-11-19 17:50] VITALS: BP 111/51
--- NOTE | 2018-11-19 17:59 | NUR ---
PT RESTING IN BED WITH EYES OPEN CALL LIGHT IN REACH WILL MONITER
--- NOTE | 2018-11-19 18:44 | NUR ---
IN ROOM WITH PT. HE HAS BEEN COOPERATIVE AND PLEASANT TODAY. STILL CONFUSED. HIS APPETITE IS IMPROVED.
--- NOTE | 2018-11-19 21:48 | NUR ---
REST IN BED, DENIES NEEDS AT THIS TIME. CALL LIGHT IN REACH.
[2018-11-19 22:12] VITALS: BP 119/56
--- NOTE | 2018-11-20 00:09 | NUR ---
PT REST QUIETLY IN BED, EYE CLOSE, BED LOW, CALL LIGHT IN REACH.
[2018-11-20 00:44] VITALS: BP 110/47
--- NOTE | 2018-11-20 04:12 | NUR ---
REST QUIELTY IN BED, CALL LIGHT IN REACH.
[2018-11-20 06:21] VITALS: BP 122/47
[2018-11-20 07:34] LABS: BASOPHILS 0.3 % (0-2); EOSINOPHILS 1.7 % (0-7); HEMATOCRIT 25.2 % (42.0-54.0); IMMATURE GRANULOCYTES 0.7 % (0-5); LYMPHOCYTES 11.3 % (15-50); MCH 27.8 pg (26.0-34.0); MCHC 31.7 g/dL (31.0-37.0); MCV 87.5 fL (80.0-100.0); MEAN PLATELET VOLUME 9.5 fL (7.4-10.4); PLATELET COUNT 177 10x3/uL (130-400); RBC 2.88 10x6/uL (4.20-6.10); RDW 16.4 % (11.5-14.5); WBC 9.5 10x3/uL (4.8-10.8)
[2018-11-20 07:44] LABS: ANION GAP 18.2 mmol/L (8-16); CALCIUM 10.1 mg/dL (8.5-10.1); CARBON DIOXIDE 25.9 mmol/L (21.0-32.0); CREATININE - SERUM 5.3 mg/dL (0.6-1.3); POTASSIUM - SERUM 4.1 mmol/L (3.5-5.1)
--- NOTE | 2018-11-20 08:00 | NUR ---
SHIFT ASSMT COMPLETED.
--- NOTE | 2018-11-20 12:00 | NUR ---
SITTING UP EATING LUNCH.
[2018-11-20 12:01] VITALS: BP 125/65
--- NOTE | 2018-11-20 14:25 | NUR ---
TO HD/WC.
[2018-11-20 17:45] VITALS: BP 126/65
--- NOTE | 2018-11-20 17:45 | NUR ---
RETURNED FROM HD/WC TO ROOM.SITTING UP FOR SUPPER.
[2018-11-20 18:00] VITALS: BP 105/49
--- NOTE | 2018-11-20 19:25 | NUR ---
GREETED PATIENT AND INTRODUCED MYSELF. ASSISTED PATIENT BACK TO BED FROM WHEELCHAIR. REPOSITIONED FOR COMFORT. DENIES ANY FURTHER NEEDS AT THIS TIME. CALL LIGHT IN REACH.
[2018-11-21 00:15] VITALS: BP 126/58
--- NOTE | 2018-11-21 01:26 | NUR ---
PATIENT RESTING QUIETLY WITH EYES CLOSED LAYING IN SUPINE POSITION. HOB AT 20 DEGREES. O2 AT 2L IN USE VIA NC. RESPIRATIONS EVEN. NO S/S OF DISTRESS. SR UP X 2. BED IN LOWEST POSITION. CALL LIGHT IN REACH.
[2018-11-21 06:00] VITALS: BP 132/57
--- NOTE | 2018-11-21 08:00 | NUR ---
UP OOB FOR BREAKFAST. AT BEDSIDE.
[2018-11-21 11:01] LABS: BASOPHILS 0.3 % (0-2); EOSINOPHILS 1.3 % (0-7); HEMATOCRIT 27.4 % (42.0-54.0); HEMOGLOBIN 8.7 g/dL (13.5-17.5); IMMATURE GRANULOCYTES 0.7 % (0-5); LYMPHOCYTES 9.2 % (15-50); MCH 28.3 pg (26.0-34.0); MCHC 31.8 g/dL (31.0-37.0); MCV 89.3 fL (80.0-100.0); MEAN PLATELET VOLUME 9.7 fL (7.4-10.4); MONOCYTES 6.9 % (2-11); NEUTROPHILS 81.6 % (40-80); PLATELET COUNT 200 10x3/uL (130-400); RBC 3.07 10x6/uL (4.20-6.10); RDW 16.7 % (11.5-14.5); WBC 9.8 10x3/uL (4.8-10.8)
--- NOTE | 2018-11-21 11:30 | NUR ---
REFERRAL HAS BEEN FAXED TO THE [facility] FOR POSSIBLE ADDMISSION PER SPOUSE REQUEST.WILL CONTINUE TO FOLLOW WITH PATIENT.
[2018-11-21 12:00] VITALS: BP 115/56
--- NOTE | 2018-11-21 12:00 | NUR ---
EATING LUNCH.SITTING UP IN WC.
--- NOTE | 2018-11-21 16:00 | NUR ---
REMAINS UP IN WC.CL IN REACH.
[2018-11-21 18:00] VITALS: BP 109/52; BP 122/50
--- NOTE | 2018-11-21 20:04 | NUR ---
PATIENT RESTING QUIETLY WATCHING TV. DENIES ANY NEEDS AT THIS TIME. CALL LIGHT IN REACH.
[2018-11-22] VITALS: BP 122/49
--- NOTE | 2018-11-22 02:51 | NUR ---
PATIENT RESTING QUIETLY WITH EYES CLOSED. O2 AT 2L IN USE VIA NC. RESPIRATIONS EVEN. NO S/S OF DISTRESS. SR UP X 2. BED IN LOWEST POSITION. CALL LIGHT IN REACH.
[2018-11-22 06:00] VITALS: BP 122/59
[2018-11-22 08:59] LABS: BASOPHILS 0.3 % (0-2); EOSINOPHILS 1.3 % (0-7); HEMATOCRIT 25.4 % (42.0-54.0); HEMOGLOBIN 7.9 g/dL (13.5-17.5); IMMATURE GRANULOCYTES 0.7 % (0-5); LYMPHOCYTES 8.3 % (15-50); MCH 27.7 pg (26.0-34.0); MCHC 31.1 g/dL (31.0-37.0); MCV 89.1 fL (80.0-100.0); MEAN PLATELET VOLUME 9.4 fL (7.4-10.4); MONOCYTES 6.2 % (2-11); NEUTROPHILS 83.2 % (40-80); PLATELET COUNT 184 10x3/uL (130-400); RBC 2.85 10x6/uL (4.20-6.10); RDW 16.6 % (11.5-14.5); WBC 11.6 10x3/uL (4.8-10.8)
--- NOTE | 2018-11-22 10:07 | NUR ---
PATIENT DISCHARGING TO THE [facility] . NO DME OR HOME HEALTH NEEDED AT THIS TIME. AN APPOINTMENT WITH DR. ZULETA WILL BE MADE AT TIME OF DSICHARGE FROM FACILITY. PATIENT WILL HAVE HD ON ./ ./ SAT. AT 11:[address] MCCORMACK ON HD DAYS. PATIENT CHOICE FORM AND IMFM FORMS SIGNED, COPY GIVEN TO SPOUSE AND FILED IN CHART. DISCHARGE INSTRUCTIONS WITH FIM DATA FAXED TO PCP, SNF AND REVIEWED WITH SPOUSE AND PATIENT.
--- NOTE | 2018-11-22 13:11 | NUR ---
BACK FROM DIALYSIS. SITTING UP IN WC IN ROOM EATING LUNCH. STILL CONFUSED AND WEARING OXYGEN 2L NC. 110/57,78,98.1
== END 2018-11-22 15:00 | DRG 91 ==
LOC: D.REHAB 14:34
PROVIDERS: Internal Medicine; Internal Medicine Nephrology; ADMIT Emergency Medicine; ATTEND Emergency Medicine
DX: G92 Toxic encephalopathy (principal); N18.6 End stage renal disease; N17.9 Acute kidney failure, unspecified; N39.0 Urinary tract infection, site not specified; I12.0 Hypertensive chronic kidney disease with stage 5 chronic kidney disease or end stage renal disease; N32.0 Bladder-neck obstruction; R13.12 Dysphagia, oropharyngeal phase; N30.90 Cystitis, unspecified without hematuria; Z99.2 Dependence on renal dialysis; E83.39 Other disorders of phosphorus metabolism; D63.1 Anemia in chronic kidney disease; E87.6 Hypokalemia

== ENCOUNTER 2018-12-02 16:16 | Inpatient (IN) | payer MEDICARE, OTHER ==
[~2018-12-02] VITALS: Ht 175.3 cm; Wt 80.3 kg
[2018-12-02 16:18] VITALS: BP 129/62
[2018-12-02 17:01] VITALS: BP 123/69
--- NOTE | 2018-12-02 17:09 | NUR ---
PT LAYING IN BED. RESPIRATIONS ARE EVEN AND UNLABORED. PT RECEIVING O2 VIA NC AT 2L. VSS. 02 SAT 92% FAMILY AT BEDSIDE. COLOR WNL FOR RACE.
[2018-12-02 17:37] LABS: BASOPHILS 0.4 % (0-2); EOSINOPHILS 0.2 % (0-7); HEMATOCRIT 25.8 % (42.0-54.0); HEMOGLOBIN 7.8 g/dL (13.5-17.5); IMMATURE GRANULOCYTES 0.7 % (0-5); LYMPHOCYTES 7.6 % (15-50); MCH 27.5 pg (26.0-34.0); MCHC 30.2 g/dL (31.0-37.0); MCV 90.8 fL (80.0-100.0); MEAN PLATELET VOLUME 9.6 fL (7.4-10.4); MONOCYTES 7.6 % (2-11); NEUTROPHILS 83.5 % (40-80); PLATELET COUNT 195 10x3/uL (130-400); RBC 2.84 10x6/uL (4.20-6.10); WBC 8.4 10x3/uL (4.8-10.8)
[2018-12-02 17:45] LABS: ALBUMIN 3.1 g/dL (3.4-5.0); ANION GAP 12.4 mmol/L (8-16); BILIRUBIN - TOTAL 0.43 mg/dL (0.2-1.3); CALCIUM 9.5 mg/dL (8.5-10.1); CARBON DIOXIDE 30.4 mmol/L (21.0-32.0); CREATININE - SERUM 5.5 mg/dL (0.6-1.3); POTASSIUM - SERUM 4.8 mmol/L (3.5-5.1)
[2018-12-02 20:40] VITALS: BP 125/51; BMI 26.2
[2018-12-02 20:44] VITALS: BP 125/51
--- NOTE | 2018-12-02 20:55 | NUR ---
RECIEVED REPORT FROM HAYLEE RN IN ER. ARRIVED TO FLOOR ON STRETCHER. REQUIRED 4 STAFF TO TRANSFER TO BED. VERY HARD TO AROUSE. DOES NOT ANSWER QUESTIONS OR FOLLOW COMMANDS. KEEPS EYES CLOSED. SPOUSE AT BEDSIDE ANSWERS QUESTIONS. PT [place] AND NO RECORDS TO INDICATE LAST DOSE ON MEDICATIONS. AVF TO LEFT ARM WITH GOOD BRUIT AND TRILL. LARGE BRUSE ON UPPER LEFT ARM, PURPLE AND RE IN COLOR. LUNG SOUNDS CRACKLES THOUGH OUT ALL LUNG RODRIGUEZ. IV TO RIGHT WRIST WITH ABT INFUSING AT THIS TIME. NO S/S OF DISTRESS OBSERVED. O2@ 4 LITERS PER N/C AND RT CALLED AND ASSESSED PT. CARLOS RAMAN NOTIFIED OF ADMISSION AND DR. BANSAL DOING ROUNDS AND AWARE. FAMILY LEFT AND STATED WILL BE BACK.
[2018-12-03 00:45] VITALS: BP 134/57
[2018-12-03 06:02] LABS: BASOPHILS 0.2 % (0-2); EOSINOPHILS 0.3 % (0-7); HEMATOCRIT 26.5 % (42.0-54.0); IMMATURE GRANULOCYTES 1.5 % (0-5); LYMPHOCYTES 6.2 % (15-50); MCH 27.7 pg (26.0-34.0); MCHC 30.2 g/dL (31.0-37.0); MCV 91.7 fL (80.0-100.0); MEAN PLATELET VOLUME 9.7 fL (7.4-10.4); MONOCYTES 8.2 % (2-11); NEUTROPHILS 83.6 % (40-80); PLATELET COUNT 180 10x3/uL (130-400); RBC 2.89 10x6/uL (4.20-6.10); RDW 17.3 % (11.5-14.5); WBC 8.9 10x3/uL (4.8-10.8)
[2018-12-03 06:22] LABS: ANION GAP 16.4 mmol/L (8-16); CALCIUM 9.4 mg/dL (8.5-10.1); CARBON DIOXIDE 27.8 mmol/L (21.0-32.0); CREATININE - SERUM 6.2 mg/dL (0.6-1.3); MAGNESIUM - SERUM 2.2 mg/dL (1.8-2.4); PHOSPHOROUS 7.8 mg/dL (2.5-4.9); POTASSIUM - SERUM 5.2 mmol/L (3.5-5.1); VANCOMYCIN - RANDOM 13.5 ug/mL (10.0-20.0)
[2018-12-03 06:39] VITALS: BP 128/60
[2018-12-03 07:45] VITALS: BP 126/62
--- NOTE | 2018-12-03 07:50 | NUR ---
INITIAL ROUNDING, PATINE IS SLEEPING WITH BIPAP IN PLACE, SPOUSE AT THE BEDSIDE, PLANS TO LET THE PATIENT SLEEP LONG POSSIBLE WITH BIPAP, SKIN CARE SPECIALIST RN REPORTED HE WAS AWAKE, CONFUSED, COMBATIVE LAST NIGHT FOR MOST OF HER SHIFT. WILL CONT TO MONITOR
--- NOTE | 2018-12-03 10:15 | NUR ---
DIALYSIS CALLED AND WAS INFORMED THE PATIENT BEING ON BIPAP AND NEEDS TO BE ON BIPAP PER THE RT AND DR. DELAROSA, NURSE IN DIALYSIS, STATED "OK, I WILL HAVE TO DO HIM LATER"
--- NOTE | 2018-12-03 11:24 | NUR ---
1000- BIPAP PER DR. AMEZCUA IS NOW 16 AND 40%
[2018-12-03 11:44] VITALS: BP 112/51
--- NOTE | 2018-12-03 13:12 | NUR ---
DR EBONI AMADORK STATING THEY NEED ANESTHESIA CALLED FOR THE RAPID RESPONSE TO INTUBATE THE PATIENT BECAUSE DR AMEZCUA COULD NOT COME AND DO IT. CALL PLACED TO SURGERY AT 2326 AND SPOKE WITH JUAN. SHE WILL SEND ANESTHESIA OVER.
--- NOTE | 2018-12-03 13:18 | MORECARE ---
CASE MANAGEMENT DISCHARGE SUMMARY PATIENT: Tien BATISTA UNIT: [id number] ADM DATE: 12/02/18 AGE: 78 : 38 SEX: M ROOM/BED: D.9587 AUTHOR: NISHANT VICK PHYSICIAN: REFERRING PHYSICIAN: KEVIN BANSAL MD DATE OF SERVICE: 12/03/18 Discharge Plan Patient Name: Tien BATISTA Facility: [facility]:[place] : 1940 Planned Disposition: Anticipated Discharge Date: Discharge Date: Expected LOS: Initial Reviewer: [id number] Initial Review Date: 12/02/2018 Generated: 12/03/18 2:18 pm Comments DCP- Discharge Planning Updated by [email or web address]: Ambrosio Lynn on 12/03/18 12:[address] Patient Name: Tien BATISTA Encounter No: [id number] : 1940 Primary Insurance: MEDICARE A & B Anticipated DC Date: Planned Disposition: DISCHARGE PLANNING NOTE: CM UNABLE TO ASSESS PT DUE TO RAPID RESPONSE AT THIS TIME. CM TO ATTEMPT ASSESSMENT OF PT AT A LATER TIME. Ambrosio Lynn, CASE MANAGEMENT Patient Name: Tien BATISTA Page [phone] at 1318 All edits/amendments must be made on the electronic document DICTATION DATE: 12/03/18 1318 AUTOMATIC FABRIC CUTTER: KIMBERLY 12/03/18 1318 RPT#: [id number] DC DATE: STATUS: ADM IN [facility] [address] [place] [address] END OF REPORT
[2018-12-03 13:24] VITALS: Ht 175.3 cm; Wt 80.3 kg
--- NOTE | 2018-12-03 15:02 | NUR ---
THE SPOUSE AND DAUGHTER CALLED THIS NURSE TO THE ROOM,. SHE STATES"JUST TAKE THAT OFF, I DONT THINK HE WOULD WANT THAT" SPOUSE AND FAMILY INSTRUCTED ON THE POSSIBLE OUTCOME INCLUDING . THE SPOUSE WAS ASKED ABOUT HOSPICE AND SHE PROMPTLY DECLINED THOSE SERVICES STATING "I HAVE DELT WITH THEM IN THE PAST, I DONT WANT TO DO THAT AGAIN. YOU LADIES ARE DOING A FINE JOB, JUST KEEP IT UP" RT WAS NOTIFIED AND CAME AND REMOVED THE BIPAP. THE SPOUSE REFUSED DIALYSIS TODAY, AND WAS ALSO INSTRUCTED ON THE POSSIBLE OUTCOME, SHE STATED SHE UNDERSTOOD. NURSE MED PEDS WAS NOTIFIED.
--- NOTE | 2018-12-03 15:52 | NUR ---
SPOKE WITH PT PRIMARY NURSE, AND WAS INFORMED OF PT STATUS AND FAMILIES WISHES. CALLED DR KATZ TO LET HIM KNOW THAT FAMILY WANTS COMFORT CARE AND REFUSED DIALYSIS. HAVE ALSO TAKEN BIPAP OFF, AND PT HAS O2@4L/NC.
--- NOTE | 2018-12-03 16:01 | NUR ---
REFUSED SCD'S PER MARCIAL/RN
[2018-12-03 17:48] VITALS: BP 135/64
--- NOTE | 2018-12-03 18:33 | NUR ---
IV REMOVED FROM THE RIGHT FAZELAL[place] LPN ATTEMPTED 3 TIME TO RESTART IV TO THE LEFT ARM.
--- NOTE | 2018-12-03 19:35 | NUR ---
ASSESSMENT COMPLETE, PT IN BED RESTING WITH EYES CLOSED, NO RESPONSE TO VERBAL STIMULI. RESPERATIONS SHALLOW ON RA. PT IS ON COMFORT MEASURES. MULTIPLE FAMILY MEMBERS AT BED SIDE. BED LOW, CL IN REACH.
[2018-12-03 20:00] VITALS: BP 114/52
--- NOTE | 2018-12-03 22:04 | NUR ---
CHANGED PTS BRIEFS AND PADDING. REPOSITIONED IN BED FOR COMFORT. AT BED SIDE. PILLOW GIVEN TO AT HER REQUEST.
--- NOTE | 2018-12-03 23:18 | NUR ---
NOTIFIED BY MT THAT PTS TELEMETRY WAS READING ASYSTOLE. UPON ENTERING ROOM, PT IS IN BED, NO RESPERATIONS OR HEART BEAT NOTED UPON AUSCULTATION. AT BED SIDE. INFORMED ME THAT THEY WILL BE USING [facility] IN [place]. CALL PLACED TO ENRIQUE RAMAN APN TRAIN CONTROL TECHNICIAN FOR DR BANSAL AND CREDIT RISK MODELER Anel JIANG NOTIFED OF .
--- NOTE | 2018-12-04 00:16 | NUR ---
CHRISTY NOTIED OF PTS PASSING.
--- NOTE | 2018-12-04 00:37 | NUR ---
CALL OUT TO HELP DESK SPECIALIST.
--- NOTE | 2018-12-04 08:42 | MORECARE ---
CASE MANAGEMENT DISCHARGE SUMMARY PATIENT: Tien BATISTA UNIT: [id number] ADM DATE: 12/02/18 AGE: 78 : 38 SEX: M ROOM/BED: D.1911 AUTHOR: NISHANT VICK PHYSICIAN: REFERRING PHYSICIAN: KEVIN BANSAL MD DATE OF SERVICE: 12/04/18 Discharge Plan Patient Name: Tien BATISTA [facility] [facility] 1940 Planned Disposition: Anticipated Discharge Date: 12/03/18 Discharge Date: 12/04/2018 Expected LOS: 1 Initial Reviewer: [email or web address] Initial Review Date: 12/02/2018 Generated: 12/04/18 9:41 am Comments DCP- Discharge Planning Updated by [email or web address]: Ambrosio Lynn on 12/03/18 12:[address] Patient Name: Tien BATISTA Encounter No: [id number] : 1940 Primary Insurance: MEDICARE A & B Anticipated DC Date: Planned Disposition: DISCHARGE PLANNING NOTE: CM UNABLE TO ASSESS PT DUE TO RAPID RESPONSE AT THIS TIME. CM TO ATTEMPT ASSESSMENT OF PT AT A LATER TIME. Ambrosio Lynn, CASE MANAGEMENT Last DP export: 12/03/18 12:18 pm Patient Name: Tien BATISTA Page [phone] at 0842 All edits/amendments must be made on the electronic document DICTATION DATE: 12/04/18840 CLOUD DEVELOPER: KIMBERLY 12/04/1841 RPT#: [id number] DC DATE:12/04/18 STATUS: DIS IN [facility] [address] [place] [address] END OF REPORT
== END 2018-12-04 00:56 | DRG 193 ==
LOC: D.ER 16:16 → D.M2 18:13
PROVIDERS: Family Medicine; ADMIT Internal Medicine Nephrology; ATTEND Internal Medicine Nephrology
PROC: 5A09357 Assistance with Respiratory Ventilation, Less than 24 Consecutive Hours, Continuous Positive Airway Pressure (ICD-10-PCS; principal; 2018-12-03)
DX: J18.9 Pneumonia, unspecified organism (principal); N18.6 End stage renal disease; G92 Toxic encephalopathy; J96.02 Acute respiratory failure with hypercapnia; J96.01 Acute respiratory failure with hypoxia; J86.9 Pyothorax without fistula; J90 Pleural effusion, not elsewhere classified; I12.0 Hypertensive chronic kidney disease with stage 5 chronic kidney disease or end stage renal disease; F03.90 Unspecified dementia, unspecified severity, without behavioral disturbance, psychotic disturbance, mood disturbance, and anxiety; K21.9 Gastro-esophageal reflux disease without esophagitis; N40.0 Benign prostatic hyperplasia without lower urinary tract symptoms; D64.9 Anemia, unspecified; Y95 Nosocomial condition; Z66 Do not resuscitate; Z51.5 Encounter for palliative care